=== PATIENT | male | born 1930 | race Caucasian/White ===

== ENCOUNTER 2017-01-11 11:16 | Inpatient (IN) | payer MEDICARE, MEDICAID ==
[2017-01-11 11:17] VITALS: BMI 29.6
[2017-01-11] MEDS ORDERED: Sodium Chloride 0.9% 1,000 ML IV ONE (11:29)
[2017-01-11 11:48] LABS: BASO # 0.1 K/uL (0.0-0.2); BASO % 1.3 % (0.0-2.0); EOS # 0.2 K/uL (0.0-0.7); EOS % 4.4 % (0.0-4.0); LYMPH # 1.9 K/uL (1.0-4.3); MEAN CELL VOLUME 90.6 fL (80.0-94.0); MEAN CORPUSCULAR HEMOGLOBIN 30.4 pg (27.0-31.0); MEAN CORPUSCULAR HGB CONC 33.5 g/dL (33.0-37.0); MEAN PLATELET VOLUME 8.3 fL (7.2-11.7); MONO # 0.6 K/uL (0.0-0.8); MONO % 11.4 % (0.0-10.0); NEUT # 2.5 K/uL (1.8-7.0); NEUT % 47.9 % (50.0-75.0); NRBC % 0.1 % (0.0-2.0); RBC 3.95 Mil/uL (4.40-5.90); RED CELL DISTRIBUTION WIDTH 13.4 % (11.5-14.5); WHITE BLOOD COUNT 5.3 K/uL (4.8-10.8)
[2017-01-11] MEDS ORDERED: Sodium Chloride 0.9% 1,000 ML ONE (11:48)
[2017-01-11 11:49] LABS: INR 1.1
[2017-01-11 11:58] LABS: ALBUMIN 3.6 g/dL (3.5-5.0)
[2017-01-11 12:02] LABS: ALB/GLOB RATIO 1.1 (1.0-2.1); CALCIUM 8.5 mg/dl (8.6-10.4)
--- NOTE | 2017-01-11 12:11 | C.PDOC ---
History Of Present Illness 87 y/o male, with history of HTN, DM, diverticulitis, presents to the emergency department for evaluation of abdominal pain which began around 2 weeks ago. Patient states he was evaluated and [place] [facility] for same complaint. Patient also notes he has been feeling weak. He denies fever, chills , nausea, vomiting. PMD: Dr. Carranza Time Seen by Provider: 01/11/17 11:21 Chief Complaint (Nursing): Abdominal Pain History Per: Patient History/Exam Limitations: no limitations Onset/Duration Of Symptoms: Other (2 weeks ) Current Symptoms Are (Timing): Still Present Radiation Of Pain To:: None Quality Of Discomfort: "Pain" Associated Symptoms: denies: Fever, Chills, Nausea, Vomiting Additional History Per: Patient Past Medical History Reviewed: Historical Data, Nursing Documentation, Vital Signs Vital Signs: Last Vital Signs Temp 98.1 F 01/11/17 15:45 Pulse 80 01/11/17 15:45 Resp 18 01/11/17 15:45 BP 104/62 01/11/17 15:45 Pulse Ox 96 01/11/17 15:45 - Medical History PMH: Diverticulitis, HTN Surgical History: Cholecystectomy, Pacemaker - [facility] Procedures COLONOSCOPY (11/30/14) ENDOSC POLYPECTOMY OF LG INTEST (03/13/07) Family History: States: Unknown Family Hx - Social History Hx Alcohol Use: No Hx Substance Use: No - Immunization History Hx Tetanus Toxoid Vaccination: No Hx Influenza Vaccination: Yes Hx Pneumococcal Vaccination: Yes Review Of Systems Constitutional: Negative for: Fever, Chills Gastrointestinal: Positive for: Abdominal Pain. Negative for: Nausea, Vomiting Neurological: Positive for: Weakness Physical Exam - Physical Exam Appears: Non-toxic, No Acute Distress Skin: Normal Color, Warm, Dry Head: Atraumatic Eye(s): bilateral: Normal Inspection Oral Mucosa: Moist Neck: Supple Chest: Symmetrical, No Deformity, No Tenderness Cardiovascular: Rhythm Regular, No Murmur Respiratory: Normal Breath Sounds, No Rales, No Rhonchi, No Wheezing Gastrointestinal/Abdominal: Soft, No Tenderness, No Guarding, No Rebound Back: Normal Inspection Extremity: Normal ROM, Capillary Refill (less than 2 seconds ) Neurological/Psych: Normal Speech, Normal Cognition Gait: Steady ED Course And Treatment - Laboratory Results Result Diagrams: 01/11/17 11:40 01/11/17 11:40 Lab Interpretation: No Acute Changes ECG: Interpreted By Me ECG Rhythm: V Paced ECG Interpretation: No Acute Changes O2 Sat by Pulse Oximetry: 98 (on RA) Pulse Ox Interpretation: Normal - Radiology Nexus Criteria: Focal Neuro Deficit - CT Scan/US No standard instances Other Rad Studies (CT/US): Read By Radiologist CT/US Interpretation: FINDINGS: LOWER THORAX: There is dependent atelectasis in the lung bases. There are calcified pleural plaques in the basilar pleura bilaterally. LIVER: The liver is normal in size. No gross lesion or ductal dilatation. GALLBLADDER AND BILE DUCTS: Surgically absent. PANCREAS: The pancreas is normal in size. No gross lesion or ductal dilatation. SPLEEN: The spleen is normal in size. ADRENALS: Both adrenal glands are normal in size without discrete nodule. KIDNEYS AND URETERS: Both kidneys are normal in size without hydronephrosis or nephrolithiasis. The non specific perinephric fat stranding. VASCULATURE: No aortic aneurysm. There are atherosclerotic aortoiliac calcifications. BOWEL: The small bowel loops are normal in caliber. There is left colonic diverticulosis. There is fluid in the descending and sigmoid colon. There is moderate amount of stool in the ascending and transverse colon. APPENDIX: Normal appendix. PERITONEUM: No free fluid. No free air. LYMPH NODES: No enlarged lymph nodes. BLADDER: Normal in appearance. REPRODUCTIVE: There is mild enlargement of the prostate gland. BONES: No acute fracture. Multilevel degenerative disc disease. OTHER FINDINGS : None. IMPRESSION: Extensive left colonic diverticulosis. No definite CT evidence for acute diverticulitis. No acute abdominal or pelvic abnormality constipation. 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 Progress Note: Labs, CT labs, and EKG ordered and reviewed. Patient received IV Fluids. On re-evaluation unable to ambulate Reassessment Condition: Improved - Physician Consult Information Physician Contacted: Kandi Ford Outcome Of Conversation: admit Disposition Doctor Will See Patient In The: Hospital Counseled Patient/Family Regarding: Studies Performed - Disposition Disposition: HOSPITALIZED Disposition Time: 16:00 Condition: STABLE - Clinical Impression Clinical Impression: Constipation, Abdominal discomfort, Dizziness, Kidney failure - PA / TREE KILLER / Resident Statement MD/DO has reviewed & agrees with the documentation as recorded. - Scribe Statement The provider has reviewed the documentation as recorded by the Scribe (Dee Ford) All medical record entries made by the Scribe were at my direction and personally dictated by me. I have reviewed the chart and agree that the record accurately reflects my personal performance of the history, physical exam, medical decision making, and the department course for this patient. I have also personally directed, reviewed, and agree with the discharge instructions and disposition. Decision To Admit - Pt Status Changed To: Hospital Disposition Of: Inpatient - Admit Certification Admit to Inpatient:: After my assessment, the patient will require hospitalization for at least two midnights. This is because of the severity of symptoms shown, intensity of services needed, and/or the medical risk in this patient being treated as an outpatient. - InPatient: Physician Admission Certification:: Chronic kidney Disease. Dizziness. Abdominal Pain - . Bed Request Type: Regular Admitting Physician: Todd Rizo Patient Diagnosis: Constipation, Abdominal discomfort, Dizziness, Kidney failure
--- NOTE | 2017-01-11 12:48 | CT ---
PROCEDURE: CT Abdomen and Pelvis without intravenous contrast HISTORY: Pain COMPARISON: None. TECHNIQUE: CT scan of the abdomen and pelvis was performed without administration of oral contrast. Intravenous contrast was not administered. Coronal and sagittal reformatted images were obtained. Radiation dose: Total exam DLP = 537.43 mGy-cm. This CT exam was performed using one or more of the following dose reduction techniques: Automated exposure control, adjustment of the mA and/or kV according to patient size, and/or use of iterative reconstruction technique. FINDINGS: LOWER THORAX: There is dependent atelectasis in the lung bases. There are calcified pleural plaques in the basilar pleura bilaterally. LIVER: The liver is normal in size. No gross lesion or ductal dilatation. GALLBLADDER AND BILE DUCTS: Surgically absent. PANCREAS: The pancreas is normal in size. No gross lesion or ductal dilatation. SPLEEN: The spleen is normal in size. ADRENALS: Both adrenal glands are normal in size without discrete nodule. KIDNEYS AND URETERS: Both kidneys are normal in size without hydronephrosis or nephrolithiasis. The non specific perinephric fat stranding. VASCULATURE: No aortic aneurysm. There are atherosclerotic aortoiliac calcifications. BOWEL: The small bowel loops are normal in caliber. There is left colonic diverticulosis. There is fluid in the descending and sigmoid colon. There is moderate amount of stool in the ascending and transverse colon. APPENDIX: Normal appendix. PERITONEUM: No free fluid. No free air. LYMPH NODES: No enlarged lymph nodes. BLADDER: Normal in appearance. REPRODUCTIVE: There is mild enlargement of the prostate gland. BONES: No acute fracture. Multilevel degenerative disc disease. OTHER FINDINGS: None. IMPRESSION: Extensive left colonic diverticulosis. No definite CT evidence for acute diverticulitis. No acute abdominal or pelvic abnormality constipation. 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
[2017-01-11 13:52] LABS: URINE BILIRUBIN NEGATIVE (NEGATIVE); URINE BLOOD NEGATIVE (NEGATIVE); URINE CLARITY Clear (Clear); URINE COLOR Yellow (YELLOW); URINE GLUCOSE (UA) NORMAL (Normal); URINE LEUKOCYTE ESTERASE NEG Leu/uL (Negative); URINE NITRATE NEGATIVE (NEGATIVE); URINE PROTEIN NEGATIVE (NEGATIVE); URINE UROBILINOGEN NORMAL mg/dL (0.2-1.0)
--- NOTE | 2017-01-11 18:46 | CP.PCM.HP ---
History of Present Illness - History of Present Illness History of Present Illness: Chief complaint: Weakness abdominal pain History present illness: 87-year-old male with history of hypertension diabetes diverticulosis recently was hospitalized with acute diverticulitis days, discharged to a week ago from the hospital. At home patient condition slowly got worse, he was not able to get up, he fell at least to 2 times while at home. According to the patient's family he is having unstable gait, and walking is somewhat disturbed, unable to stand up by himself, he needs assistance also. He is also having significant shaking. Recently he also started having increasing pain over the left upper quadrant, associated with the episodes of diarrhea, sometimes nausea. No fever noted, denies any chills. Shaking noted. Patient in the [facility] had treatment for diverticulosis and diverticulitis with the antibiotic. Past medical history: Hypertension diabetes diverticulosis pacemaker Allergy: No known drug allergy Personal history: Not spoken nonalcoholic lives with family members. No significant family history Review of system: Currently having no headache, but in consistent with weakness tiredness and easy fatigability. Unstable walking, and also falls. Patient has a pacemaker Vital signs reviewed No neck vein distention noted Chest good air entry bilaterally, no wheezing or rales noted CVS regular heart sound, no murmur noted Abdomen soft, nontender. Extremities no pedal edema [employer] alert awake oriented 3, no functional neurological deficit Patient is having shaking as well as tremor resting. Flapping tremor also noted occasionally. Labs reviewed Elevated creatinine level noted. 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 Abdominal pain, nonspecific, associated diverticulosis. Possible diverticulitis cannot be ruled out, dehydration, will continue the IV fluid, and intravenous Flagyl. Antibiotic. IV fluid. Monitor the fluid status. And will follow the patient Present on Admission - Present on Admission Any Indicators Present on Admission: No History of DVT/PE: No History of Uncontrolled Diabetes: No Urinary Catheter: No Decubitus Ulcer Present: No Past Patient History - Infectious Disease Hx of Infectious Diseases: None - Past Medical History & Family History Past Medical History?: Yes - Past Social History Smoking Status: Never Smoked - CARDIAC Hx Hypertension: Yes Hx Pacemaker: Yes - PULMONARY Hx Respiratory Disorders: No - NEUROLOGICAL Hx Neurological Disorder: No - HEENT Hx HEENT Problems: No - RENAL Hx Chronic Kidney Disease: No - ENDOCRINE/METABOLIC Hx Endocrine Disorders: Yes Hx Diabetes Mellitus Type 2: Yes - HEMATOLOGICAL/ONCOLOGICAL Hx Blood Disorders: No - INTEGUMENTARY Hx Dermatological Problems: No - MUSCULOSKELETAL/RHEUMATOLOGICAL Hx Musculoskeletal Disorders: No - GASTROINTESTINAL Hx Diverticulitis: Yes - GENITOURINARY/GYNECOLOGICAL Hx Genitourinary Disorders: No - PSYCHIATRIC Hx Substance Use: No - SURGICAL HISTORY Hx Cholecystectomy: Yes - ANESTHESIA Hx Anesthesia: Yes Hx Anesthesia Reactions: No Hx Malignant Hyperthermia: No Meds Allergies/Adverse Reactions: Allergies Allergy/AdvReac Type Severity Reaction Status Date / Time No Known Allergies Allergy Verified 01/11/17 11:28 Results - Vital Signs Recent Vital Signs: Last Vital Signs Temp 98.1 F 01/11/17 15:45 Pulse 80 01/11/17 15:45 Resp 18 01/11/17 15:45 BP 104/62 01/11/17 15:45 Pulse Ox 98 01/11/17 16:39 - Labs Result Diagrams: 01/11/17 11:40 01/11/17 11:40 Labs: Laboratory Results - last 24 hr 01/11/17 17:00 POC Glucose (mg/dL) 157 H
[2017-01-11] MEDS: Sodium Chloride 0.45% 1,000 ML IV SCH (19:19)
[2017-01-11 20:11] VITALS: RESP 20
--- NOTE | 2017-01-11 22:02 | CP.PCM.CON ---
History of Present Illness - History of Present Illness History of Present Illness: COVERING DR BOWERS (PATIENT KNOWN TO HIM FROM 2014 AND OFFICE) 87 yo male recently admitted to [facility] [place] for treatment of diverticulitis. Admitted today for lower abdominal pain and difficulty passing his bowels. Review of old records reveal patient had follow up colonoscopy in 11/2014 due to h/o colon polyps in the past and was found to have diverticulosis. CT Scan done in ER shows no acute findings in abdomen and pelvis other than left sided diverticular disease and moderate colonic stool and liquid. No mass, inflammation or obstruction. No bleeding, N/V. Pain is mostly in the epigastric and LUQ. Not relieved by defecation. Reports heartburn as well. Review of Systems - Constitutional Constitutional: absent: Anorexia, Weight Loss, Weakness - Cardiovascular Cardiovascular: absent: Chest Pain, Dyspnea, Irregular Heart Rhythm - Respiratory Respiratory: absent: Cough - Gastrointestinal Gastrointestinal: As Per HPI - Genitourinary Genitourinary: absent: Dysuria Past Patient History - Infectious Disease Hx of Infectious Diseases: None - Past Medical History & Family History Past Medical History?: Yes - Past Social History Smoking Status: Never Smoked Alcohol: None Drugs: Denies - CARDIAC Hx Hypertension: Yes Hx Pacemaker: Yes - PULMONARY Hx Respiratory Disorders: No - NEUROLOGICAL Hx Neurological Disorder: No - HEENT Hx HEENT Problems: No - RENAL Hx Chronic Kidney Disease: No - ENDOCRINE/METABOLIC Hx Endocrine Disorders: Yes Hx Diabetes Mellitus Type 2: Yes - HEMATOLOGICAL/ONCOLOGICAL Hx Blood Disorders: No Hx Cirrhosis: No Hx Hepatitis A: No Hx Hepatitis B: No Hx Hepatitis C: No Hx Human Immunodeficiency Virus (HIV): No - INTEGUMENTARY Hx Dermatological Problems: No - MUSCULOSKELETAL/RHEUMATOLOGICAL Hx Falls: No - GASTROINTESTINAL Hx Bowel Surgery: No Hx Clostridium Difficile: No Hx Colitis: No Hx Colostomy: No Hx Constipation: Yes Hx Crohn's Disease: No Hx Diarrhea: No Hx Diverticulitis: Yes Hx Esophageal Varices: No Hx Fatty Liver Disease: No Hx Gall Bladder Disease: No Hx Gastritis: No Hx Gastroesophageal Reflux: No Hx Hemorrhoids: Yes Hx Ileostomy: No Hx Irritable Bowel: No Hx Liver Failure: No Hx Nausea: No Hx Pancreatitis: No HX Swallowing Problems: No Hx Ulcer: No Hx Vomiting: No Other/Comment: colon polyps last colonoscopy by Dr Bowers 11/2014 - GENITOURINARY/GYNECOLOGICAL Hx Genitourinary Disorders: No - PSYCHIATRIC Hx Substance Use: No - SURGICAL HISTORY Hx Cholecystectomy: Yes - ANESTHESIA Hx Anesthesia: Yes Hx Anesthesia Reactions: No Hx Malignant Hyperthermia: No Meds Allergies/Adverse Reactions: Allergies Allergy/AdvReac Type Severity Reaction Status Date / Time No Known Allergies Allergy Verified 01/11/17 11:28 - Medications Medications: Current Medications Amlodipine Besylate (Norvasc) 10 mg PO DAILY [facility] Clopidogrel Bisulfate (Plavix) 75 mg PO DAILY [facility] Sodium Chloride (Sodium Chloride 0.45%) 1,000 mls @ 75 mls/hr IV .[id number] [facility] Last Admin: 01/11/17 19:19 Dose: 75 mls/hr Metronidazole 250 mg/ (Miscellaneous) 50 mls @ 100 mls/hr IVPB Q8 [facility] Isosorbide Mononitrate (Imdur) 30 mg PO DAILY [facility] Tamsulosin HCl (Flomax) 0.4 mg PO DAILY [facility] Physical Exam - Constitutional Appears: No Acute Distress - Head Exam Head Exam: ATRAUMATIC, NORMOCEPHALIC - Eye Exam Eye Exam: EOMI, PERRL - Neck Exam Neck exam: Negative for: Tenderness, Thyromegaly - Respiratory Exam Respiratory Exam: Clear to Auscultation Bilateral, NORMAL BREATHING PATTERN - Cardiovascular Exam Cardiovascular Exam: REGULAR RHYTHM, +S1 - GI/Abdominal Exam GI & Abdominal Exam: Normal Bowel Sounds, Soft, Tenderness. absent: Distended, Guarding, Hernia, Mass, Rebound Additional comments: Mild epigastric and LUQ tenderness to deep palpation. No masses or rebound. Normal bowel sounds - Rectal Exam Rectal Exam: NORMAL INSPECTION. absent: Black Stool, Bloody Stool - Extremities Exam Extremities exam: Positive for: normal inspection. Negative for: joint swelling , pedal edema, tenderness - Neurological Exam Neurological exam: Alert, Oriented x3 - Psychiatric Exam Psychiatric exam: Normal Affect, Normal Mood - Skin Skin Exam: Dry, Warm Results - Vital Signs Recent Vital Signs: Last Vital Signs Temp 97.1 F L 01/11/17 16:00 Pulse 72 01/11/17 16:00 Resp 20 01/11/17 16:00 BP 116/62 01/11/17 16:00 Pulse Ox 98 01/11/17 16:39 - Labs Result Diagrams: 01/12/17 08:24 01/12/17 08:24 Labs: Laboratory Results - last 24 hr 01/11/17 01/11/17 17:00 21:12 POC Glucose (mg/dL) 157 H 48 L - Imaging and Cardiology CT scan - abdomen Status: Image reviewed by me, Report reviewed by me Assessment & Plan (1) LUQ abdominal pain Assessment and Plan: No CT evidence of infection, inflammation or obstruction. Some symptoms suggestive of GERD, gastritis or PUD. Advance diet as tolerated. Protonix IV Consider EGD if symptoms persist. Colonoscopy done two years ago. Stool OBx3. Status: Acute (2) Diverticula of colon Assessment and Plan: as above. No diverticulitits seen on CT exam. Status: Acute (3) H/O adenomatous polyp of colon Assessment and Plan: f/u with Dr Bowers though age beyond that of recommended screening/surveillance by [facility]. Status: Acute
[2017-01-11] MEDS: metroNIDAZOLE IV 500 mg/100 ml 250 MG in Premixed IV 1 EA IVPB SCH (22:14)
[2017-01-12] MEDS: metroNIDAZOLE IV 500 mg/100 ml 250 MG in Premixed IV 1 EA IVPB SCH (05:20)
[2017-01-12 08:34] LABS: BASO # 0.1 K/uL (0.0-0.2); EOS # 0.3 K/uL (0.0-0.7); EOS % 4.9 % (0.0-4.0); HEMOGLOBIN 13.7 g/dL (12.0-18.0); LYMPH # 1.9 K/uL (1.0-4.3); LYMPH % 37.4 % (20.0-40.0); MEAN CELL VOLUME 90.7 fL (80.0-94.0); MEAN CORPUSCULAR HEMOGLOBIN 30.9 pg (27.0-31.0); MEAN CORPUSCULAR HGB CONC 34.1 g/dL (33.0-37.0); MEAN PLATELET VOLUME 8.4 fL (7.2-11.7); MONO # 0.5 K/uL (0.0-0.8); MONO % 10.5 % (0.0-10.0); NEUT # 2.3 K/uL (1.8-7.0); NEUT % 45.2 % (50.0-75.0); NRBC % 0.1 % (0.0-2.0); RBC 4.43 Mil/uL (4.40-5.90); RED CELL DISTRIBUTION WIDTH 13.6 % (11.5-14.5); WHITE BLOOD COUNT 5.2 K/uL (4.8-10.8)
[2017-01-12 08:44] LABS: ALB/GLOB RATIO 1.4 (1.0-2.1); ALBUMIN 3.9 g/dL (3.5-5.0)
[2017-01-12 09:40] LABS: FREE T4 0.77 ng/dL (0.78-2.19)
--- NOTE | 2017-01-12 09:52 | CT ---
PROCEDURE: CT HEAD WITHOUT CONTRAST. HISTORY: stroke /SDH COMPARISON: None available. TECHNIQUE: Axial computed tomography images were obtained through the head/brain without intravenous contrast. Radiation dose: Total exam DLP = 898.33 mGy-cm. This CT exam was performed using one or more of the following dose reduction techniques: Automated exposure control, adjustment of the mA and/or kV according to patient size, and/or use of iterative reconstruction technique. FINDINGS: HEMORRHAGE: No intracranial hemorrhage. BRAIN: There are mild chronic microangiopathic changes. There is no mass, mass effect or abnormal extra-axial fluid collection. VENTRICLES: There is moderate age-related global parenchymal volume loss and proportionate enlargement of the ventricles and cortical sulci. CALVARIUM: The skull base and calvarium are normal. PARANASAL SINUSES: Predominantly clear. MASTOID AIR CELLS: Predominantly clear. OTHER FINDINGS: None. . IMPRESSION: No acute intracranial abnormality. Mild chronic microangiopathic changes and moderate age-related global parenchymal volume loss.
[2017-01-12] MEDS: Sodium Chloride 0.45% 1,000 ML IV SCH ×2 (10:21→22:10)
[2017-01-12 11:06] LABS: FOLATE 17.4 ng/mL
--- NOTE | 2017-01-12 12:01 | CP.PCM.PN ---
Subjective - Date & Time of Evaluation Date of Evaluation: 01/12/17 Time of Evaluation: 11:59 - Subjective Subjective: Pain is better. Tolerating liquid diet. Reports a normal stool this am. Still with LUQ and epigastric mild discomfort. Lower abdomen no symptoms. Objective - Vital Signs/Intake and Output Vital Signs (last 24 hours): Temp Pulse Resp BP Pulse Ox 98.3 F 78 20 125/72 94 L 01/12/17 08:43 01/12/17 08:43 01/12/17 08:43 01/12/17 08:43 01/12/17 08:43 Intake and Output: 01/12/17 01/12/17 06:59 18:59 Intake Total 1600 Output Total 850 Balance 750 - Medications Medications: Current Medications Amlodipine Besylate (Norvasc) 10 mg PO DAILY [facility] Last Admin: 01/12/17 10:21 Dose: 10 mg Clopidogrel Bisulfate (Plavix) 75 mg PO DAILY [facility] Last Admin: 01/12/17 10:16 Dose: 75 mg Famotidine (Pepcid) 20 mg IVP Q12 [facility] Last Admin: 01/12/17 10:16 Dose: 20 mg Sodium Chloride (Sodium Chloride 0.45%) 1,000 mls @ 75 mls/hr IV .[id number] [facility] Last Admin: 01/12/17 10:21 Dose: 75 mls/hr Metronidazole (Flagyl) 250 mg in 50 mls @ 100 mls/hr IVPB Q8 [facility] Stop: 01/16/17 22:01 Isosorbide Mononitrate (Imdur) 30 mg PO DAILY [facility] Last Admin: 01/12/17 10:16 Dose: 30 mg Tamsulosin HCl (Flomax) 0.4 mg PO DAILY [facility] Last Admin: 01/12/17 10:16 Dose: 0.4 mg - Labs Labs: 01/12/17 08:24 01/12/17 08:24 PT 13.0 SECONDS (9.7-12.2) H 01/11/17 11:40 INR 1.1 01/11/17 11:40 - Constitutional Appears: No Acute Distress - Respiratory Exam Respiratory Exam: NORMAL BREATHING PATTERN - Cardiovascular Exam Cardiovascular Exam: REGULAR RHYTHM - GI/Abdominal Exam GI & Abdominal Exam: Soft, Tenderness, Normal Bowel Sounds. absent: Distended, Guarding, Rigid, Mass, Rebound - Extremities Exam Extremities Exam: Normal Inspection Assessment and Plan (1) LUQ abdominal pain Assessment & Plan: Advance diet as tolerated. Out patient follow up if tolerating diet today with Dr Mcgee. Awaiting stool OB On Protonix Status: Acute (2) Diverticula of colon Status: Acute (3) H/O adenomatous polyp of colon Status: Acute
[2017-01-12] MEDS: metroNIDAZOLE IV 250mg/50 ml 250 MG/50 ML BAG IVPB SCH ×2 (13:41→21:55)
--- NOTE | 2017-01-12 14:19 | CP.PCM.CON ---
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 PT AC REHAB WHEN MEDICALLY STABLE Past Patient History - Infectious Disease Hx of Infectious Diseases: None - Past Medical History & Family History Past Medical History?: Yes - Past Social History Smoking Status: Never Smoked Alcohol: None Drugs: Denies - CARDIAC Hx Hypertension: Yes Hx Pacemaker: Yes - PULMONARY Hx Respiratory Disorders: No - NEUROLOGICAL Hx Neurological Disorder: No - HEENT Hx HEENT Problems: No - RENAL Hx Chronic Kidney Disease: No - ENDOCRINE/METABOLIC Hx Endocrine Disorders: Yes Hx Diabetes Mellitus Type 2: Yes - HEMATOLOGICAL/ONCOLOGICAL Hx Blood Disorders: No Hx Cirrhosis: No Hx Hepatitis A: No Hx Hepatitis B: No Hx Hepatitis C: No Hx Human Immunodeficiency Virus (HIV): No - INTEGUMENTARY Hx Dermatological Problems: No - MUSCULOSKELETAL/RHEUMATOLOGICAL Hx Falls: No - GASTROINTESTINAL Hx Bowel Surgery: No Hx Clostridium Difficile: No Hx Colitis: No Hx Colostomy: No Hx Constipation: Yes Hx Crohn's Disease: No Hx Diarrhea: No Hx Diverticulitis: Yes Hx Esophageal Varices: No Hx Fatty Liver Disease: No Hx Gall Bladder Disease: No Hx Gastritis: No Hx Gastroesophageal Reflux: No Hx Hemorrhoids: Yes Hx Ileostomy: No Hx Irritable Bowel: No Hx Liver Failure: No Hx Nausea: No Hx Pancreatitis: No HX Swallowing Problems: No Hx Ulcer: No Hx Vomiting: No Other/Comment: colon polyps last colonoscopy by Dr Mcgee 11/2014 - GENITOURINARY/GYNECOLOGICAL Hx Genitourinary Disorders: No - PSYCHIATRIC Hx Substance Use: No - SURGICAL HISTORY Hx Cholecystectomy: Yes - ANESTHESIA Hx Anesthesia: Yes Hx Anesthesia Reactions: No Hx Malignant Hyperthermia: No Meds Allergies/Adverse Reactions: Allergies Allergy/AdvReac Type Severity Reaction Status Date / Time No Known Allergies Allergy Verified 01/11/17 11:28 - Medications Medications: Current Medications Amlodipine Besylate (Norvasc) 10 mg PO DAILY [facility] Last Admin: 01/12/17 10:21 Dose: 10 mg Clopidogrel Bisulfate (Plavix) 75 mg PO DAILY [facility] Last Admin: 01/12/17 10:16 Dose: 75 mg Famotidine (Pepcid) 20 mg IVP Q12 [facility] Last Admin: 01/12/17 10:16 Dose: 20 mg Sodium Chloride (Sodium Chloride 0.45%) 1,000 mls @ 75 mls/hr IV .[id number] [facility] Last Admin: 01/12/17 10:21 Dose: 75 mls/hr Metronidazole (Flagyl) 250 mg in 50 mls @ 100 mls/hr IVPB Q8 [facility] Stop: 01/16/17 22:01 Last Admin: 01/12/17 13:41 Dose: 100 mls/hr Isosorbide Mononitrate (Imdur) 30 mg PO DAILY [facility] Last Admin: 01/12/17 10:16 Dose: 30 mg Tamsulosin HCl (Flomax) 0.4 mg PO DAILY [facility] Last Admin: 01/12/17 10:16 Dose: 0.4 mg Results - Vital Signs Recent Vital Signs: Last Vital Signs Temp 98.3 F 01/12/17 08:43 Pulse 78 01/12/17 08:43 Resp 20 01/12/17 08:43 BP 125/72 01/12/17 08:43 Pulse Ox 94 L 01/12/17 08:43 - Labs Result Diagrams: 01/12/17 08:24 01/12/17 08:24 Labs: Laboratory Results - last 24 hr 01/11/17 01/11/17 01/11/17 17:00 21:12 21:50 WBC RBC Hgb Hct MCV MCH MCHC RDW Plt Count MPV Neut % (Auto) Lymph % (Auto) [place] % (Auto) Eos % (Auto) Baso % (Auto) Neut # Lymph # [place] # Eos # Baso # ESR Sodium Potassium Chloride Carbon Dioxide Anion Gap BUN Creatinine Est GFR ( Amer) Est GFR (Non-Af Amer) POC Glucose (mg/dL) 157 H 48 L 93 Random Glucose Calcium Total Bilirubin AST ALT Alkaline Phosphatase Ammonia C-React Prot High Sens Total Protein Albumin Globulin Albumin/Globulin Ratio Vitamin B12 Folate Free T4 TSH 3rd Generation 01/11/17 01/12/17 01/12/17 23:52 01:55 07:10 WBC RBC Hgb Hct MCV MCH MCHC RDW Plt Count MPV Neut % (Auto) Lymph % (Auto) [place] % (Auto) Eos % (Auto) Baso % (Auto) Neut # Lymph # [place] # Eos # Baso # ESR Sodium Potassium Chloride Carbon Dioxide Anion Gap BUN Creatinine Est GFR ( Amer) Est GFR (Non-Af Amer) POC Glucose (mg/dL) 100 74 Random Glucose Calcium Total Bilirubin AST ALT Alkaline Phosphatase Ammonia 20 C-React Prot High Sens Total Protein Albumin Globulin Albumin/Globulin Ratio Vitamin B12 Folate Free T4 TSH 3rd Generation 01/12/17 01/12/17 01/12/17 08:24 08:24 08:24 WBC 5.2 RBC 4.43 Hgb 13.7 Hct 40.2 MCV 90.7 MCH 30.9 MCHC 34.1 RDW 13.6 Plt Count 223 MPV 8.4 Neut % (Auto) 45.2 L Lymph % (Auto) 37.4 Mon[place] % (Auto) 10.5 H Eos % (Auto) 4.9 H Baso % (Auto) 2.0 Neut # 2.3 Lymph # 1.9 Monona # 0.5 Eos # 0.3 Baso # 0.1 ESR 14 Sodium 137 Potassium 4.4 Chloride 100 Carbon Dioxide 25 Anion Gap 17 BUN 20 Creatinine 1.5 Est GFR ( Amer) 54 Est GFR (Non-Af Amer) 44 POC Glucose (mg/dL) Random Glucose 109 Calcium 9.0 Total Bilirubin 0.5 AST 29 ALT 34 Alkaline Phosphatase 49 Ammonia C-React Prot High Sens 0.58 L Total Protein 6.7 Albumin 3.9 Globulin 2.8 Albumin/Globulin Ratio 1.4 Vitamin B12 444 Folate 17.4 Free T4 0.77 L TSH 3rd Generation 5.54 H 01/12/17 11:33 WBC RBC Hgb Hct MCV MCH MCHC RDW Plt Count MPV Neut % (Auto) Lymph % (Auto) [place] % (Auto) Eos % (Auto) Baso % (Auto) Neut # Lymph # [place] # Eos # Baso # ESR Sodium Potassium Chloride Carbon Dioxide Anion Gap BUN Creatinine Est GFR ( Amer) Est GFR (Non-Af Amer) POC Glucose (mg/dL) 175 H Random Glucose Calcium Total Bilirubin AST ALT Alkaline Phosphatase Ammonia C-React Prot High Sens Total Protein Albumin Globulin Albumin/Globulin Ratio Vitamin B12 Folate Free T4 TSH 3rd Generation
--- NOTE | 2017-01-12 17:24 | CON ---
ATTENDING PHYSICIAN: Dr. Todd Rizo MD LOCATION: The patient's room number 370, bed B. REASON FOR THE CONSULTATION: Dizziness and weakness. CHIEF COMPLAINT: The patient was brought into [facility] as per his primary attendant's advice because of his inability to get up by himself and history of fall at least 2 times at home. He was recently discharged from the hospital. From neurological point of view, I was called in to evaluate him for further management. HISTORY OF PRESENT ILLNESS: The patient is an 87-year-old right-handed male presenting with worsening of 2 to 3 days' history of generalized weakness, inability to walk by himself associated with fall at home. No history of loss of consciousness. This was all related to his unsteady gait. No history of association with speech and swallow evaluation. No history of visual disturbances. However, he admits dizziness whenever he sits up. No history of double vision. PAST MEDICAL HISTORY: Including diverticulitis, hypertension, diabetes mellitus. ALLERGIES: No known allergies. REVIEW OF SYSTEMS: All 12 systems being reviewed except neurological symptoms including dizziness and losing balance with fall. MEDICATIONS: Flagyl, Flomax, Imdur, Norvasc, Pepcid, Plavix, and IV fluids. PHYSICAL EXAMINATION: VITAL SIGNS: Blood pressure 125/72, mean artery pressure of 89, respiratory rate 16, temperature afebrile. NECK: Supple. No carotid bruits. HEART: Sounds *------* . LUNGS: Fair air entry. EXTREMITIES: No edema in legs. NEUROLOGICAL EXAMINATION: Mental status examination: He is awake, alert, oriented to person, place, and time. Speech intact; however, voice is too low. The patient is examined in the presence of his son. Visual field intact. Pupils reactive to light. Extraocular movements are normal. No primary gaze nystagmus. No facial sensory deficit. Mild facial asymmetry manifesting as flattening of right nasolabial fold, which maybe new versus old. Hearing is normal. Tongue is midline. Good gag. MOTOR EXAMINATION: Outstretched hand with eyes closed. No drift noted. Power is symmetric on either side. Deep tendon reflexes, biceps, brachioradialis, triceps, knee, and ankle all are absent. Plantars are upgoing on his right side, left side was downgoing. He was able to sit up by himself. Coordination of [id number] test is intact on getting out of the bed, Romberg sign negative on marching in one place leaning to his right side. CONCLUSION: Upon reviewing his history and neurological examination, the patient is presenting with generalized weakness, dizziness, history of falls due to his unsteadiness all raising the possibility of posterior cerebral artery ischemic process. The current examination also showed evidence of right hemiparesis. This is probably secondary to his underlying risk factors including hypertension, diabetes mellitus, and aging process with dehydration. WORKUP: CT of the head reviewed by me showed periventricular ischemic changes. Mild atrophy noted. EKG: Pacemaker rhythm. LABORATORY DATA: WBC 5.2, hemoglobin 13.7, hematocrit 40.2, platelets 223. Sodium 137, potassium 4.4, chloride 100, bicarbonate 17, GFR 54, glucose 175, calcium 9.0. Liver functions are normal. C-reactive protein 20, B12 444, TSH 5.54. RECOMMENDATION: 1. I agree with Plavix for now. 2. Carotid Doppler. 3. The patient cannot have MRI of the brain because of the pacemaker. 4. Hydration. 5. GI consult and recommendation to be followed. 6. The patient should be out of bed and physical therapy, including gait training, should be given while he is in the hospital. The patient's condition *------* discussed with him as well as his son. The patient will be followed while he is in the hospital. Reid Jiang MD
--- NOTE | 2017-01-12 18:44 | CP.PCM.PN ---
Subjective - Date & Time of Evaluation Date of Evaluation: 01/12/17 Time of Evaluation: 18:43 - Subjective Subjective: 87-year-old male with history of hypertension, diabetes, diverticulosis, admitted recently with acute diverticulitis. Patient readmitted with the worsening weakness, abdominal pain. Currently not able to eat well. And shaking and tremor noted, and stability upon walking. Is also having 2 episodes of fall at home. On examination: Vitals is stable. Chest good air entry bilaterally regular heart sound. Tenderness in the abdomen in the left upper quadrant region noted. Tolerating the liquid diet and this time, labs reviewed Assessment and recommendation: 87-year-old male with history diabetes, hypertension, hypercholesteremia, diuretic versus the This and diverticulitis. Admitted the patient with the worsening weakness, and also unstable gait and falling. GIneurology evaluation appreciated. Advance the diet and will follow the patient Objective - Vital Signs/Intake and Output Vital Signs (last 24 hours): Temp Pulse Resp BP Pulse Ox 97.9 F 75 20 125/67 96 01/12/17 15:00 01/12/17 15:00 01/12/17 15:00 01/12/17 15:00 01/12/17 15:00 Intake and Output: 01/12/17 01/12/17 06:59 18:59 Intake Total 1600 Output Total 850 Balance 750 - Medications Medications: Current Medications Amlodipine Besylate (Norvasc) 10 mg PO DAILY [facility] Last Admin: 01/12/17 10:21 Dose: 10 mg Clopidogrel Bisulfate (Plavix) 75 mg PO DAILY [facility] Last Admin: 01/12/17 10:16 Dose: 75 mg Diphenhydramine HCl (Benadryl) 25 mg PO HS [facility] Stop: 01/12/17 22:01 Famotidine (Pepcid) 20 mg IVP Q12 [facility] Last Admin: 01/12/17 10:16 Dose: 20 mg Sodium Chloride (Sodium Chloride 0.45%) 1,000 mls @ 75 mls/hr IV .[id number] [facility] Last Admin: 01/12/17 10:21 Dose: 75 mls/hr Metronidazole (Flagyl) 250 mg in 50 mls @ 100 mls/hr IVPB Q8 [facility] Stop: 01/16/17 22:01 Last Admin: 01/12/17 13:41 Dose: 100 mls/hr Isosorbide Mononitrate (Imdur) 30 mg PO DAILY [facility] Last Admin: 01/12/17 10:16 Dose: 30 mg Tamsulosin HCl (Flomax) 0.4 mg PO DAILY [facility] Last Admin: 01/12/17 10:16 Dose: 0.4 mg - Labs Labs: 01/12/17 08:24 01/12/17 08:24 PT 13.0 SECONDS (9.7-12.2) H 01/11/17 11:40 INR 1.1 01/11/17 11:40
[2017-01-12] MEDS ORDERED: DiphenhydrAMINE 12.5 mg/5 ml LIQ UD (5 ml) PO ONE (22:00)
[2017-01-13] MEDS: Sodium Chloride 0.45% 1,000 ML IV SCH ×2 (01:16→13:24)
[2017-01-13] MEDS: metroNIDAZOLE IV 250mg/50 ml 250 MG/50 ML BAG IVPB SCH ×3 (05:18→21:12)
--- NOTE | 2017-01-13 08:16 | PN ---
DATE: 01/13/2017 NEUROLOGICAL PROBLEM: Brainstem dysfunction manifesting with right hemiparesis, new versus old. PHYSICAL EXAMINATION GENERAL: The patient slept somewhat good, still he feels some dizziness. He did not get out of the bed. VITAL SIGNS: Blood pressure 107/69, mean arterial pressure of 81, respiratory rate 16, temperature 97.8, pulse rate 73. The current examination does not change any different than yesterday's exam. The patient is on electroencephalogram electrode placement. The patient recommended workup is on progress. Continue the present management. The patient is tolerating Plavix. The patient will be followed closely with you. Reid Jiang MD
--- NOTE | 2017-01-13 14:51 | VASCLAB ---
PROCEDURE: HISTORY: Dizziness COMPARISON: None available. TECHNIQUE: Grayscale and duplex Doppler evaluation of the cervical carotid and vertebral arteries were performed. The common carotid, carotid bifurcations and cervical Internal Carotid Artery (ICA) and proximal External Carotid Artery (ECA) were evaluated. The vertebral arteries were evaluated for gross patency and flow direction. Report prepared by Rafy Velez, BS, RVT FINDINGS: RIGHT CAROTID ARTERIES: 1. Common Carotid Artery: Minimal heterogeneous plaque formation of the right common carotid artery. Maximum Peak Systolic velocity: 75 cm/sec: End-diastolic velocity 13 cm/sec. 2. Carotid Bifurcation: Calcific plaque formation. Maximum Peak Systolic velocity: 64 cm/sec: End-diastolic velocity 10 cm/sec. 3. Internal Carotid Artery: Plaque description: Calcific 3.1. Proximal Segment: Peak systolic velocity 53 cm/sec: End-diastolic velocity 12 cm/sec - % stenosis 0-15% 3.2. Middle Segment: Peak systolic velocity 81 cm/sec: End-diastolic velocity 19 cm/sec - % stenosis 0-15% 3.3. Distal Segment: Peak systolic velocity 66 cm/sec: End-diastolic velocity 15 cm/sec - % stenosis 0-15% 4. External Carotid Artery: No significant focal plaque formation. Peak systolic velocity 78 cm/sec 5. ICA/CCA Ratio: 1.2 LEFT CAROTID ARTERIES: 1. Common Carotid Artery: Minimal heterogeneous plaque formation of the left common carotid artery. Maximum Peak Systolic velocity: 80 cm/sec: End-diastolic velocity 16 cm/sec. 2. Carotid Bifurcation: Calcific plaque formation. Maximum Peak Systolic velocity: 47 cm/sec: End-diastolic velocity 9 cm/sec. 3. Internal Carotid Artery: Plaque description: Calcific 3.1. Proximal Segment: Peak systolic velocity 66 cm/sec: End-diastolic velocity 16 cm/sec - % stenosis 0-15% 3.2. Middle Segment: Peak systolic velocity 83 cm/sec: End-diastolic velocity 20 cm/sec - % stenosis 0-15% 3.3. Distal Segment: Peak systolic velocity 74 cm/sec: End-diastolic velocity 20 cm/sec - % stenosis 0-15% 4. External Carotid Artery: No significant focal plaque formation. Peak systolic velocity 119 cm/sec 5. ICA/CCA Ratio: 1.0 VERTEBRAL ARTERIES: 1. Right Vertebral Artery: The right vertebral artery flow direction is antegrade. 2. Left Vertebral Artery: The left vertebral artery flow direction is antegrade. OTHER FINDINGS: 1. Right Brachial Blood pressure: 136 mmHg. 2. Left Brachial Blood pressure: 130 mmHg. IMPRESSION: RIGHT: Duplex scan does not suggest hemodynamically significant stenosis of the right extracranial carotid arteries. LEFT: Duplex scan does not suggest hemodynamically significant stenosis of the left extracranial carotid arteries.
--- NOTE | 2017-01-13 15:44 | CP.PCM.PN ---
Subjective - Date & Time of Evaluation Date of Evaluation: 01/13/17 Time of Evaluation: 15:42 - Subjective Subjective: CC: follow up abdominal pain upper abdominal discomfort, mild, tolerating liquids, denies constipation. On Pepcid Objective - Vital Signs/Intake and Output Vital Signs (last 24 hours): Temp Pulse Resp BP Pulse Ox 97.8 F 73 20 107/69 96 01/13/17 07:24 01/13/17 07:24 01/13/17 07:24 01/13/17 07:24 01/13/17 07:24 Intake and Output: 01/13/17 01/13/17 06:59 18:59 Intake Total 1300 1100 Output Total 800 Balance 1300 300 - Medications Medications: Current Medications Amlodipine Besylate (Norvasc) 10 mg PO DAILY [facility] Last Admin: 01/13/17 09:27 Dose: 10 mg Clopidogrel Bisulfate (Plavix) 75 mg PO DAILY [facility] Last Admin: 01/13/17 09:30 Dose: 75 mg Famotidine (Pepcid) 20 mg IVP Q12 [facility] Last Admin: 01/13/17 09:29 Dose: 20 mg Heparin Sodium (Porcine) (Heparin) 5,000 units SC Q12 [facility] Last Admin: 01/13/17 09:28 Dose: 5,000 units Sodium Chloride (Sodium Chloride 0.45%) 1,000 mls @ 75 mls/hr IV .[id number] [facility] Last Admin: 01/13/17 13:24 Dose: 75 mls/hr Metronidazole (Flagyl) 250 mg in 50 mls @ 100 mls/hr IVPB Q8 [facility] Stop: 01/16/17 22:01 Last Admin: 01/13/17 13:25 Dose: 100 mls/hr Isosorbide Mononitrate (Imdur) 30 mg PO DAILY [facility] Last Admin: 01/13/17 09:30 Dose: 30 mg Tamsulosin HCl (Flomax) 0.4 mg PO DAILY [facility] Last Admin: 01/13/17 09:30 Dose: 0.4 mg - Labs Labs: 01/12/17 08:24 PT 13.0 SECONDS (9.7-12.2) H 01/11/17 11:40 INR 1.1 01/11/17 11:40 - Constitutional Appears: Well, No Acute Distress - Head Exam Head Exam: NORMOCEPHALIC - Eye Exam Eye Exam: absent: Scleral icterus - Respiratory Exam Respiratory Exam: Clear to Ausculation Bilateral - Cardiovascular Exam Cardiovascular Exam: REGULAR RHYTHM - GI/Abdominal Exam GI & Abdominal Exam: Soft. absent: Tenderness, Mass Assessment and Plan (1) Diverticula of colon Assessment & Plan: Long history of diverticulosis. Stable. No diverticulitis Status: Acute (2) Abdominal pain Assessment & Plan: maily epigastric. ? peptic On pepcid Monitor Status: Acute
[2017-01-14] MEDS: Sodium Chloride 0.45% 1,000 ML IV SCH ×2 (00:04→13:32)
[2017-01-14 00:51] VITALS: O2SAT 97
--- NOTE | 2017-01-14 04:47 | EEG ---
DATE: 01/13/2017 This is a 16-channel electroencephalogram of awake and drowsy adult. During the study, photic stimulation was performed. Hyperventilation was not performed. The resting electroencephalogram consists of low amplitude, 20 to 30 microvolt, 8 to 9 Hz alpha activity seen at parietal and occipital leads. Anterior fast activity superimposed with 2 to 3 Hz delta activity seen at frontal and central leads. Some artifact contaminated the background rhythm. Some movement artifact also contaminated the background rhythm. The photic stimulation did not evoke driving response noted at 2 to 25 Hz. Intermittent high amplitude 3 to 4 Hz delta activity is seen. The photic stimulation did not evoke driving response noted at 2 to 25 Hz. IMPRESSION: This is a normal electroencephalogram of awake and drowsy adult. During the study neither electroencephalographic paroxysmal activities nor noted. Reid Jiang MD
[2017-01-14] MEDS: metroNIDAZOLE IV 250mg/50 ml 250 MG/50 ML BAG IVPB SCH ×2 (05:35→13:32)
[2017-01-14 07:49] VITALS: BP 131/75; PULSE 65
--- NOTE | 2017-01-14 08:08 | PN ---
DATE: 01/14/2017 NEUROLOGICAL PROBLEM: Possible posterior cerebral territory ischemic process manifesting with right hemiparesis. PHYSICAL EXAMINATION VITAL SIGNS: Blood pressure 109/59, mean arterial pressure of 75, respiratory rate is 16, temperature afebrile. NEUROLOGICAL: The patient is awake, alert, and oriented to person, place, and time. Denies dizziness. No focal weakness. The patient is stable for more than 48-hour period at present. WORKUP: CT of the brain, no acute infarct. EEG is normal for his age. No paroxysmal activities or focal swelling noted. The patient is stable with Plavix at present. No further workup is needed. The patient is neurologically stable. I would like to send him off for further assistance. Please do not hesitate to contact me. Reid Jiang MD
[2017-01-14] MEDS ORDERED: (Novolog) Insulin Aspart, Recombinant 100 u/ml 10 ml vial SC ONE (16:21)
--- NOTE | 2017-01-14 16:30 | CP.PCM.PN ---
Subjective - Date & Time of Evaluation Date of Evaluation: 01/14/17 Time of Evaluation: 16:28 - Subjective Subjective: F/U abdom pain Son is present Denies CP, SOB, fever, [facility], Rb, melena, dysphagia, Objective - Vital Signs/Intake and Output Vital Signs (last 24 hours): Temp Pulse Resp BP Pulse Ox 97.5 F L 65 20 131/75 97 01/14/17 07:46 01/14/17 07:46 01/14/17 07:46 01/14/17 07:46 01/14/17 07:46 Intake and Output: 01/14/17 01/14/17 06:59 18:59 Intake Total 1320 Balance 1320 - Medications Medications: Current Medications Amlodipine Besylate (Norvasc) 10 mg PO DAILY [facility] Last Admin: 01/14/17 09:23 Dose: 10 mg Clopidogrel Bisulfate (Plavix) 75 mg PO DAILY [facility] Last Admin: 01/14/17 09:23 Dose: 75 mg Famotidine (Pepcid) 20 mg IVP Q12 [facility] Last Admin: 01/14/17 09:23 Dose: 20 mg Heparin Sodium (Porcine) (Heparin) 5,000 units SC Q12 [facility] Last Admin: 01/14/17 09:23 Dose: 5,000 units Sodium Chloride (Sodium Chloride 0.45%) 1,000 mls @ 75 mls/hr IV .[id number] [facility] Last Admin: 01/14/17 13:32 Dose: Not Given Metronidazole (Flagyl) 250 mg in 50 mls @ 100 mls/hr IVPB Q8 [facility] Stop: 01/16/17 22:01 Last Admin: 01/14/17 13:32 Dose: 100 mls/hr Isosorbide Mononitrate (Imdur) 30 mg PO DAILY [facility] Last Admin: 01/14/17 09:23 Dose: 30 mg Tamsulosin HCl (Flomax) 0.4 mg PO DAILY [facility] Last Admin: 01/14/17 09:23 Dose: 0.4 mg - Labs Labs: 01/12/17 08:24 01/12/17 08:24 PT 13.0 SECONDS (9.7-12.2) H 01/11/17 11:40 INR 1.1 01/11/17 11:40 - Constitutional Appears: Non-toxic - Respiratory Exam Respiratory Exam: Clear to Ausculation Bilateral - Cardiovascular Exam Cardiovascular Exam: RRR - GI/Abdominal Exam GI & Abdominal Exam: Soft, Normal Bowel Sounds. absent: Tenderness - Extremities Exam Extremities Exam: absent: Calf Tenderness - Neurological Exam Neurological Exam: Alert. absent: Oriented x3 Assessment and Plan (1) Abdominal discomfort Assessment & Plan: Reports abdom pain is better Rec- F/U in office. Consider outpt EGD. Status: Acute (2) Constipation Status: Acute (3) Diverticula of colon Assessment & Plan: divert diet Status: Acute (4) H/O adenomatous polyp of colon Status: Acute
--- NOTE | 2017-01-14 16:30 | CP.PCM.PN ---
Subjective - Date & Time of Evaluation Date of Evaluation: 01/14/17 Time of Evaluation: 16:30 - Subjective Subjective: PT SEEN THIS MORNING BY DR. ENRIQUEZ DURING ROUNDS AND CLEARED FOR D/C HOME TODAY. PT TO F/.U WITH PMD, DR. ALVARADO, IN OFFICE NEXT WEEK. WILL ALSO F/U WITH CARDIOLOGY. CONTINUE ALL MEDS AT HOME. DISCUSSED PLAN AND F/U WITH PT AND SON AT LENGTH. NO FURTHER ORDERS. Objective - Vital Signs/Intake and Output Vital Signs (last 24 hours): Temp Pulse Resp BP Pulse Ox 97.5 F L 65 20 131/75 97 01/14/17 07:46 01/14/17 07:46 01/14/17 07:46 01/14/17 07:46 01/14/17 07:46 Intake and Output: 01/14/17 01/14/17 06:59 18:59 Intake Total 1320 Balance 1320 - Medications Medications: Current Medications Amlodipine Besylate (Norvasc) 10 mg PO DAILY [facility] Last Admin: 01/14/17 09:23 Dose: 10 mg Clopidogrel Bisulfate (Plavix) 75 mg PO DAILY [facility] Last Admin: 01/14/17 09:23 Dose: 75 mg Famotidine (Pepcid) 20 mg IVP Q12 [facility] Last Admin: 01/14/17 09:23 Dose: 20 mg Heparin Sodium (Porcine) (Heparin) 5,000 units SC Q12 [facility] Last Admin: 01/14/17 09:23 Dose: 5,000 units Sodium Chloride (Sodium Chloride 0.45%) 1,000 mls @ 75 mls/hr IV .[id number] [facility] Last Admin: 01/14/17 13:32 Dose: Not Given Metronidazole (Flagyl) 250 mg in 50 mls @ 100 mls/hr IVPB Q8 [facility] Stop: 01/16/17 22:01 Last Admin: 01/14/17 13:32 Dose: 100 mls/hr Isosorbide Mononitrate (Imdur) 30 mg PO DAILY [facility] Last Admin: 01/14/17 09:23 Dose: 30 mg Tamsulosin HCl (Flomax) 0.4 mg PO DAILY [facility] Last Admin: 01/14/17 09:23 Dose: 0.4 mg - Labs Labs: 01/12/17 08:24 07/30/17 08:24 PT 13.0 SECONDS (9.7-12.2) H 01/11/17 11:40 INR 1.1 01/11/17 11:40
[2017-01-14 17:06] VITALS: TEMP 97.4
--- NOTE | 2017-01-14 19:23 | CP.PCM.PN ---
Subjective - Date & Time of Evaluation Date of Evaluation: 01/14/17 Time of Evaluation: 19:22 - Subjective Subjective: Patient is currently feeling somewhat improvement in abdominal pain, no nausea vomiting, tolerating the oral feeding Vital signs stable. Chest good air entry bilaterally regular heart sound nontender abdomen Labs reviewed Assessment and recommendation: 87-year-old male with history of diabetes hypertension diverticulosis admitted with abdominal pain nonspecific. We'll continue the current treatment. Patient is currently stable. He will be discharged home, he will follow-up as an outpatient for EGD. We will continue the Protonix Objective - Vital Signs/Intake and Output Vital Signs (last 24 hours): Temp Pulse Resp BP Pulse Ox 97.4 F L 65 20 131/75 97 01/14/17 15:04 01/14/17 16:44 01/14/17 15:04 01/14/17 16:44 01/14/17 16:44 Intake and Output: 01/14/17 01/15/17 18:59 06:59 Intake Total 500 Output Total 300 Balance 200 - Medications Medications: Current Medications Amlodipine Besylate (Norvasc) 10 mg PO DAILY [facility] Last Admin: 01/14/17 09:23 Dose: 10 mg Clopidogrel Bisulfate (Plavix) 75 mg PO DAILY [facility] Last Admin: 01/14/17 09:23 Dose: 75 mg Famotidine (Pepcid) 20 mg IVP Q12 [facility] Last Admin: 01/14/17 09:23 Dose: 20 mg Heparin Sodium (Porcine) (Heparin) 5,000 units SC Q12 [facility] Last Admin: 01/14/17 09:23 Dose: 5,000 units Sodium Chloride (Sodium Chloride 0.45%) 1,000 mls @ 75 mls/hr IV .[id number] [facility] Last Admin: 01/14/17 13:32 Dose: Not Given Metronidazole (Flagyl) 250 mg in 50 mls @ 100 mls/hr IVPB Q8 [facility] Stop: 01/16/17 22:01 Last Admin: 01/14/17 13:32 Dose: 100 mls/hr Isosorbide Mononitrate (Imdur) 30 mg PO DAILY [facility] Last Admin: 01/14/17 09:23 Dose: 30 mg Tamsulosin HCl (Flomax) 0.4 mg PO DAILY [facility] Last Admin: 01/14/17 09:23 Dose: 0.4 mg - Labs Labs: 01/12/17 08:24 01/12/17 08:24 PT 13.0 SECONDS (9.7-12.2) H 01/11/17 11:40 INR 1.1 01/11/17 11:40
--- NOTE | 2017-01-15 20:59 | CP.PCM.PN ---
Subjective - Date & Time of Evaluation Date of Evaluation: 01/13/17 Time of Evaluation: 20:57 - Subjective Subjective: Patient is still having some abdominal pain. No nausea. No episodes of vomiting. Tolerating the oral feeding Patient was seen by GI. Clinically otherwise stable Chest good air entry bilaterally regular heart sound nontender abdomen Labs reviewed Patient is clinical stable otherwise. If patient continues to be improving, and there is no further management, our plan for endoscopy patient can be discharged home tomorrow. Will follow the patient Objective - Vital Signs/Intake and Output Vital Signs (last 24 hours): Temp Pulse Resp BP Pulse Ox 97.4 F L 65 20 131/75 97 01/14/17 15:04 01/14/17 16:44 01/14/17 15:04 01/14/17 16:44 01/14/17 16:44 - Labs Labs: 01/12/17 08:24 01/12/17 08:24 PT 13.0 SECONDS (9.7-12.2) H 01/11/17 11:40 INR 1.1 01/11/17 11:40
--- NOTE | 2017-01-15 21:01 | CP.PCM.DIS ---
Provider - Provider Date of Admission: 01/11/17 14:31 Attending physician: Todd Enriquez MD Time Spent in preparation of Discharge (in minutes): 45 Hospital Course - Lab Results Lab Results: Most Recent Lab Values WBC 5.2 K/uL (4.8-10.8) 01/12/17 08:24 RBC 4.43 Mil/uL (4.40-5.90) 01/12/17 08:24 Hgb 13.7 g/dL (12.0-18.0) 01/12/17 08:24 Hct 40.2 % (35.0-51.0) 01/12/17 08:24 MCV 90.7 fL (80.0-94.0) 01/12/17 08:24 MCH 30.9 pg (27.0-31.0) 01/12/17 08:24 MCHC 34.1 g/dL (33.0-37.0) 01/12/17 08:24 RDW 13.6 % (11.5-14.5) 01/12/17 08:24 Plt Count 223 K/uL (130-400) 01/12/17 08:24 MPV 8.4 fL (7.2-11.7) 01/12/17 08:24 Neut % (Auto) 45.2 % (50.0-75.0) L 01/12/17 08:24 Lymph % (Auto) 37.4 % (20.0-40.0) 01/12/17 08:24 [place] % (Auto) 10.5 % (0.0-10.0) H 01/12/17 08:24 Eos % (Auto) 4.9 % (0.0-4.0) H 01/12/17 08:24 Baso % (Auto) 2.0 % (0.0-2.0) 01/12/17 08:24 Neut # 2.3 K/uL (1.8-7.0) 01/12/17 08:24 Lymph # 1.9 K/uL (1.0-4.3) 01/12/17 08:24 [place] # 0.5 K/uL (0.0-0.8) 01/12/17 08:24 Eos # 0.3 K/uL (0.0-0.7) 01/12/17 08:24 Baso # 0.1 K/uL (0.0-0.2) 01/12/17 08:24 ESR 14 mm/hr (0-15) 01/12/17 08:24 PT 13.0 SECONDS (9.7-12.2) H 01/11/17 11:40 INR 1.1 01/11/17 11:40 Sodium 137 mmol/L (132-148) 01/12/17 08:24 Potassium 4.4 mmol/L (3.6-5.2) 01/12/17 08:24 Chloride 100 mmol/L (98-107) 01/12/17 08:24 Carbon Dioxide 25 mmol/L (22-30) 01/12/17 08:24 Anion Gap 17 (10-20) 01/12/17 08:24 BUN 20 mg/dL (9-20) 01/12/17 08:24 Creatinine 1.5 MG/DL (0.8-1.5) 01/12/17 08:24 Est GFR ( Amer) 54 01/12/17 08:24 Est GFR (Non-Af Amer) 44 01/12/17 08:24 POC Glucose (mg/dL) 277 mg/dL (65-110) H 01/14/17 16:27 Random Glucose 109 mg/dL (75-110) 01/12/17 08:24 Hemoglobin A1c 8.5 % (4.2-6.5) H 01/12/17 08:24 Lactic Acid 1.2 mmol/L (0.7-2.1) 01/11/17 11:41 Calcium 9.0 mg/dl (8.6-10.4) 01/12/17 08:24 Total Bilirubin 0.5 mg/dL (0.2-1.3) 01/12/17 08:24 AST 29 U/L (17-59) 01/12/17 08:24 ALT 34 U/L (21-72) 01/12/17 08:24 Alkaline Phosphatase 49 U/L (38-126) 01/12/17 08:24 Ammonia 20 umol/L (9-33) 01/11/17 23:52 C-React Prot High Sens 0.58 mg/L (1.00-3.00) L 01/12/17 08:24 Total Protein 6.7 g/dL (6.3-8.3) 01/12/17 08:24 Albumin 3.9 g/dL (3.5-5.0) 01/12/17 08:24 Globulin 2.8 gm/dL (2.2-3.9) 01/12/17 08:24 Albumin/Globulin Ratio 1.4 (1.0-2.1) 01/12/17 08:24 Lipase 45 U/L (23-300) 01/11/17 11:40 Vitamin B12 444 pg/mL (239-931) 01/12/17 08:24 Folate 17.4 ng/mL 01/12/17 08:24 Free T4 0.77 ng/dL (0.78-2.19) L 01/12/17 08:24 TSH 3rd Generation 5.54 mIU/L (0.46-4.68) H 01/12/17 08:24 Urine Color Yellow (YELLOW) 01/11/17 13:42 Urine Clarity Clear (Clear) 01/11/17 13:42 Urine pH 7.0 (5.0-8.0) 01/11/17 13:42 Ur Specific [place] 1.005 (1.003-1.030) 01/11/17 13:42 Urine Protein Negative mg/dL (NEGATIVE) 01/11/17 13:42 Urine Glucose (UA) Normal mg/dL (Normal) 01/11/17 13:42 Urine Ketones Negative mg/dL (NEGATIVE) 01/11/17 13:42 Urine Blood Negative (NEGATIVE) 01/11/17 13:42 Urine Nitrate Negative (NEGATIVE) 01/11/17 13:42 Urine Bilirubin Negative (NEGATIVE) 01/11/17 13:42 Urine Urobilinogen Normal mg/dL (0.2-1.0) 01/11/17 13:42 Ur Leukocyte Esterase Neg Kimberly/uL (Negative) 01/11/17 13:42 Stool Occult Blood Negative (NEGATIVE) 01/13/17 12:49 Serum Immunofixation Not detected (Not Detected) 01/12/17 08:24 - Hospital Course Hospital Course: History present illness: 87-year-old male with history of hypertension diabetes diverticulosis recently was hospitalized with acute diverticulitis days, discharged to a week ago from the hospital. At home patient condition slowly got worse, he was not able to get up, he fell at least to 2 times while at home. According to the patient's family he is having unstable gait, and walking is somewhat disturbed, unable to stand up by himself, he needs assistance also. He is also having significant shaking. Recently he also started having increasing pain over the left upper quadrant, associated with the episodes of diarrhea, sometimes nausea. No fever noted, denies any chills. Shaking noted. Patient in the [facility] had treatment for diverticulosis and diverticulitis with the antibiotic. Past medical history: Hypertension diabetes diverticulosis pacemaker Allergy: No known drug allergy Personal history: Not spoken nonalcoholic lives with family members. No significant family history Review of system: Currently having no headache, but in consistent with weakness tiredness and easy fatigability. Unstable walking, and also falls. Patient has a pacemaker Vital signs reviewed No neck vein distention noted Chest good air entry bilaterally, no wheezing or rales noted CVS regular heart sound, no murmur noted Abdomen soft, nontender. 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 Flapping tremor also noted occasionally. Labs reviewed Elevated creatinine level noted. 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 Abdominal pain, nonspecific, associated diverticulosis. Possible diverticulitis cannot be ruled out, dehydration, will continue the IV fluid, and intravenous Flagyl. Antibiotic. IV fluid. Monitor the fluid status. And will follow the patient Patient is readmitted to the hospital with a possible colitis. Started on intravenous Flagyl. Patient continues to have symptoms of epigastric discomfort. Slowly the diet was advanced to regular diet. Patient tolerated the diet very well. Also considered a neurological evaluation, patient was suspected having some cerebellar signs. But no active diagnosis was made. CAT scan of the head is negative. Carotid Doppler also negative The patient continues to improve, he is able to walk with the assistance. Less tremor noted Clinical stable at this time. Patient will be discharged home. I also spoke to the inspector and sorter, patient will undergo outpatient endoscopy, and will follow up with the PMD. Discharge Exam - Head Exam Head Exam: NORMOCEPHALIC Discharge Plan - Follow Up Plan Condition: STABLE Disposition: HOME/ ROUTINE Instructions: Chronic Kidney Disease (DC), Acute Abdominal Pain (DC) Additional Instructions: [facility] WOLFF [facility], DR. ALVARADO, EN WOLFF OFICINA TIERRA JUEVES PARA GEORGE JOSEE DE FOLLOW UP---PUEDES LLEVAR LA COPIA DE ABRAHAM RESULTADOS PARA MANTENER EN WOLFF RECORD. CONTINUA WOLFF MEDICAMENTOS EN CASA KLAUDIA NORMAL. PARA WOLFF INSULINA, NETTIE 40 UNIDOS POR AHORA HASTA QUE USTED [facility]ZO [facility] PRIMARIO. SI USTED TIENE MAS PREGUNTAS, PUEDES LLAMAR A WOLFF MEDICO O AL DR. ENRIQUEZ. Referrals: Jerel Alvarado [Staff Provider] - Reid Jiang MD [Staff Provider] - Todd Enriquez MD [Staff Provider] - Sven Walker MD [Staff Provider] - Boogie Mcgee MD [Staff Provider] -
== END 2017-01-14 17:35 | disposition home or self-care (01) | DRG 392 ==
LOC: C.ER 11:16 → C.9E 14:31 → C.3T 15:27
PROVIDERS: ADMIT Internal Medicine; ATTEND Internal Medicine
DX: K57.30 Diverticulosis of large intestine without perforation or abscess without bleeding (principal); G81.91 Hemiplegia, unspecified affecting right dominant side; N19 Unspecified kidney failure; E11.9 Type 2 diabetes mellitus without complications; E86.0 Dehydration; W19.XXXA Unspecified fall, initial encounter; E78.00 Pure hypercholesterolemia, unspecified; I10 Essential (primary) hypertension; R29.6 Repeated falls; J61 Pneumoconiosis due to asbestos and other mineral fibers; R25.1 Tremor, unspecified; Y92.009 Unspecified place in unspecified non-institutional (private) residence as the place of occurrence of the external cause; Z86.010 Personal history of colon polyps; Z91.81 History of falling; Z95.0 Presence of cardiac pacemaker; Z90.49 Acquired absence of other specified parts of digestive tract

== ENCOUNTER 2017-03-16 10:19 | Observation (INO) | payer MEDICARE, MEDICAID ==
[2017-03-16 10:19] VITALS: BMI 29.6
--- NOTE | 2017-03-16 11:13 | C.PDOC ---
History Of Present Illness 87-year-old male, presents to the emergency department with complaints of generalized weakness for the past 3-4 days. Patient states he is experiencing a tingling sensation in left arm, that is also associated with nausea. Patient also noted mild pain in abdomen. He is post-colonoscopy 1 week ago. Patient denies trauma, fever, numbness, or any other associated symptoms. No other complaints at this time. Time Seen by Provider: 03/16/17 10:44 Chief Complaint (Nursing): Weakness/Neurological Deficit History Per: Patient History/Exam Limitations: no limitations Onset/Duration Of Symptoms: Days Current Symptoms Are (Timing): Still Present Past Medical History Reviewed: Historical Data, Nursing Documentation, Vital Signs Vital Signs: Last Vital Signs Temp 98.1 F 03/16/17 14:19 Pulse 78 03/16/17 14:19 Resp 20 03/16/17 14:19 BP 137/89 03/16/17 14:19 Pulse Ox 94 L 03/16/17 14:57 - Medical History PMH: Diverticulitis, HTN Denies: Crohn's Disease, Gastritis, Gall Bladder Disease, HIV, Pancreatitis, Chronic Kidney Disease Surgical History: Cholecystectomy, Pacemaker - [facility] Procedures COLONOSCOPY (11/30/14) ENDOSC POLYPECTOMY OF LG INTEST (03/13/07) Family History: States: No Known Family Hx - Social History Hx Alcohol Use: No Hx Substance Use: No - Immunization History Hx Tetanus Toxoid Vaccination: No Hx Influenza Vaccination: Yes Hx Pneumococcal Vaccination: Yes Review Of Systems Except As Marked, All Systems Reviewed And Found Negative. Constitutional: Positive for: Weakness. Negative for: Fever, Chills Respiratory: Negative for: Shortness of Breath Gastrointestinal: Positive for: Nausea, Abdominal Pain. Negative for: Vomiting Musculoskeletal: Negative for: Back Pain Neurological: Negative for: Weakness, Numbness Physical Exam - Physical Exam Appears: Non-toxic, No Acute Distress, Chronically Ill Skin: Warm, Dry, No Rash Head: Atraumatic, Normacephalic Eye(s): bilateral: Normal Inspection Nose: Normal Oral Mucosa: Moist Neck: Normal ROM Cardiovascular: Rhythm Regular, No Murmur Respiratory: No Accessory Muscle Use Gastrointestinal/Abdominal: Bowel Sounds (active), Soft, Tenderness (diffuse, mild), No Guarding, No Rebound, No Hernia Back: Normal Inspection, No CVA Tenderness Extremity: Normal ROM, No Swelling Neurological/Psych: Oriented x3, Normal Speech, Normal Motor, Normal Sensation Gait: Steady ED Course And Treatment - Laboratory Results Result Diagrams: 03/16/17 11:10 03/16/17 11:10 ECG: Interpreted By Me, Viewed By Me ECG Rhythm: V Paced Rate From EC O2 Sat by Pulse Oximetry: 96 (on RA) Pulse Ox Interpretation: Normal Medical Decision Making Medical Decision Making: Notes and records reviewed. Patient seen in ER on 01/11/17 for abdominal cullen, patient diagnosed with diverticulitis and constipation. CT scan shows ? diverticuolsis vs possible diverticulitis. The case was discussed with Dr. Rizo (covering for [facility]) who agrees to admit the patient for possible diverticulitis, weakness, and chest pain. Disposition - Disposition Disposition: HOME/ ROUTINE Disposition Time: 15:00 Condition: FAIR - Clinical Impression Clinical Impression: Abdominal discomfort, Nausea, Chest pain - Scribe Statement The provider has reviewed the documentation as recorded by the Scribe (Haroldo Martinez) All medical record entries made by the Scribe were at my direction and personally dictated by me. I have reviewed the chart and agree that the record accurately reflects my personal performance of the history, physical exam, medical decision making, and the department course for this patient. I have also personally directed, reviewed, and agree with the discharge instructions and disposition.
[2017-03-16 11:22] LABS: CHLORIDE 100 mmol/L (98-107)
[2017-03-16 11:23] LABS: POTASSIUM 4.4 mmol/L (3.6-5.2); SODIUM 138 mmol/L (132-148)
[2017-03-16 11:25] LABS: ALB/GLOB RATIO 1.3 (1.0-2.1); AST/SGOT 23 U/L (17-59); BASO % 0.9 % (0.0-2.0); BILIRUBIN,TOTAL 0.6 mg/dL (0.2-1.3); BLOOD UREA NITROGEN 19 mg/dL (9-20); CARBON DIOXIDE 24 mmol/L (22-30); EOS # 0.3 K/uL (0.0-0.7); EOS % 5.8 % (0.0-4.0); GFR AFRICAN-AMERICAN 54; HEMATOCRIT 35.8 % (35.0-51.0); LYMPH # 1.4 K/uL (1.0-4.3); LYMPH % 27.8 % (20.0-40.0); MEAN CELL VOLUME 90.2 fL (80.0-94.0); MEAN CORPUSCULAR HEMOGLOBIN 30.8 pg (27.0-31.0); MEAN CORPUSCULAR HGB CONC 34.2 g/dL (33.0-37.0); MEAN PLATELET VOLUME 8.8 fL (7.2-11.7); MONO # 0.5 K/uL (0.0-0.8); RED CELL DISTRIBUTION WIDTH 14.1 % (11.5-14.5); TOTAL PROTEIN 7.1 g/dL (6.3-8.3); WHITE BLOOD COUNT 5.1 K/uL (4.8-10.8)
[2017-03-16 11:26] LABS: ALKALINE PHOSPHATASE 53 U/L (38-126); ALT/SGPT 28 U/L (21-72); CALCIUM 8.7 mg/dl (8.6-10.4); GLUCOSE,RANDOM 211 mg/dL (75-110)
[2017-03-16] MEDS ORDERED: Aspirin 325 mg EC Tablets PO STA (12:55)
[2017-03-16 14:21] VITALS: RESP 20
--- NOTE | 2017-03-16 14:35 | CT ---
PROCEDURE: CT abdomen and pelvis dated 03/16/2017 HISTORY: Diffuse abdominal pain, nausea ; s/p colonoscopy 1 wk ago COMPARISON: Comparison made with prior study 01/11/2017 TECHNIQUE: Contiguous axial images of the abdomen and pelvis performed without oral or intravenous contrast material. . Coronal and Sagittal reformats generated. Radiation dose: Total exam DLP = 597.77 mGy-cm. This CT exam was performed using one or more of the following dose reduction techniques: Automated exposure control, adjustment of the mA and/or kV according to patient size, and/or use of iterative reconstruction technique. FINDINGS: LOWER THORAX: Mild bibasilar atelectasis. Additionally, there are small calcified plaque changes along both hemidiaphragms unchanged from prior exam. No effusion or basilar pneumothorax. Heart appears mildly enlarged. . Questionable minimal pericardial thickening versus tiny pericardial effusion. . Small hiatal hernia. LIVER: Liver exhibits normal size measuring approximately 16.4 cm in CC dimension. No obvious hepatic mass collection or calcification GALLBLADDER AND BILE DUCTS: Re- demonstrated are changes of cholecystectomy. PANCREAS: Pancreas is slightly atrophic and fatty replaced unchanged from prior exam. SPLEEN: Spleen exhibits normal size and attenuation pattern without mass collection or calcification. ADRENALS: The no adrenal lesions. KIDNEYS AND URETERS: The kidneys demonstrate symmetric size. No evidence of nephrolithiasis or hydronephrosis. Some vague infiltration changes seen in the perinephric fat bilaterally left greater than right. BLADDER: Urinary bladder is physiologically distended. No evidence of intraluminal urinary bladder calculi. The curvilinear area of increased attenuation along the posterior inferior margin of the urinary bladder in part likely due to encroachment of enlarged prostate gland however the possibility of an intrinsic/invasive bladder wall lesion cannot be excluded. Correlate clinically. REPRODUCTIVE: Enlarged prostate gland which contains multiple tiny calcifications. Findings likely due to BPH however correlation with PSA recommended to exclude prostate malignancy. APPENDIX: Normal appendix BOWEL: Evaluation of the bowel is limited due to the lack of oral contrast material. Stomach is distended with liquid food debris and air. Visualized loops of small bowel exhibit normal contour and caliber. No evidence of acute mechanical small bowel obstruction. Multiple colonic diverticula again seen along the descending and sigmoid colon. There is localized wall thickening of a short segment of the sigmoid colon which may in part be due to a combination of peristalsis, and adherent under opacified bowel however the possibility of a localized diverticulitis core not excluded. Clinical correlation recommended. No obvious inflammatory changes seen in the adjacent mesentery. . There is also a moderate amount of stool seen within the cecum and at ascending as well as transverse colon suggesting mild fecal retention/constipation. PERITONEUM: Unremarkable. No fluid collection. No free air. Small fat containing umbilical hernia LYMPH NODES: No significant lymphadenopathy. VASCULATURE: Unremarkable. No aortic aneurysm. BONES: Mild to moderate degenerative spondylosis of the lumbar and to a lesser degree lower thoracic spine. OTHER FINDINGS: None. IMPRESSION: Extensive colonic diverticulosis predominately involving the descending and sigmoid colon. Localize wall thickening short segment of the sigmoid colon which may in part be due to incomplete distention and under opacified adherent stool however the possibility of a localized diverticulitis not excluded despite the lack of surrounding infiltration changes the adjacent mesentery. No evidence of free intraperitoneal air or fluid. Cholecystectomy. See above discussion for additional details findings and recommendations.
[2017-03-16] MEDS ORDERED: Ciprofloxacin 400mg/200ml D5W 400 MG/200 ML BAG IV STA (17:17)
--- NOTE | 2017-03-16 17:24 | RAD ---
PROCEDURE: CHEST RADIOGRAPH, 1 VIEW HISTORY: chest pain COMPARISON: Comparison chest dated 10/04/2012 FINDINGS: LUNGS: Poor inspiration with low lung volumes, crowded bronchovascular markings and mild bibasilar atelectasis. PLEURA: No pneumothorax or pleural fluid seen. CARDIOVASCULAR: No change bipolar pacemaker. Cardiomegaly. Aorta is slightly ectatic and uncoiled. OSSEOUS STRUCTURES: No significant abnormalities. VISUALIZED UPPER ABDOMEN: Normal. OTHER FINDINGS: None. IMPRESSION: Poor inspiration with low lung volumes, crowded bronchovascular markings and mild bibasilar atelectasis. Cardiomegaly.
[2017-03-16] MEDS ORDERED: Ciprofloxacin 400mg/200ml D5W 400 MG/200 ML BAG IVPB ONE (17:37)
[2017-03-16] MEDS: metroNIDAZOLE IV 500 mg/100 ml 500 MG/100 ML BAG IV STA ×2 (19:30→21:43)
[2017-03-17] MEDS ORDERED: GlipiZIDE 2.5 mg Tab PO SCH (07:30)
[2017-03-17 08:03] LABS: HEMATOCRIT 38.6 % (35.0-51.0); MEAN CELL VOLUME 89.4 fL (80.0-94.0); MEAN CORPUSCULAR HEMOGLOBIN 30.9 pg (27.0-31.0); MEAN CORPUSCULAR HGB CONC 34.6 g/dL (33.0-37.0); MEAN PLATELET VOLUME 8.7 fL (7.2-11.7); RED CELL DISTRIBUTION WIDTH 13.8 % (11.5-14.5)
[2017-03-17 08:35] LABS: POTASSIUM 4.2 mmol/L (3.6-5.2)
[2017-03-17 08:38] LABS: CALCIUM 8.9 mg/dl (8.6-10.4)
[2017-03-17 08:41] VITALS: TEMP 97.4
[2017-03-17] MEDS ORDERED: Pantoprazole 40 mg EC Tab PO SCH (10:00)
[2017-03-17 10:11] VITALS: PULSE 63; O2SAT 95
[2017-03-17] MEDS ORDERED: Influenza Virus Vaccine 45 mcg/0.5 ml Syr (36 months - 7 yrs) IM ONE (12:22)
[2017-03-17] MEDS ORDERED: Pneumococcal 23-Valent Vaccine IM ONE (12:23)
[2017-03-17] MEDS ORDERED: Influenza Vaccine 60 mcg/0.5 mL SYR (4YR UP) IM ONE (12:32)
--- NOTE | 2017-03-17 13:04 | CP.PCM.PN ---
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 ENRIQUEZ THIS MORNING. PT CLEARED FOR D/ C IF TNI IS NEG. ALL LABS REVIEWED AND CARDIAC ENZYMES ARE ALL NEG. PT CURRENTLY ADMITS TO MILD/VAGUE ABD DISCOMFORT. DENIES CP, SOB, NAUSEA, VOMITING , DYSURIA, DIARRHEA. EXAM UNREMARKABLE EXCEPT MILD TENDERNESS TO LLQ, NO DISTENTION NOTED, + NORMAL BS. TO BE D/C HOME TODAY AND CONTINUE DAILY ADULT DAY CARE SERVICES. CONTINUE ALL HOME MEDS USUAL. NEW RX TO BE GIVEN CIPRO AND FLAGYL PO X7 DAYS. PT WAITING FOR TRANSPORTATION HOME. WILL F/U WITH DR. ALVARADO OR DR. HARTMANN IN THE OFFICE WITHIN 1 WEEK. ALREADY HAS APPT TO F/U WITH HIS OWN GI MD ON 03/21/17 TO DISCUSS RECENT COLONSCOPY RESULTS. NO FURTHER ORDERS. Objective - Vital Signs/Intake and Output Vital Signs (last 24 hours): Temp Pulse Resp BP Pulse Ox 97.4 F L 63 20 175/79 H 95 03/17/17 08:00 03/17/17 10:10 03/17/17 08:00 03/17/17 10:10 03/17/17 10:10 - Medications Medications: Current Medications Amlodipine Besylate (Norvasc) 10 mg PO DAILY [facility] Clopidogrel Bisulfate (Plavix) 75 mg PO DAILY [facility] Last Admin: 03/17/17 10:07 Dose: 75 mg Glipizide (Glucotrol) 2.5 mg PO ACB [facility] Last Admin: 03/17/17 08:00 Dose: 2.5 mg Hydrochlorothiazide (Hydrodiuril) 25 mg PO DAILY [facility] Pantoprazole Sodium (Protonix Ec Tab) 40 mg PO DAILY [facility] Last Admin: 03/17/17 10:07 Dose: 40 mg Tamsulosin HCl (Flomax) 0.4 mg PO DAILY [facility] Last Admin: 03/17/17 10:07 Dose: 0.4 mg - Labs Labs: 03/17/17 07:54 03/17/17 07:54
[2017-03-17 14:58] VITALS: BP 167/82
[2017-03-18] MEDS ORDERED: Pneumococcal 23-Valent Vaccine IM ONE (10:00)
[2017-03-18] MEDS ORDERED: Influenza Vaccine 60 mcg/0.5 mL SYR (4YR UP) IM ONE (12:32)
--- NOTE | 2017-03-18 18:13 | CARD ---
APPROVED REPORT EKG Measurement Heart [id number] <Conclusion> Ventricular-paced rhythm Abnormal ECG
--- NOTE | 2017-03-31 19:25 | CP.PCM.HP ---
History of Present Illness - History of Present Illness History of Present Illness: Chief complaint: weakness, abdominal pain History present illness: 87-year-old male with history of hypertension diabetes diverticulosis recently had a colonoscopy, also had a history of acute diverticulitis in the past. patient was feeling because, tiredness. He was not able to eat. He was feeling near syncope. He was also having some because in the left upper extremity, pain and chest discomfort noted. Patient came to the margins from because of the chest discomfort Past medical history: Hypertension diabetes diverticulosis pacemaker Allergy: No known drug allergy Personal history: nonsmoking nonalcoholic lives with family members. No significant family history Review of system: Currently having no headache, but in consistent with weakness tiredness and easy fatigability. Unstable walking, and also falls. Patient has a pacemaker Vital signs reviewed No neck vein distention noted Chest good air entry bilaterally, no wheezing or rales noted CVS regular heart sound, no murmur noted Abdomen soft, nontender. 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 Flapping tremor also noted occasionally. 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 Abdominal pain, nonspecific, possible diverticulosis. Chest pain rule outcardiac cause Antibiotic. IV fluid. monitor CPK, troponin Present on Admission - Present on Admission Any Indicators Present on Admission: No History of DVT/PE: No History of Uncontrolled Diabetes: No Urinary Catheter: No Decubitus Ulcer Present: No Past Patient History - Infectious Disease Hx of Infectious Diseases: None - Past Medical History & Family History Past Medical History?: Yes - Past Social History Smoking Status: Never Smoked - CARDIAC Hx Cardiac Disorders: Yes (pace maker) Hx Hypertension: Yes - PULMONARY Hx Respiratory Disorders: No - NEUROLOGICAL Hx Neurological Disorder: No - HEENT Hx HEENT Problems: No - RENAL Hx Chronic Kidney Disease: No - ENDOCRINE/METABOLIC Hx Diabetes Mellitus Type 2: Yes - HEMATOLOGICAL/ONCOLOGICAL Hx Human Immunodeficiency Virus (HIV): No - INTEGUMENTARY Hx Dermatological Problems: No - MUSCULOSKELETAL/RHEUMATOLOGICAL Hx Arthritis: Yes (l knee) - GASTROINTESTINAL Hx Crohn's Disease: No Hx Diverticulitis: Yes Hx Gall Bladder Disease: No Hx Gastritis: No Hx Pancreatitis: No - GENITOURINARY/GYNECOLOGICAL Hx Genitourinary Disorders: No - PSYCHIATRIC Hx Substance Use: No - SURGICAL HISTORY Hx Cholecystectomy: Yes Other/Comment: colonoscopy (11/30/14). endoscopic polypectomy of large intestine (03/13/07) - ANESTHESIA Hx Anesthesia: Yes Hx Anesthesia Reactions: No Hx Malignant Hyperthermia: No Meds Home Medications: Home Medication List Medication Instructions Recorded Confirmed Type Ciprofloxacin [Cipro] 250 mg PO Q12 #14 tab 03/17/17 Rx metroNIDAZOLE [Flagyl] 250 mg PO TID #21 tab 03/17/17 Rx Allergies/Adverse Reactions: Allergies Allergy/AdvReac Type Severity Reaction Status Date / Time No Known Allergies Allergy Verified 01/11/17 11:28 Results - Vital Signs Recent Vital Signs: Last Vital Signs Temp 97.4 F L 03/17/17 08:00 Pulse 63 03/17/17 10:10 Resp 20 03/17/17 08:00 BP 167/82 H 03/17/17 14:58 Pulse Ox 95 03/17/17 10:10 - Labs Result Diagrams: 03/17/17 07:54 03/17/17 07:54
--- NOTE | 2017-03-31 19:28 | CP.PCM.DIS ---
Provider - Provider Date of Admission: 03/16/17 15:19 Attending physician: Todd Rizo MD Time Spent in preparation of Discharge (in minutes): 45 Hospital Course - Lab Results Lab Results: Most Recent Lab Values WBC 6.0 K/uL (4.8-10.8) 03/17/17 07:54 RBC 4.32 Mil/uL (4.40-5.90) L 03/17/17 07:54 Hgb 13.3 g/dL (12.0-18.0) 03/17/17 07:54 Hct 38.6 % (35.0-51.0) 03/17/17 07:54 MCV 89.4 fL (80.0-94.0) 03/17/17 07:54 MCH 30.9 pg (27.0-31.0) 03/17/17 07:54 MCHC 34.6 g/dL (33.0-37.0) 03/17/17 07:54 RDW 13.8 % (11.5-14.5) 03/17/17 07:54 Plt Count 189 K/uL (130-400) 03/17/17 07:54 MPV 8.7 fL (7.2-11.7) 03/17/17 07:54 Neut % (Auto) 55.5 % (50.0-75.0) 03/16/17 11:10 Lymph % (Auto) 27.8 % (20.0-40.0) 03/16/17 11:10 [place] % (Auto) 10.0 % (0.0-10.0) 03/16/17 11:10 Eos % (Auto) 5.8 % (0.0-4.0) H 03/16/17 11:10 Baso % (Auto) 0.9 % (0.0-2.0) 03/16/17 11:10 Neut # 2.8 K/uL (1.8-7.0) 03/16/17 11:10 Lymph # 1.4 K/uL (1.0-4.3) 03/16/17 11:10 [place] # 0.5 K/uL (0.0-0.8) 03/16/17 11:10 Eos # 0.3 K/uL (0.0-0.7) 03/16/17 11:10 Baso # 0.0 K/uL (0.0-0.2) 03/16/17 11:10 Sodium 142 mmol/L (132-148) 03/17/17 07:54 Potassium 4.2 mmol/L (3.6-5.2) 03/17/17 07:54 Chloride 100 mmol/L (98-107) 03/17/17 07:54 Carbon Dioxide 26 mmol/L (22-30) 03/17/17 07:54 Anion Gap 20 (10-20) 03/17/17 07:54 BUN 19 mg/dL (9-20) 03/17/17 07:54 Creatinine 1.6 MG/DL (0.8-1.5) H 03/17/17 07:54 Est GFR ( Amer) 50 03/17/17 07:54 Est GFR (Non-Af Amer) 41 03/17/17 07:54 POC Glucose (mg/dL) 134 mg/dL (65-110) H 03/17/17 12:00 Random Glucose 82 mg/dL (75-110) 03/17/17 07:54 Lactic Acid 1.3 mmol/L (0.7-2.1) 03/16/17 12:01 Calcium 8.9 mg/dl (8.6-10.4) 03/17/17 07:54 Total Bilirubin 0.6 mg/dL (0.2-1.3) 03/16/17 11:10 AST 23 U/L (17-59) 03/16/17 11:10 ALT 28 U/L (21-72) 03/16/17 11:10 Alkaline Phosphatase 53 U/L (38-126) 03/16/17 11:10 Total Creatine Kinase 181 U/L (55-170) H 03/17/17 07:54 CK-MB (Mass) 2.64 ng/mL (0.0-3.38) 03/17/17 07:54 Troponin I < 0.0120 ng/mL (0.00-0.120) 03/16/17 11:10 Troponin I, Quant 0.0130 ng/mL (0.00-0.120) 03/17/17 07:54 NT-Pro-B Natriuret Pep 310 pg/mL (0-900) 03/16/17 11:10 Total Protein 7.1 g/dL (6.3-8.3) 03/16/17 11:10 Albumin 3.9 g/dL (3.5-5.0) 03/16/17 11:10 Globulin 3.1 gm/dL (2.2-3.9) 03/16/17 11:10 Albumin/Globulin Ratio 1.3 (1.0-2.1) 03/16/17 11:10 - Hospital Course Hospital Course: Chief complaint: weakness, abdominal pain History present illness: 87-year-old male with history of hypertension diabetes diverticulosis recently had a colonoscopy, also had a history of acute diverticulitis in the past. patient was feeling because, tiredness. He was not able to eat. He was feeling near syncope. He was also having some because in the left upper extremity, pain and chest discomfort noted. Patient came to the margins from because of the chest discomfort Past medical history: Hypertension diabetes diverticulosis pacemaker Allergy: No known drug allergy Personal history: nonsmoking nonalcoholic lives with family members. No significant family history Review of system: Currently having no headache, but in consistent with weakness tiredness and easy fatigability. Unstable walking, and also falls. Patient has a pacemaker Vital signs reviewed No neck vein distention noted Chest good air entry bilaterally, no wheezing or rales noted CVS regular heart sound, no murmur noted Abdomen soft, nontender. 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 Flapping tremor also noted occasionally. 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 Abdominal pain, nonspecific, possible diverticulosis. Chest pain rule outcardiac cause Antibiotic. IV fluid. monitor CPK, troponin troponin, CPKs normal. clinically stable he will continue by mouth antibiotic follow-up as an outpatient. he will be discharged home. Discharge Plan - Discharge Medications Prescriptions: Ciprofloxacin [Cipro] 250 mg PO Q12 #14 tab metroNIDAZOLE [Flagyl] 250 mg PO TID #21 tab - Follow Up Plan Condition: FAIR Disposition: HOME/ ROUTINE Instructions: Ciprofloxacin (By mouth), Hydrochlorothiazide (By mouth), Metronidazole (By mouth), Amlodipine (By mouth), Chest Pain (DC), Diverticulitis (DC), Heart Healthy Diet (DC), Chronic Hypertension (DC), Low Sodium Diet (DC) Additional Instructions: FOLLOW UP WITH DR. CARRANZA OR DR. RIZO IN THE OFFICE WITHIN 1 WEEK---CALL FOR APPT TIME. CONTINUE TAKING YOUR HOME MEDICATIONS USUAL. NEW PRESCRIPTIONS INCLUDE: CIPRO 250 MG BY MOUTH TWICE A DAY; FLAGYL 250 MG BY MOUTH 3 TIMES A DAY. TAKE BOTH ANTIBIOTICS FOR 1 WEEK. YOU MAY RETURN TO YOUR ADULT DAY CARE TOMORROW. IF YOU HAVE ANY FURTHER QUESTIONS PLEASE CONTACT YOUR DOCTOR. Referrals: Jerel Carranza [Staff Provider] - 1 Week Todd Rizo MD [Staff Provider] - 1 Week
== END 2017-03-17 17:24 | disposition home or self-care (01) ==
LOC: C.ER 10:19 → C.9E 15:19 → C.5S 18:27
PROVIDERS: ADMIT Internal Medicine; ATTEND Internal Medicine
DX: R10.9 Unspecified abdominal pain (principal); R11.0 Nausea; R07.89 Other chest pain; I10 Essential (primary) hypertension
CPT/HCPCS: 36415; 71010; 74176; 80048; 80053; 82948; 83605; 83880; 84484; 85025; 85027; 93005; 96360; 97162; 97530; 99285; G0378; G8978; G8979; J0744

== ENCOUNTER 2017-04-27 11:35 | Inpatient (IN) | payer MEDICARE, MEDICAID ==
[2017-04-27 11:35] VITALS: BMI 29.6
--- NOTE | 2017-04-27 12:15 | C.PDOC ---
History Of Present Illness 87-year-old male, PMHx includes Hypertension, Diabetes, s/p Pacemaker and Diverticulosis, presents to the emergency department with complaints of dizziness, abdominal pain, for the past three days. Pain is diffuse, but worse in epigastrium. Patient denies fevers, cough, nausea/vomiting, fevers, chills, chest pain, or any other associated symptoms. No other complaints at this time. Time Seen by Provider: 04/27/17 12:01 Chief Complaint (Nursing): Abdominal Pain History Per: Patient History/Exam Limitations: no limitations Onset/Duration Of Symptoms: Days Current Symptoms Are (Timing): Still Present Severity: Moderate Location Of Pain/Discomfort: Diffuse, Epigastric, LLQ Past Medical History Reviewed: Historical Data, Nursing Documentation, Vital Signs Vital Signs: Last Vital Signs Temp 98.2 F 04/27/17 14:37 Pulse 75 04/27/17 14:37 Resp 18 04/27/17 14:37 BP 115/71 04/27/17 14:37 Pulse Ox 94 L 04/27/17 14:37 - Medical History PMH: Anemia, Arthritis (l knee), Diverticulitis, HTN Surgical History: Cholecystectomy, Pacemaker - [facility] Procedures COLONOSCOPY (11/30/14) ENDOSC POLYPECTOMY OF LG INTEST (03/13/07) Family History: States: No Known Family Hx - Social History Hx Alcohol Use: No Hx Substance Use: No - Immunization History Hx Tetanus Toxoid Vaccination: No Hx Influenza Vaccination: Yes Hx Pneumococcal Vaccination: Yes Review Of Systems Except As Marked, All Systems Reviewed And Found Negative. Constitutional: Negative for: Fever, Chills Cardiovascular: Negative for: Chest Pain, Palpitations Respiratory: Positive for: Shortness of Breath Gastrointestinal: Positive for: Abdominal Pain Musculoskeletal: Negative for: Back Pain Neurological: Positive for: Dizziness. Negative for: Weakness, Numbness, Headache Physical Exam - Physical Exam Appears: Non-toxic, No Acute Distress Skin: Warm, Dry, No Rash Head: Atraumatic, Normacephalic Eye(s): bilateral: Normal Inspection, PERRL, EOMI Nose: Normal Oral Mucosa: Moist Lips: Normal Appearing Neck: Normal ROM Chest: Symmetrical Cardiovascular: Rhythm Regular, No Murmur Respiratory: Normal Breath Sounds, No Accessory Muscle Use Gastrointestinal/Abdominal: Soft, Tenderness (mild, epigastric and LLQ.), No Guarding, No Rebound Extremity: Normal ROM Neurological/Psych: Oriented x3, Normal Speech ED Course And Treatment - Laboratory Results Result Diagrams: 04/27/17 12:11 04/27/17 12:11 ECG: Interpreted By Me, Viewed By Me ECG Rhythm: Sinus Rhythm ECG Interpretation: No Acute Changes Rate From EC O2 Sat by Pulse Oximetry: 100 Pulse Ox Interpretation: Normal Medical Decision Making Medical Decision Making: f/o colitis divericulitis, pna - labs imaging pending 315: pt reassesed: pt lives byhimself. difficulty managing at home. ct shows early diverticulitis, multiple comorbiites, accepted by dr wright for admission Disposition - Disposition Disposition: HOSPITALIZED Disposition Time: 15:15 Condition: STABLE Forms: [facility] (Bermudian) - Clinical Impression Clinical Impression: Diverticulitis, Dizziness - Scribe Statement The provider has reviewed the documentation as recorded by the Scribe (Haroldo Martinez) All medical record entries made by the Scribe were at my direction and personally dictated by me. I have reviewed the chart and agree that the record accurately reflects my personal performance of the history, physical exam, medical decision making, and the department course for this patient. I have also personally directed, reviewed, and agree with the discharge instructions and disposition.
[2017-04-27 12:23] LABS: BASO # 0.1 K/uL (0.0-0.2); BASO % 1.1 % (0.0-2.0); EOS # 0.2 K/uL (0.0-0.7); EOS % 4.2 % (0.0-4.0); HEMATOCRIT 36.3 % (35.0-51.0); LYMPH # 1.8 K/uL (1.0-4.3); LYMPH % 32.4 % (20.0-40.0); MEAN CELL VOLUME 91.1 fL (80.0-94.0); MEAN CORPUSCULAR HEMOGLOBIN 31.1 pg (27.0-31.0); MEAN CORPUSCULAR HGB CONC 34.1 g/dL (33.0-37.0); MEAN PLATELET VOLUME 8.8 fL (7.2-11.7); MONO # 0.6 K/uL (0.0-0.8); MONO % 11.4 % (0.0-10.0); RED CELL DISTRIBUTION WIDTH 14.2 % (11.5-14.5); WHITE BLOOD COUNT 5.4 K/uL (4.8-10.8)
[2017-04-27 12:30] LABS: POTASSIUM 4.6 mmol/L (3.6-5.2)
[2017-04-27 12:32] LABS: ALB/GLOB RATIO 1.4 (1.0-2.1); INR 1.1; TOTAL PROTEIN 6.9 g/dL (6.3-8.3)
[2017-04-27 12:33] LABS: CALCIUM 8.3 mg/dl (8.6-10.4)
[2017-04-27 12:44] LABS: TROPONIN I 0.012 ng/mL (0.00-0.120)
--- NOTE | 2017-04-27 12:45 | RAD ---
PROCEDURE: CHEST RADIOGRAPH, 1 VIEW HISTORY: Chest pain COMPARISON: None available. FINDINGS: LUNGS: There are low lung volumes. No focal consolidation. PLEURA: No pneumothorax or pleural fluid seen. CARDIOVASCULAR: The heart remains enlarged. There is a left-sided dual lead transvenous permanent pacing device. OSSEOUS STRUCTURES: No significant abnormalities. VISUALIZED UPPER ABDOMEN: Normal. OTHER FINDINGS: None. IMPRESSION: Low lung volumes may be related to poor inspiratory effort. No acute findings. Persistent cardiomegaly.
[2017-04-27 13:41] LABS: RBC URINE 1 /hpf (0-3); URINE BACTERIA RARE (<OCC); URINE BILIRUBIN NEGATIVE (NEGATIVE); URINE BLOOD NEGATIVE (NEGATIVE); URINE COLOR Yellow (YELLOW); URINE GLUCOSE (UA) NORMAL (Normal); URINE KETONE NEGATIVE (NEGATIVE); URINE LEUKOCYTE ESTERASE NEG Leu/uL (Negative); URINE PROTEIN NEGATIVE (NEGATIVE); URINE UROBILINOGEN NORMAL mg/dL (0.2-1.0); WBC URINE < 1 /hpf (0-5)
--- NOTE | 2017-04-27 15:08 | CT ---
PROCEDURE: CT Abdomen and Pelvis without intravenous contrast HISTORY: Abdominal pain h/o of diverticulitis COMPARISON: 03/16/2017. TECHNIQUE: CT scan of the abdomen and pelvis was performed without administration of intravenous contrast. Oral contrast was not administered. Coronal and sagittal reformatted images were obtained. Radiation dose: Total exam DLP = 527.66 mGy-cm. This CT exam was performed using one or more of the following dose reduction techniques: Automated exposure control, adjustment of the mA and/or kV according to patient size, and/or use of iterative reconstruction technique. FINDINGS: LOWER THORAX: There is dependent atelectasis in the lung bases. There are bilateral calcified pleural plaques, more extensive on the left. LIVER: Normal in size. No gross lesion or ductal dilatation. GALLBLADDER AND BILE DUCTS: Surgically absent. PANCREAS: The pancreas is normal in size. No ductal dilatation or calcifications. SPLEEN: Normal in size. ADRENALS: No discrete nodule. KIDNEYS AND URETERS: Both kidneys are normal in size. No hydronephrosis. No solid mass. VASCULATURE: No aortic aneurysm. BOWEL: The small bowel loops are normal in caliber. There is extensive left colonic diverticulosis. There is apparent mild mural thickening of the distal descending and sigmoid colon. No bowel dilatation or obstruction. APPENDIX: Normal appendix. PERITONEUM: No free fluid. No free air. LYMPH NODES: No enlarged lymph nodes. BLADDER: Partially decompressed. REPRODUCTIVE: There is mild enlargement of the prostate gland with posterior coarse calcifications. BONES: No acute fracture. OTHER FINDINGS: There are bilateral small fat containing inguinal hernias. IMPRESSION: Evaluation of the bowel is limited in the absence of oral contrast. Allowing for this apparent mild mural thickening of the distal descending and sigmoid colon could be related to underdistention however early diverticulitis cannot be excluded. Clinical correlation and follow-up is advised. 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
[2017-04-27] MEDS ORDERED: Piperacillin/Tazobact 3.375 gm 100 ML IVPB STA (15:10)
[2017-04-27] MEDS ORDERED: Piperacillin/Tazobact 3.375 gm 100 ML IVPB ONE (15:21)
--- NOTE | 2017-04-27 18:52 | CP.PCM.HP ---
History of Present Illness - History of Present Illness History of Present Illness: Chief complaint: Weakness abdominal pain History present illness: 87-year-old male with history of hypertension diabetes diverticulosis recently was hospitalized with acute diverticulitis,came to the office with abdominal pain and dizziness.pain diffuse and more over epigastric area and LLQ area note. no vomiting or no nause. constipation noted. According to the patient's family he is having unstable gait, and walking is somewhat disturbed, unable to stand up by himself, he needs assistance also. He is also having significant shaking. Recently he also started having increasing pain over the left upper quadrant, associated with the episodes of diarrhea, sometimes nausea. No fever noted, denies any chills. Shaking noted. Past medical history: Hypertension diabetes diverticulosis pacemaker Allergy: No known drug allergy Personal history: Not spoken nonalcoholic lives with family members. No significant family history Review of system: Currently having no headache, but in consistent with weakness tiredness and easy fatigability. Unstable walking, and also falls. Patient has a pacemaker Vital signs reviewed No neck vein distention noted Chest good air entry bilaterally, no wheezing or rales noted CVS regular heart sound, no murmur noted Abdomen soft, nontender. 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 Flapping tremor also noted occasionally. Labs reviewed Elevated creatinine level noted. 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 Possible diverticulitis cannot be ruled out, dehydration, will continue the IV fluid, and intravenous Flagyl. Antibiotic. IV fluid. Monitor the fluid status. And will follow the patient Past Patient History - Infectious Disease Hx of Infectious Diseases: None - Past Medical History & Family History Past Medical History?: Yes - Past Social History Smoking Status: Never Smoked - CARDIAC Hx Hypertension: Yes Hx Pacemaker: Yes - PULMONARY Hx Respiratory Disorders: No - NEUROLOGICAL Hx Neurological Disorder: No - HEENT Hx HEENT Problems: No - RENAL Hx Chronic Kidney Disease: No - ENDOCRINE/METABOLIC Hx Diabetes Mellitus Type 2: Yes - HEMATOLOGICAL/ONCOLOGICAL Hx Anemia: Yes - INTEGUMENTARY Hx Dermatological Problems: No - MUSCULOSKELETAL/RHEUMATOLOGICAL Hx Arthritis: Yes (l knee) - GASTROINTESTINAL Hx Diverticulitis: Yes - GENITOURINARY/GYNECOLOGICAL Hx Genitourinary Disorders: No - PSYCHIATRIC Hx Substance Use: No - SURGICAL HISTORY Hx Cholecystectomy: Yes - ANESTHESIA Hx Anesthesia: Yes Hx Anesthesia Reactions: No Hx Malignant Hyperthermia: No Meds Allergies/Adverse Reactions: Allergies Allergy/AdvReac Type Severity Reaction Status Date / Time No Known Allergies Allergy Verified 01/11/17 11:28 Results - Vital Signs Recent Vital Signs: Last Vital Signs Temp 98.3 F 04/27/17 17:16 Pulse 62 04/27/17 17:16 Resp 18 04/27/17 17:16 BP 143/86 04/27/17 17:48 Pulse Ox 95 04/27/17 17:16 - Labs Result Diagrams: 04/27/17 12:11 04/27/17 12:11 Labs: Laboratory Results - last 24 hr 04/27/17 04/27/17 04/27/17 12:11 12:11 12:11 WBC 5.4 RBC 3.99 L Hgb 12.4 Hct 36.3 MCV 91.1 MCH 31.1 H MCHC 34.1 RDW 14.2 Plt Count 188 MPV 8.8 Neut % (Auto) 50.9 Lymph % (Auto) 32.4 [place] % (Auto) 11.4 H Eos % (Auto) 4.2 H Baso % (Auto) 1.1 Neut # 2.8 Lymph # 1.8 [place] # 0.6 Eos # 0.2 Baso # 0.1 PT 13.0 H INR 1.1 APTT 28 Sodium 134 Potassium 4.6 Chloride 101 Carbon Dioxide 23 Anion Gap 14 BUN 27 H Creatinine 1.8 H Est GFR ( Amer) 44 Est GFR (Non-Af Amer) 36 Random Glucose 181 H Calcium 8.3 L Total Bilirubin 1.0 AST 25 ALT 33 Alkaline Phosphatase 52 Troponin I 0.0120 NT-Pro-B Natriuret Pep 389 Total Protein 6.9 Albumin 4.0 Globulin 2.9 Albumin/Globulin Ratio 1.4 Lipase 38 Urine Color Urine Clarity Urine pH Ur Specific [place] Urine Protein Urine Glucose (UA) Urine Ketones Urine Blood Urine Nitrate Urine Bilirubin Urine Urobilinogen Ur Leukocyte Esterase Urine WBC (Auto) Urine RBC (Auto) Urine Bacteria 04/27/17 13:24 WBC RBC Hgb Hct MCV MCH MCHC RDW Plt Count MPV Neut % (Auto) Lymph % (Auto) [place] % (Auto) Eos % (Auto) Baso % (Auto) Neut # Lymph # [place] # Eos # Baso # PT INR APTT Sodium Potassium Chloride Carbon Dioxide Anion Gap BUN Creatinine Est GFR ( Amer) Est GFR (Non-Af Amer) Random Glucose Calcium Total Bilirubin AST ALT Alkaline Phosphatase Troponin I NT-Pro-B Natriuret Pep Total Protein Albumin Globulin Albumin/Globulin Ratio Lipase Urine Color Yellow Urine Clarity Clear Urine pH 6.0 Ur Specific [place] 1.017 Urine Protein Negative Urine Glucose (UA) Normal Urine Ketones Negative Urine Blood Negative Urine Nitrate Negative Urine Bilirubin Negative Urine Urobilinogen Normal Ur Leukocyte Esterase Neg Urine WBC (Auto) < 1 Urine RBC (Auto) 1 Urine Bacteria Rare
[2017-04-27] MEDS: Sodium Chloride 0.45% 1,000 ML IV SCH (19:30)
[2017-04-27] MEDS: Ciprofloxacin 200mg/100ml D5W 100 ML IVPB SCH (20:00)
[2017-04-27] MEDS: metroNIDAZOLE IV 250mg/50 ml 250 MG/50 ML BAG IVPB SCH (21:50)
[2017-04-28] MEDS: metroNIDAZOLE IV 250mg/50 ml 250 MG/50 ML BAG IVPB SCH ×3 (05:00→22:22)
[2017-04-28] MEDS: Ciprofloxacin 200mg/100ml D5W 100 ML IVPB SCH ×2 (06:00→19:00)
[2017-04-28 08:30] LABS: BILIRUBIN,TOTAL 1.2 mg/dL (0.2-1.3)
[2017-04-28 08:31] LABS: ALB/GLOB RATIO 1.3 (1.0-2.1); BASO # 0.1 K/uL (0.0-0.2); BASO % 1.3 % (0.0-2.0); CALCIUM 8.2 mg/dl (8.6-10.4); EOS # 0.3 K/uL (0.0-0.7); EOS % 5.1 % (0.0-4.0); HEMATOCRIT 38.3 % (35.0-51.0); LYMPH # 1.8 K/uL (1.0-4.3); LYMPH % 31.6 % (20.0-40.0); MEAN CELL VOLUME 90.6 fL (80.0-94.0); MEAN CORPUSCULAR HGB CONC 34.2 g/dL (33.0-37.0); MEAN PLATELET VOLUME 8.8 fL (7.2-11.7); MONO # 0.7 K/uL (0.0-0.8); MONO % 11.5 % (0.0-10.0); NRBC % 0.1 % (0.0-2.0); RED CELL DISTRIBUTION WIDTH 14.2 % (11.5-14.5); TOTAL PROTEIN 6.8 g/dL (6.3-8.3); WHITE BLOOD COUNT 5.7 K/uL (4.8-10.8)
[2017-04-28] MEDS: Lactobacillus Acidophilus 500 MU Cap PO SCH ×2 (11:00→17:24)
[2017-04-28] MEDS: Sodium Chloride 0.45% 1,000 ML IV SCH (14:17)
--- NOTE | 2017-04-28 16:00 | CP.PCM.PN ---
Subjective - Date & Time of Evaluation Date of Evaluation: 04/28/17 Time of Evaluation: 16:00 - Subjective Subjective: PT SEEN AT BEDSIDE WITH SON PRESENT. PT IS EAGER TO GO HOME AND REQUESTING A D/ C BY TOMORROW. STILL C/O MILD LEFT ABDOMINAL PAIN BUT STATES ITS "BETTER THAN BEFORE"; DENIES N/V, FEVER/CHILLS, DYSURIA, BLOOD IN STOOL. HAS BEEN SEEN BY HIS GI OUTPATIENT AND ADMITS TO RECENTLY HAVING UPPER AND LOWER ENDOSCOPY---HAS AN APPT ON 05/16/17 TO F/U WITH HIS GI FOR RESULTS OF ENDOSCOPY. ON EXAM: AAOX3, SPEECH CLEAR, JAPANESE SPEAKING; ABD SOFT, ND, + MILD TENDERNESS TO LLQ ON PALPATION. NO BLADDER DISTENTION. A/P: DIVERTICULITIS PER CT SCAN (SEE OFFICIAL REPORT) CONTINUE DIET ORDERED RE-EVAL PT IN THE AM AND POSS D/C PENDING SYMPTOMS AND CONTINUING TO TOLERATING DIET. DR. ENRIQUEZ MADE AWARE AND IN AGREEMENT WITH PLAN. PT AND SON AWARE AND IN AGREEMENT WITH THE PLAN. Objective - Vital Signs/Intake and Output Vital Signs (last 24 hours): Temp Pulse Resp BP Pulse Ox 98.4 F 61 19 159/73 H 96 04/28/17 08:04 04/28/17 08:04 04/28/17 08:04 04/28/17 08:04 04/28/17 08:04 Intake and Output: 04/28/17 04/28/17 06:59 18:59 Intake Total 1050 400 Output Total 250 Balance 1050 150 - Medications Medications: Current Medications Amlodipine Besylate (Norvasc) 10 mg PO DAILY [facility] Last Admin: 04/28/17 11:00 Dose: 10 mg Clopidogrel Bisulfate (Plavix) 75 mg PO DAILY [facility] Last Admin: 04/28/17 11:00 Dose: 75 mg Glipizide (Glucotrol) 10 mg PO BID [facility] Last Admin: 04/28/17 11:00 Dose: 10 mg Heparin Sodium (Porcine) (Heparin) 5,000 units SC Q8 [facility] Last Admin: 04/28/17 14:07 Dose: 5,000 units Sodium Chloride (Sodium Chloride 0.45%) 1,000 mls @ 50 mls/hr IV .Q20H [facility] Last Admin: 04/28/17 14:17 Dose: Not Given Ciprofloxacin (Cipro 200mg/100ml D5w) 100 mls @ 67 mls/hr IVPB Q12H [facility] Last Admin: 04/28/17 06:00 Dose: 67 mls/hr Metronidazole (Flagyl) 250 mg in 50 mls @ 100 mls/hr IVPB Q8 [facility] Stop: 05/02/17 22:01 Last Admin: 04/28/17 14:07 Dose: 100 mls/hr Isosorbide Mononitrate (Imdur Er) 30 mg PO DAILY [facility] Last Admin: 04/28/17 11:00 Dose: 30 mg Lactobacillus Acidophilus (Bacid Acidophilus) 1 cap PO BID [facility] Last Admin: 04/28/17 11:00 Dose: 1 cap Pantoprazole Sodium (Protonix Inj) 40 mg IVP DAILY [facility] Last Admin: 04/28/17 10:59 Dose: 40 mg Tamsulosin HCl (Flomax) 0.4 mg PO DAILY [facility] Last Admin: 04/28/17 11:00 Dose: 0.4 mg - Labs Labs: 04/28/17 07:57 04/28/17 07:57 PT 13.0 SECONDS (9.7-12.2) H 04/27/17 12:11 INR 1.1 04/27/17 12:11 APTT 28 SECONDS (21-34) 04/27/17 12:11
[2017-04-28 17:15] VITALS: RESP 20
--- NOTE | 2017-04-28 21:40 | CARD ---
APPROVED REPORT EKG Measurement Heart [id number] <Conclusion> Normal Sinus Inferior MA, age unknown Anterior T wave abnormality, consider ischemia Ventricular-demand paced rhythm Abnormal ECG
[2017-04-29] MEDS: Sodium Chloride 0.45% 1,000 ML IV SCH ×2 (03:50→11:06)
[2017-04-29] MEDS: metroNIDAZOLE IV 250mg/50 ml 250 MG/50 ML BAG IVPB SCH ×2 (05:55→13:20)
[2017-04-29] MEDS: Ciprofloxacin 200mg/100ml D5W 100 ML IVPB SCH (06:50)
[2017-04-29] MEDS: Lactobacillus Acidophilus 500 MU Cap PO SCH (09:51)
[2017-04-29 10:03] VITALS: BP 115/74; PULSE 74; TEMP 98.7; O2SAT 96
--- NOTE | 2017-04-29 13:37 | CP.PCM.PN ---
Subjective - Date & Time of Evaluation Date of Evaluation: 04/29/17 Time of Evaluation: 13:29 - Subjective Subjective: PT SEEN THIS MORNING AND PT FEELING "GOOD AND MUCH BETTER TODAY." PT VERY EAGER FOR TO GO HOME TODAY. PT HAD NORMAL BM AND DENIES CHILLS, N/V, DYSURIA. STILL C/O "A LITTLE" LEFT ABD PAIN THAT IS "MUCH BETTER TODAY." PT TOLERATED DIET YESTERDAY EVENING AND THIS MORNING FOR BREAKFAST. NOTED YESTERDAY, HE ALREADY HAS A F/U APPT WITH HIS GI FOR 05/16/17 TO REVIEW RESULTS OF RECENT EGD AND COLONOSCOPY. ON EXAM PT APPEARS COMFORTABLE AND IN NO ACUTE DISTRESS. AAOX3, SPEECH CLEAR; + BS IN ALL QUADRANTS, ABD SOFT, ND, MILD TENDERNESS TO LLQ AREA ON PALPATION, NO BLADDER DISTENTION. DISCUSSED CASE WITH DR. ENRIQUEZ AND PT CLEARED FOR D/C HOME TODAY. WILL RX 5 DAYS OF PO FLAGYL AND CIPRO PER [facility]. PT TO RESUME CURRENT HOME MEDS (PT STATES THAT HE HAS ENOUGH MEDICATION AND NO REFILLS NEEDED). TO F/U WITH DR. ENRIQUEZ OR DR. ALVARADO (PMD) IN THE OFFICE. PT EDUCATED BY BOLT LABELER AT LENGTH ON A DIVERTICULITIS/DIVERTICULOSIS FRIENDLY DIET. WAITING TO BE PICKED UP BY SON. NO FURTHER ORDERS. Objective - Vital Signs/Intake and Output Vital Signs (last 24 hours): Temp Pulse Resp BP Pulse Ox 98.7 F 74 20 115/74 96 04/29/17 08:00 04/29/17 08:00 04/29/17 08:00 04/29/17 08:00 04/29/17 08:00 Intake and Output: 04/29/17 04/29/17 06:59 18:59 Intake Total 1000 Balance 1000 - Medications Medications: Current Medications Amlodipine Besylate (Norvasc) 10 mg PO DAILY [facility] Last Admin: 04/29/17 09:52 Dose: 10 mg Clopidogrel Bisulfate (Plavix) 75 mg PO DAILY [facility] Last Admin: 04/29/17 09:52 Dose: 75 mg Glipizide (Glucotrol) 10 mg PO BID [facility] Last Admin: 04/29/17 09:51 Dose: 10 mg Heparin Sodium (Porcine) (Heparin) 5,000 units SC Q8 [facility] Last Admin: 04/29/17 13:21 Dose: 5,000 units Sodium Chloride (Sodium Chloride 0.45%) 1,000 mls @ 50 mls/hr IV .Q20H [facility] Last Admin: 04/29/17 11:06 Dose: 50 mls/hr Ciprofloxacin (Cipro 200mg/100ml D5w) 100 mls @ 67 mls/hr IVPB Q12H [facility] Last Admin: 04/29/17 06:50 Dose: 67 mls/hr Metronidazole (Flagyl) 250 mg in 50 mls @ 100 mls/hr IVPB Q8 [facility] Stop: 05/02/17 22:01 Last Admin: 04/29/17 13:20 Dose: 100 mls/hr Isosorbide Mononitrate (Imdur Er) 30 mg PO DAILY [facility] Last Admin: 04/29/17 09:51 Dose: 30 mg Lactobacillus Acidophilus (Bacid Acidophilus) 1 cap PO BID [facility] Last Admin: 04/29/17 09:51 Dose: 1 cap Pantoprazole Sodium (Protonix Inj) 40 mg IVP DAILY [facility] Last Admin: 04/29/17 09:52 Dose: 40 mg Tamsulosin HCl (Flomax) 0.4 mg PO DAILY [facility] Last Admin: 04/29/17 09:51 Dose: 0.4 mg - Labs Labs: 04/28/17 07:57 04/28/17 07:57 PT 13.0 SECONDS (9.7-12.2) H 04/27/17 12:11 INR 1.1 04/27/17 12:11 APTT 28 SECONDS (21-34) 04/27/17 12:11
== END 2017-04-29 15:06 | disposition home or self-care (01) | DRG 392 ==
LOC: C.ER 11:35 → C.9E 15:14 → C.3T 18:46
PROVIDERS: ADMIT Internal Medicine; ATTEND Internal Medicine
DX: K57.32 Diverticulitis of large intestine without perforation or abscess without bleeding (principal); K57.30 Diverticulosis of large intestine without perforation or abscess without bleeding; E86.0 Dehydration; E11.9 Type 2 diabetes mellitus without complications; E78.00 Pure hypercholesterolemia, unspecified; D64.9 Anemia, unspecified; Z77.090 Contact with and (suspected) exposure to asbestos; I10 Essential (primary) hypertension; M17.12 Unilateral primary osteoarthritis, left knee; Z95.0 Presence of cardiac pacemaker; Z90.49 Acquired absence of other specified parts of digestive tract

== ENCOUNTER 2017-06-09 12:23 | Inpatient (IN) | payer MEDICARE, MEDICAID ==
[2017-06-09 12:23] VITALS: BMI 29.6
--- NOTE | 2017-06-09 12:57 | C.PDOC ---
Time Seen by Provider: 06/09/17 12:27 Chief Complaint (Nursing): Abdominal Pain Past Medical History - Medical History PMH: Anemia, Anxiety, Arthritis (l knee), Diverticulitis, HTN Denies: Crohn's Disease, Gastritis, Gall Bladder Disease, HIV, Pancreatitis, Chronic Kidney Disease Surgical History: Cholecystectomy, Pacemaker - [facility] Procedures COLONOSCOPY (11/30/14) ENDOSC POLYPECTOMY OF LG INTEST (03/13/07) Family History: States: No Known Family Hx - Social History Hx Alcohol Use: No Hx Substance Use: No - Immunization History Hx Tetanus Toxoid Vaccination: No Hx Influenza Vaccination: Yes Hx Pneumococcal Vaccination: Yes Review Of Systems Except As Marked, All Systems Reviewed And Found Negative. Constitutional: Negative for: Fever Respiratory: Negative for: Shortness of Breath Disposition - Disposition
--- NOTE | 2017-06-09 12:57 | C.PDOC ---
History Of Present Illness 87 y/o male presents to the ER complaining of abdominal pain which has been present since the morning. Pain is LLQ, constant, nonradiating. Patient denies having any vomiting, diarrhea, and fever. Patient has no other medical complaints. Time Seen by Provider: 06/09/17 12:27 Chief Complaint (Nursing): Abdominal Pain History Per: Patient History/Exam Limitations: no limitations Onset/Duration Of Symptoms: Hrs Current Symptoms Are (Timing): Still Present Severity: Moderate Past Medical History Reviewed: Historical Data, Nursing Documentation, Vital Signs Vital Signs: Last Vital Signs Temp 97.7 F 06/09/17 13:04 Pulse 80 06/09/17 17:57 Resp 20 06/09/17 17:57 BP 145/67 06/09/17 17:57 Pulse Ox 100 06/09/17 17:57 - Medical History PMH: Anemia, Anxiety, Arthritis (l knee), Diverticulitis, HTN Denies: Crohn's Disease, Gastritis, Gall Bladder Disease, HIV, Pancreatitis, Chronic Kidney Disease Surgical History: Cholecystectomy, Pacemaker - [facility] Procedures COLONOSCOPY (11/30/14) ENDOSC POLYPECTOMY OF LG INTEST (03/13/07) Family History: States: No Known Family Hx - Social History Hx Alcohol Use: No Hx Substance Use: No - Immunization History Hx Tetanus Toxoid Vaccination: No Hx Influenza Vaccination: Yes Hx Pneumococcal Vaccination: Yes Review Of Systems Except As Marked, All Systems Reviewed And Found Negative. Constitutional: Negative for: Fever Gastrointestinal: Positive for: Abdominal Pain. Negative for: Vomiting, Diarrhea Physical Exam - Physical Exam Additional Physical Exam Comments: Gen: No acute distress. Head: Normocephalic, atraumatic. Eyes: PERRL. ENT: Moist mucous membranes. Neck: Supple. Chest: No tenderness. CV: Regular rate. Radial pulses 2+ bilaterally. Resp: Clear to auscultation bilaterally. Abd: Soft, LLQ tenderness without guarding, no rebound Extremities: No swelling or tenderness. Skin: No rash. Neuro: Alert, no focal deficit. ED Course And Treatment - Laboratory Results Result Diagrams: 06/09/17 13:08 06/09/17 13:08 Medical Decision Making Medical Decision Making: CT Results PROCEDURE: CT Abdomen and Pelvis without intravenous contrast HISTORY: LLQ pain COMPARISON: CT scan of the abdomen pelvis dated 04/27/2017. TECHNIQUE: Contiguous images were obtained from the domes of the diaphragms to the upper thighs without the administration of intravenous contrast. Oral contrast was not administered. Radiation dose: Total exam DLP = 672.5 mGy-cm. This CT exam was performed using one or more of the following dose reduction techniques: Automated exposure control, adjustment of the mA and/or kV according to patient size, and/or use of iterative reconstruction technique. FINDINGS: LOWER THORAX: Cardiomegaly. Partially imaged implanted cardiac device leads. Small pericardial effusion. Bibasilar dependent atelectasis. Calcified pleural plaques. LIVER: Unremarkable. No gross lesion or ductal dilatation. GALLBLADDER AND BILE DUCTS: Prior cholecystectomy surgical clips redemonstrated. PANCREAS: Unremarkable. No gross lesion or ductal dilatation. SPLEEN: Unremarkable. ADRENALS: Unremarkable. No mass. KIDNEYS AND URETERS: Unremarkable. No hydronephrosis. No solid mass. VASCULATURE: Unremarkable. No aortic aneurysm. BOWEL: Extensive colonic diverticulosis without evidence for diverticulitis. No obstruction. No gross mural thickening. APPENDIX: Unremarkable. Normal appendix. PERITONEUM: Small bilateral fat containing inguinal hernias. No free fluid. No free air. LYMPH NODES: Unremarkable. No enlarged lymph nodes. BLADDER: Unremarkable. REPRODUCTIVE: Enlarged prostate. BONES: No acute fracture. OTHER FINDINGS: None. IMPRESSION: No acute abdominal pelvic pathology. No urolithiasis or evidence of recently passed genitourinary calculus. Extensive colonic diverticulosis without evidence for acute diverticulitis. Additional stable findings as above. CXR Results HISTORY: abd pain COMPARISON: Chest radiograph dated 04/27/2017. FINDINGS: LUNGS: No active pulmonary disease. PLEURA: No significant pleural effusion identified, no pneumothorax apparent. CARDIOVASCULAR: Left subclavian access to lead pacemaker redemonstrated. Cardiomediastinal silhouette stably enlarged. OSSEOUS STRUCTURES: Unchanged. VISUALIZED UPPER ABDOMEN: Right upper quadrant surgical clips redemonstrated. OTHER FINDINGS: None. IMPRESSION: No active disease. EKG Ventricularly paced rhythm, no ST elevations. Patient's blood pressure has been normal when checked on portable vitals machine. Suspect monitor blood pressure monitoring that were documented were inaccurate. Patient with acute on chronic renal insufficiency, likely secondary to dehydration. Dr. Rizo accepts patient to his service. Disposition - Disposition Disposition: HOSPITALIZED Disposition Time: 16:57 Condition: FAIR - Clinical Impression Clinical Impression: Acute on chronic renal insufficiency, Dehydration - Scribe Statement The provider has reviewed the documentation as recorded by the Scribe Michael Sevilla Provider Attestation: All medical record entries made by the Scribe were at my direction and personally dictated by me. I have reviewed the chart and agree that the record accurately reflects my personal performance of the history, physical exam, medical decision making, and the department course for this patient. I have also personally directed, reviewed, and agree with the discharge instructions and disposition.
[2017-06-09] MEDS ORDERED: Sodium Chloride 0.9% 1,000 ML IV STA (12:59)
[2017-06-09 13:12] LABS: BASO # 0.1 K/uL (0.0-0.2); BASO % 1.1 % (0.0-2.0); EOS # 0.2 K/uL (0.0-0.7); EOS % 3.5 % (0.0-4.0); HEMOGLOBIN 12.3 g/dL (12.0-18.0); LYMPH # 1.5 K/uL (1.0-4.3); LYMPH % 27.9 % (20.0-40.0); MEAN CELL VOLUME 90.8 fL (80.0-94.0); MEAN CORPUSCULAR HEMOGLOBIN 30.6 pg (27.0-31.0); MEAN CORPUSCULAR HGB CONC 33.7 g/dL (33.0-37.0); MEAN PLATELET VOLUME 8.9 fL (7.2-11.7); MONO # 0.6 K/uL (0.0-0.8); MONO % 10.5 % (0.0-10.0); NEUT # 3.1 K/uL (1.8-7.0); RBC 4.03 Mil/uL (4.40-5.90); WHITE BLOOD COUNT 5.5 K/uL (4.8-10.8)
[2017-06-09 13:26] LABS: ALB/GLOB RATIO 1.2 (1.0-2.1); ALBUMIN 3.6 g/dL (3.5-5.0)
--- NOTE | 2017-06-09 15:45 | CT ---
PROCEDURE: CT Abdomen and Pelvis without intravenous contrast HISTORY: LLQ pain COMPARISON: CT scan of the abdomen pelvis dated 04/27/2017. TECHNIQUE: Contiguous images were obtained from the domes of the diaphragms to the upper thighs without the administration of intravenous contrast. Oral contrast was not administered. Radiation dose: Total exam DLP = 672.5 mGy-cm. This CT exam was performed using one or more of the following dose reduction techniques: Automated exposure control, adjustment of the mA and/or kV according to patient size, and/or use of iterative reconstruction technique. FINDINGS: LOWER THORAX: Cardiomegaly. Partially imaged implanted cardiac device leads. Small pericardial effusion. Bibasilar dependent atelectasis. Calcified pleural plaques. LIVER: Unremarkable. No gross lesion or ductal dilatation. GALLBLADDER AND BILE DUCTS: Prior cholecystectomy surgical clips redemonstrated. PANCREAS: Unremarkable. No gross lesion or ductal dilatation. SPLEEN: Unremarkable. ADRENALS: Unremarkable. No mass. KIDNEYS AND URETERS: Unremarkable. No hydronephrosis. No solid mass. VASCULATURE: Unremarkable. No aortic aneurysm. BOWEL: Extensive colonic diverticulosis without evidence for diverticulitis. No obstruction. No gross mural thickening. APPENDIX: Unremarkable. Normal appendix. PERITONEUM: Small bilateral fat containing inguinal hernias. No free fluid. No free air. LYMPH NODES: Unremarkable. No enlarged lymph nodes. BLADDER: Unremarkable. REPRODUCTIVE: Enlarged prostate. BONES: No acute fracture. OTHER FINDINGS: None. IMPRESSION: No acute abdominal pelvic pathology. No urolithiasis or evidence of recently passed genitourinary calculus. Extensive colonic diverticulosis without evidence for acute diverticulitis. Additional stable findings as above.
--- NOTE | 2017-06-09 16:17 | RAD ---
HISTORY: abd pain COMPARISON: Chest radiograph dated 04/27/2017. FINDINGS: LUNGS: No active pulmonary disease. PLEURA: No significant pleural effusion identified, no pneumothorax apparent. CARDIOVASCULAR: Left subclavian access to lead pacemaker redemonstrated. Cardiomediastinal silhouette stably enlarged. OSSEOUS STRUCTURES: Unchanged. VISUALIZED UPPER ABDOMEN: Right upper quadrant surgical clips redemonstrated. OTHER FINDINGS: None. IMPRESSION: No active disease.
[2017-06-09 16:39] LABS: URINE BACTERIA RARE (<OCC); URINE BILIRUBIN NEGATIVE (NEGATIVE); URINE BLOOD NEGATIVE (NEGATIVE); URINE CLARITY Clear (Clear); URINE COLOR Yellow (YELLOW); URINE GLUCOSE (UA) NORMAL (Normal); URINE LEUKOCYTE ESTERASE NEG Leu/uL (Negative); URINE NITRATE NEGATIVE (NEGATIVE); URINE PROTEIN NEGATIVE (NEGATIVE); URINE UROBILINOGEN NORMAL mg/dL (0.2-1.0)
[2017-06-09] MEDS ORDERED: Sodium Chloride 0.9% 1,000 ML IV SCH (18:00)
[2017-06-09] MEDS: Sodium Chloride 0.9% 1,000 ML IV SCH (18:30)
[2017-06-09] MEDS: Lactobacillus Acidophilus 500 MU Cap PO SCH (18:30)
[2017-06-10] MEDS: Sodium Chloride 0.9% 1,000 ML IV SCH ×4 (03:45→17:13)
[2017-06-10] MEDS: Lactobacillus Acidophilus 500 MU Cap PO SCH ×2 (09:31→17:12)
[2017-06-10 11:43] LABS: CALCIUM 8.3 mg/dl (8.6-10.4)
--- NOTE | 2017-06-10 21:20 | CP.PCM.HP ---
History of Present Illness - History of Present Illness History of Present Illness: CC: abd pain and weakness History present illness: 87-year-old male with history of hypertension diabetes diverticulosis recently was hospitalized with acute diverticulitis,came to the office with abdominal pain and dizziness.pain diffuse and more over epigastric area and LLQ area note. no vomiting or no nause. constipation noted. According to the patient's family he is having unstable gait, and walking is somewhat disturbed, unable to stand up by himself, he needs assistance also. He is also having significant shaking. Recently he also started having increasing pain over the left upper quadrant, associated with the episodes of diarrhea, sometimes nausea. No fever noted, denies any chills. Shaking noted. Past medical history: Hypertension diabetes diverticulosis pacemaker Allergy: No known drug allergy Personal history: Not spoken nonalcoholic lives with family members. No significant family history Review of system: Currently having no headache, but in consistent with weakness tiredness and easy fatigability. Unstable walking, and also falls. Patient has a pacemaker Vital signs reviewed No neck vein distention noted Chest good air entry bilaterally, no wheezing or rales noted CVS regular heart sound, no murmur noted Abdomen soft, nontender. Extremities no pedal edema [employer] alert awake oriented 3, no functional neurological deficit Patient is having shaking as well as tremor resting. Flapping tremor also noted occasionally. Labs reviewed Elevated creatinine level noted. 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 Possible diverticulitis cannot be ruled out, dehydration, will continue the IV fluid, and intravenous Flagyl. Antibiotic. IV fluid. Monitor the fluid status. And will follow the patient Past Patient History - Infectious Disease Hx of Infectious Diseases: None - Past Medical History & Family History Past Medical History?: Yes - Past Social History Smoking Status: Unknown If Ever Smoked - CARDIAC Hx Hypertension: Yes - PULMONARY Hx Respiratory Disorders: No - NEUROLOGICAL Hx Neurological Disorder: No - HEENT Hx HEENT Problems: No - RENAL Hx Chronic Kidney Disease: No - ENDOCRINE/METABOLIC Hx Diabetes Mellitus Type 2: Yes - HEMATOLOGICAL/ONCOLOGICAL Hx Anemia: Yes Hx Human Immunodeficiency Virus (HIV): No - INTEGUMENTARY Hx Dermatological Problems: No - MUSCULOSKELETAL/RHEUMATOLOGICAL Hx Arthritis: Yes (l knee, BACK) - GASTROINTESTINAL Hx Crohn's Disease: No Hx Diverticulitis: Yes Hx Gall Bladder Disease: No Hx Gastritis: No Hx Pancreatitis: No - GENITOURINARY/GYNECOLOGICAL Hx Genitourinary Disorders: No - PSYCHIATRIC Hx Substance Use: No - SURGICAL HISTORY Hx Cholecystectomy: Yes - ANESTHESIA Hx Anesthesia: Yes Hx Anesthesia Reactions: No Hx Malignant Hyperthermia: No Meds Allergies/Adverse Reactions: Allergies Allergy/AdvReac Type Severity Reaction Status Date / Time No Known Allergies Allergy Verified 01/11/17 11:28 Results - Vital Signs Recent Vital Signs: Last Vital Signs Temp 97.6 F 06/10/17 16:00 Pulse 74 06/10/17 16:40 Resp 20 06/10/17 16:00 BP 148/69 06/10/17 16:40 Pulse Ox 95 06/10/17 16:40 - Labs Result Diagrams: 06/11/17 08:23 06/11/17 08:23 Labs: Laboratory Results - last 24 hr 06/09/17 06/10/17 06/10/17 21:16 07:04 11:19 Sodium 136 Potassium 4.1 Chloride 101 Carbon Dioxide 27 Anion Gap 12 BUN 28 H Creatinine 1.6 H Est GFR ( Amer) 50 Est GFR (Non-Af Amer) 41 POC Glucose (mg/dL) 201 H 114 H Random Glucose 184 H Calcium 8.3 L 06/10/17 06/10/17 06/10/17 11:27 16:23 21:09 Sodium Potassium Chloride Carbon Dioxide Anion Gap BUN Creatinine Est GFR ( Amer) Est GFR (Non-Af Amer) POC Glucose (mg/dL) 154 H 152 H 200 H Random Glucose Calcium
--- NOTE | 2017-06-10 21:21 | CP.PCM.PN ---
Subjective - Date & Time of Evaluation Date of Evaluation: 06/10/17 Time of Evaluation: 21:20 - Subjective Subjective: pt is having pain in the abd nause negative sugar elevated no chest pain eating ok epigastric pain on IV abd tenderness noted no bm labs noted cr improving will continue ivf GI eval close monitoring Objective - Vital Signs/Intake and Output Vital Signs (last 24 hours): Temp Pulse Resp BP Pulse Ox 97.6 F 74 20 148/69 95 06/10/17 16:00 06/10/17 16:40 06/10/17 16:00 06/10/17 16:40 06/10/17 16:40 Intake and Output: 06/10/17 06/11/17 18:59 06:59 Intake Total 2250 Output Total 1100 Balance 1150 - Medications Medications: Current Medications Amlodipine Besylate (Norvasc) 10 mg PO DAILY [facility] Last Admin: 06/10/17 09:32 Dose: 10 mg Clopidogrel Bisulfate (Plavix) 75 mg PO DAILY [facility] Last Admin: 06/10/17 09:31 Dose: 75 mg Famotidine (Pepcid) 20 mg IVP DAILY [facility] Last Admin: 06/10/17 09:31 Dose: 20 mg Glipizide (Glucotrol) 10 mg PO BID [facility] Last Admin: 06/10/17 17:12 Dose: 10 mg Heparin Sodium (Porcine) (Heparin) 5,000 units SC Q12 [facility] Last Admin: 06/10/17 09:32 Dose: 5,000 units Hydrochlorothiazide (Hydrodiuril) 25 mg PO DAILY [facility] Last Admin: 06/10/17 09:32 Dose: 25 mg Isosorbide Mononitrate (Imdur Er) 30 mg PO DAILY [facility] Last Admin: 06/10/17 09:31 Dose: 30 mg Lactobacillus Acidophilus (Bacid Acidophilus) 1 cap PO BID [facility] Last Admin: 06/10/17 17:12 Dose: 1 cap Losartan Potassium (Cozaar) 100 mg PO DAILY [facility] Last Admin: 06/10/17 09:32 Dose: 100 mg Metronidazole (Flagyl) 250 mg PO Q8 [facility] Last Admin: 06/10/17 13:25 Dose: 250 mg Pneumococcal Polyvalent Vaccine (Pneumovax 23 Vaccine) 0.5 ml IM .ONCE ONE Stop: 06/11/17 10:01 Tamsulosin HCl (Flomax) 0.4 mg PO DAILY [facility] Last Admin: 06/10/17 09:32 Dose: 0.4 mg - Labs Labs: 06/09/17 13:08 06/10/17 11:19
[2017-06-11 08:38] LABS: LYMPH # 1.7 K/uL (1.0-4.3); MONO # 0.7 K/uL (0.0-0.8); RED CELL DISTRIBUTION WIDTH 14.1 % (11.5-14.5)
[2017-06-11 08:43] LABS: BASO % 0.9 % (0.0-2.0); EOS # 0.2 K/uL (0.0-0.7); EOS % 4.3 % (0.0-4.0); HEMOGLOBIN 14.6 g/dL (12.0-18.0); LYMPH % 30.8 % (20.0-40.0); MEAN CELL VOLUME 90.4 fL (80.0-94.0); MEAN CORPUSCULAR HEMOGLOBIN 30.6 pg (27.0-31.0); MEAN CORPUSCULAR HGB CONC 33.9 g/dL (33.0-37.0); MEAN PLATELET VOLUME 9.2 fL (7.2-11.7); MONO % 13.1 % (0.0-10.0); NEUT # 2.9 K/uL (1.8-7.0); NEUT % 50.9 % (50.0-75.0); RBC 4.76 Mil/uL (4.40-5.90); WHITE BLOOD COUNT 5.6 K/uL (4.8-10.8)
[2017-06-11 08:45] LABS: BLOOD UREA NITROGEN 21 mg/dL (9-20); CALCIUM 8.6 mg/dl (8.6-10.4); GFR AFRICAN-AMERICAN > 60; GFR NON-AFRICAN AMERICAN 52
[2017-06-11] MEDS: Lactobacillus Acidophilus 500 MU Cap PO SCH ×2 (09:25→17:15)
--- NOTE | 2017-06-11 09:33 | CP.PCM.CON ---
History of Present Illness - History of Present Illness History of Present Illness: CC: Abdominal pain HPI: 87 year old man admitted 2 days ago with diffuse, poorly characterized, left sided abdominal pain. CT schowed left colonic diverticulosis without diverticulitis. He feels bloated. Denies fevers, chills, N/V, blood in stool. Colonoscopy ;last was done in November 2014 and showed cullen colonic diverticulosis. Patient has chronic constipation. He feels better today, and tolerated breakfast. Review of Systems - Constitutional Constitutional: absent: Chills, Fever - EENT Eyes: absent: Change in Vision Ears: absent: Ear Pain Nose/Mouth/Throat: absent: Epistaxis - Cardiovascular Cardiovascular: absent: Chest Pain - Respiratory Respiratory: absent: Dyspnea - Gastrointestinal Gastrointestinal: Abdominal Pain, Constipation. absent: Melena, Nausea - Musculoskeletal Musculoskeletal: Back Pain - Integumentary Integumentary: absent: Jaundice - Neurological Neurological: Weakness - Psychiatric Psychiatric: absent: Depression - Hematologic/Lymphatic Hematologic: absent: Easy Bruising Past Patient History - Infectious Disease Hx of Infectious Diseases: None - Past Medical History & Family History Past Medical History?: Yes - Past Social History Smoking Status: Unknown If Ever Smoked - CARDIAC Hx Hypertension: Yes - PULMONARY Hx Respiratory Disorders: No - NEUROLOGICAL Hx Neurological Disorder: No - HEENT Hx HEENT Problems: No - RENAL Hx Chronic Kidney Disease: No - ENDOCRINE/METABOLIC Hx Diabetes Mellitus Type 2: Yes - HEMATOLOGICAL/ONCOLOGICAL Hx Anemia: Yes Hx Human Immunodeficiency Virus (HIV): No - INTEGUMENTARY Hx Dermatological Problems: No - MUSCULOSKELETAL/RHEUMATOLOGICAL Hx Arthritis: Yes (l knee, BACK) - GASTROINTESTINAL Hx Crohn's Disease: No Hx Diverticulitis: Yes Hx Gall Bladder Disease: No Hx Gastritis: No Hx Pancreatitis: No - GENITOURINARY/GYNECOLOGICAL Hx Genitourinary Disorders: No - PSYCHIATRIC Hx Substance Use: No - SURGICAL HISTORY Hx Cholecystectomy: Yes - ANESTHESIA Hx Anesthesia: Yes Hx Anesthesia Reactions: No Hx Malignant Hyperthermia: No Meds Allergies/Adverse Reactions: Allergies Allergy/AdvReac Type Severity Reaction Status Date / Time No Known Allergies Allergy Verified 01/11/17 11:28 - Medications Medications: Current Medications Amlodipine Besylate (Norvasc) 10 mg PO DAILY [facility] Last Admin: 06/10/17 09:32 Dose: 10 mg Clopidogrel Bisulfate (Plavix) 75 mg PO DAILY [facility] Last Admin: 06/11/17 09:25 Dose: 75 mg Famotidine (Pepcid) 20 mg IVP DAILY [facility] Last Admin: 06/11/17 09:25 Dose: 20 mg Glipizide (Glucotrol) 10 mg PO BID [facility] Last Admin: 06/11/17 09:25 Dose: 10 mg Heparin Sodium (Porcine) (Heparin) 5,000 units SC Q12 [facility] Last Admin: 06/11/17 09:25 Dose: 5,000 units Isosorbide Mononitrate (Imdur Er) 30 mg PO DAILY [facility] Last Admin: 06/11/17 09:25 Dose: 30 mg Lactobacillus Acidophilus (Bacid Acidophilus) 1 cap PO BID [facility] Last Admin: 06/11/17 09:25 Dose: 1 cap Losartan Potassium (Cozaar) 100 mg PO DAILY [facility] Last Admin: 06/11/17 09:25 Dose: 100 mg Metronidazole (Flagyl) 250 mg PO Q8 [facility] Last Admin: 06/11/17 05:54 Dose: 250 mg Pneumococcal Polyvalent Vaccine (Pneumovax 23 Vaccine) 0.5 ml IM .ONCE ONE Stop: 06/11/17 10:01 Last Admin: 06/11/17 09:24 Dose: Not Given Tamsulosin HCl (Flomax) 0.4 mg PO DAILY [facility] Last Admin: 06/11/17 09:25 Dose: 0.4 mg Physical Exam - Constitutional Appears: Well, No Acute Distress - Head Exam Head Exam: ATRAUMATIC, NORMOCEPHALIC - Eye Exam Eye Exam: Normal appearance. absent: Scleral icterus - ENT Exam ENT Exam: Normal Exam - Neck Exam Neck exam: Positive for: Normal Inspection - Respiratory Exam Respiratory Exam: Clear to Auscultation Bilateral - Cardiovascular Exam Cardiovascular Exam: REGULAR RHYTHM - GI/Abdominal Exam GI & Abdominal Exam: Soft, Tenderness. absent: Distended, Guarding, Mass, Organomegaly, Rebound - Rectal Exam Rectal Exam: Deferred - Extremities Exam Extremities exam: Positive for: normal inspection - Back Exam Back exam: NORMAL INSPECTION - Neurological Exam Neurological exam: Alert, Oriented x3 - Psychiatric Exam Psychiatric exam: Normal Affect, Normal Mood - Skin Skin Exam: Warm Results - Vital Signs Recent Vital Signs: Last Vital Signs Temp 98.3 F 06/11/17 08:00 Pulse 60 06/11/17 08:00 Resp 20 06/11/17 08:00 BP 184/74 H 06/11/17 08:00 Pulse Ox 97 06/11/17 08:00 - Labs Result Diagrams: 06/11/17 08:23 06/11/17 08:23 Labs: Laboratory Results - last 24 hr 06/10/17 06/10/17 06/10/17 11:19 11:27 16:23 WBC RBC Hgb Hct MCV MCH MCHC RDW Plt Count MPV Neut % (Auto) Lymph % (Auto) [place] % (Auto) Eos % (Auto) Baso % (Auto) Neut # Lymph # [place] # Eos # Baso # Sodium 136 Potassium 4.1 Chloride 101 Carbon Dioxide 27 Anion Gap 12 BUN 28 H Creatinine 1.6 H Est GFR ( Amer) 50 Est GFR (Non-Af Amer) 41 POC Glucose (mg/dL) 154 H 152 H Random Glucose 184 H Calcium 8.3 L 06/10/17 06/11/17 06/11/17 21:09 08:23 08:23 WBC 5.6 RBC 4.76 Hgb 14.6 D Hct 43.0 MCV 90.4 MCH 30.6 MCHC 33.9 RDW 14.1 Plt Count 195 MPV 9.2 Neut % (Auto) 50.9 Lymph % (Auto) 30.8 [place] % (Auto) 13.1 H Eos % (Auto) 4.3 H Baso % (Auto) 0.9 Neut # 2.9 Lymph # 1.7 [place] # 0.7 Eos # 0.2 Baso # 0.0 Sodium 134 Potassium 4.5 Chloride 99 Carbon Dioxide 26 Anion Gap 14 BUN 21 H Creatinine 1.3 Est GFR ( Amer) > 60 Est GFR (Non-Af Amer) 52 POC Glucose (mg/dL) 200 H Random Glucose 141 H Calcium 8.6 Assessment & Plan (1) Abdominal pain Assessment and Plan: Mainly upper abdomen. ? Peptic. ?functional Rec: Bentyl. EGD. Continue Pepcid Status: Acute (2) Constipation Assessment and Plan: Chronic Colonoscopy 2014 without obstructing lesions/masses rec: Miralax Status: Acute (3) Diverticula of colon Assessment and Plan: Chronic diverticulosis. No evidence of diverticulitis. Abdominal pain may be related to spasms No need for antibiotics, will stop Flagyl Status: Acute
[2017-06-11] MEDS ORDERED: Pneumococcal 23-Valent Vaccine IM ONE (10:00)
[2017-06-11] MEDS ORDERED: Influenza Vaccine 60 mcg/0.5 mL SYR (4YR UP) IM ONE (10:00)
[2017-06-11] MEDS: POLYETHYLENE GLYCOL 3350 17 GM/Dose PACKET PO SCH (10:32)
--- NOTE | 2017-06-11 21:43 | CARD ---
APPROVED REPORT EKG Measurement Heart [id number] <Conclusion> Supraventricular tachycardia with frequent ventricular-paced complexes T wave abnormality, consider inferolateral ischemia Abnormal ECG
[2017-06-12] MEDS: Lactobacillus Acidophilus 500 MU Cap PO SCH ×2 (09:50→17:57)
[2017-06-12] MEDS: POLYETHYLENE GLYCOL 3350 17 GM/Dose PACKET PO SCH (09:51)
[2017-06-12] MEDS ORDERED: Lactated Ringer's 1,000 ML IV ONE (12:20)
[2017-06-12 16:44] VITALS: RESP 20
--- NOTE | 2017-06-12 22:10 | CP.PCM.PN ---
Subjective - Date & Time of Evaluation Date of Evaluation: 06/12/17 Time of Evaluation: 22:07 - Subjective Subjective: pt had endoscopy done pain in the abd noted eating ok continue ivf possible dc in am Objective - Vital Signs/Intake and Output Vital Signs (last 24 hours): Temp Pulse Resp BP Pulse Ox 97.9 F 69 20 113/71 97 06/12/17 15:00 06/12/17 15:28 06/12/17 15:00 06/12/17 15:00 06/12/17 15:28 Intake and Output: 06/12/17 06/13/17 18:59 06:59 Intake Total 360 Balance 360 - Medications Medications: Current Medications Amlodipine Besylate (Norvasc) 10 mg PO DAILY [facility] Last Admin: 06/12/17 09:50 Dose: 10 mg Clopidogrel Bisulfate (Plavix) 75 mg PO DAILY [facility] Last Admin: 06/12/17 09:51 Dose: Not Given Dicyclomine HCl (Bentyl) 10 mg PO TID [facility] Last Admin: 06/12/17 17:57 Dose: 10 mg Famotidine (Pepcid) 20 mg IVP DAILY [facility] Last Admin: 06/12/17 09:53 Dose: 20 mg Glipizide (Glucotrol) 10 mg PO BID [facility] Last Admin: 06/12/17 17:57 Dose: 10 mg Heparin Sodium (Porcine) (Heparin) 5,000 units SC Q12 [facility] Last Admin: 06/12/17 21:39 Dose: 5,000 units Isosorbide Mononitrate (Imdur Er) 30 mg PO DAILY [facility] Last Admin: 06/12/17 09:50 Dose: 30 mg Lactobacillus Acidophilus (Bacid Acidophilus) 1 cap PO BID [facility] Last Admin: 06/12/17 17:57 Dose: 1 cap Losartan Potassium (Cozaar) 100 mg PO DAILY [facility] Last Admin: 06/12/17 09:50 Dose: 100 mg Polyethylene Glycol (Miralax) 17 gm PO DAILY [facility] Last Admin: 06/12/17 09:51 Dose: Not Given Tamsulosin HCl (Flomax) 0.4 mg PO DAILY [facility] Last Admin: 06/12/17 09:50 Dose: 0.4 mg - Labs Labs: 06/11/17 08:23 06/11/17 08:23
[2017-06-13 08:41] LABS: BASO % 0.8 % (0.0-2.0); EOS # 0.3 K/uL (0.0-0.7); EOS % 4.4 % (0.0-4.0); LYMPH # 2.5 K/uL (1.0-4.3); LYMPH % 42.7 % (20.0-40.0); MEAN CELL VOLUME 90.6 fL (80.0-94.0); MEAN CORPUSCULAR HEMOGLOBIN 31.2 pg (27.0-31.0); MEAN CORPUSCULAR HGB CONC 34.4 g/dL (33.0-37.0); MEAN PLATELET VOLUME 9.4 fL (7.2-11.7); MONO # 0.9 K/uL (0.0-0.8); MONO % 15.5 % (0.0-10.0); NEUT # 2.1 K/uL (1.8-7.0); NEUT % 36.6 % (50.0-75.0); NRBC % 0.1 % (0.0-2.0); RBC 4.83 Mil/uL (4.40-5.90); WHITE BLOOD COUNT 5.9 K/uL (4.8-10.8)
[2017-06-13 08:53] LABS: CALCIUM 8.7 mg/dl (8.6-10.4)
[2017-06-13] MEDS: Lactobacillus Acidophilus 500 MU Cap PO SCH ×2 (10:06→18:09)
[2017-06-13] MEDS: POLYETHYLENE GLYCOL 3350 17 GM/Dose PACKET PO SCH (10:10)
--- NOTE | 2017-06-13 13:40 | CP.PCM.PN ---
Subjective - Date & Time of Evaluation Date of Evaluation: 06/13/17 Time of Evaluation: 13:37 - Subjective Subjective: CC: abdominal pain LUQ discomfort. Dizziness. Tolerating diet. EGD unremarkable. CT- diverticulosis but done without contrast Son at bedside states patient sees Dr Richards and had Colonoscopy 2 months ago, and is anemic, and mentioned capsule endoscopy. Patient shows normal Hgb levels here. Objective - Vital Signs/Intake and Output Vital Signs (last 24 hours): Temp Pulse Resp BP Pulse Ox 98.2 F 77 20 135/71 95 06/13/17 08:07 06/13/17 08:07 06/13/17 08:07 06/13/17 08:07 06/13/17 08:07 Intake and Output: 06/13/17 06/13/17 06:59 18:59 Intake Total 600 Output Total 300 Balance 300 - Medications Medications: Current Medications Amlodipine Besylate (Norvasc) 10 mg PO DAILY [facility] Last Admin: 06/13/17 10:06 Dose: 10 mg Clopidogrel Bisulfate (Plavix) 75 mg PO DAILY [facility] Last Admin: 06/13/17 10:06 Dose: 75 mg Dicyclomine HCl (Bentyl) 10 mg PO TID [facility] Last Admin: 06/13/17 10:06 Dose: 10 mg Famotidine (Pepcid) 20 mg IVP DAILY [facility] Last Admin: 06/13/17 10:14 Dose: 20 mg Glipizide (Glucotrol) 10 mg PO BID [facility] Last Admin: 06/13/17 10:06 Dose: 10 mg Heparin Sodium (Porcine) (Heparin) 5,000 units SC Q12 [facility] Last Admin: 06/13/17 10:07 Dose: 5,000 units Isosorbide Mononitrate (Imdur Er) 30 mg PO DAILY [facility] Last Admin: 06/13/17 10:06 Dose: 30 mg Lactobacillus Acidophilus (Bacid Acidophilus) 1 cap PO BID [facility] Last Admin: 06/13/17 10:06 Dose: 1 cap Losartan Potassium (Cozaar) 100 mg PO DAILY [facility] Last Admin: 06/13/17 10:06 Dose: 100 mg Polyethylene Glycol (Miralax) 17 gm PO DAILY [facility] Last Admin: 06/13/17 10:10 Dose: 17 gm Tamsulosin HCl (Flomax) 0.4 mg PO DAILY [facility] Last Admin: 06/13/17 10:06 Dose: 0.4 mg - Labs Labs: 06/13/17 08:27 06/13/17 08:27 - Constitutional Appears: Well, No Acute Distress - Head Exam Head Exam: NORMOCEPHALIC - Eye Exam Eye Exam: absent: Scleral icterus - ENT Exam ENT Exam: Normal Exam - Neck Exam Neck Exam: Normal Inspection - Respiratory Exam Respiratory Exam: Clear to Ausculation Bilateral - Cardiovascular Exam Cardiovascular Exam: REGULAR RHYTHM - GI/Abdominal Exam GI & Abdominal Exam: Soft. absent: Tenderness, Mass Assessment and Plan (1) Abdominal pain Assessment & Plan: Upper abdomoinal pain, chronic, cause undetermined. Also c/o constipation. Trial of Bentyl and Miralax. CT with contrast can not be done due to renal insufficiency Status: Acute (2) Constipation Status: Acute (3) Diverticula of colon Status: Acute
[2017-06-14] MEDS: POLYETHYLENE GLYCOL 3350 17 GM/Dose PACKET PO SCH (09:41)
[2017-06-14] MEDS: Lactobacillus Acidophilus 500 MU Cap PO SCH ×2 (09:41→17:40)
--- NOTE | 2017-06-14 09:59 | CP.PCM.PN ---
Subjective - Date & Time of Evaluation Date of Evaluation: 06/14/17 Time of Evaluation: 09:55 - Subjective Subjective: Patient continues to complain of vague LLQ and back pain. He denies having nausea, vomiting, diarrhea, constipation. Objective - Vital Signs/Intake and Output Vital Signs (last 24 hours): Temp Pulse Resp BP Pulse Ox 97.9 F 64 20 145/74 95 06/14/17 08:22 06/14/17 08:22 06/14/17 08:22 06/14/17 08:22 06/14/17 08:22 Intake and Output: 06/14/17 06/14/17 06:59 18:59 Intake Total 470 Balance 470 - Medications Medications: Current Medications Amlodipine Besylate (Norvasc) 10 mg PO DAILY [facility] Last Admin: 06/14/17 09:48 Dose: 10 mg Clopidogrel Bisulfate (Plavix) 75 mg PO DAILY [facility] Last Admin: 06/14/17 09:41 Dose: 75 mg Dicyclomine HCl (Bentyl) 10 mg PO TID [facility] Last Admin: 06/14/17 09:41 Dose: 10 mg Famotidine (Pepcid) 20 mg IVP DAILY [facility] Last Admin: 06/14/17 09:41 Dose: 20 mg Glipizide (Glucotrol) 10 mg PO BID [facility] Last Admin: 06/14/17 09:43 Dose: 10 mg Heparin Sodium (Porcine) (Heparin) 5,000 units SC Q12 [facility] Last Admin: 06/14/17 09:41 Dose: 5,000 units Isosorbide Mononitrate (Imdur Er) 30 mg PO DAILY [facility] Last Admin: 06/14/17 09:41 Dose: 30 mg Lactobacillus Acidophilus (Bacid Acidophilus) 1 cap PO BID [facility] Last Admin: 06/14/17 09:41 Dose: 1 cap Losartan Potassium (Cozaar) 100 mg PO DAILY [facility] Last Admin: 06/14/17 09:41 Dose: 100 mg Polyethylene Glycol (Miralax) 17 gm PO DAILY [facility] Last Admin: 06/14/17 09:41 Dose: 17 gm Tamsulosin HCl (Flomax) 0.4 mg PO DAILY [facility] Last Admin: 06/14/17 09:41 Dose: 0.4 mg - Labs Labs: 06/13/17 08:27 - Constitutional Appears: No Acute Distress - Head Exam Head Exam: ATRAUMATIC, NORMOCEPHALIC - Eye Exam Eye Exam: EOMI - Neck Exam Neck Exam: absent: Lymphadenopathy, Thyromegaly - Respiratory Exam Respiratory Exam: NORMAL BREATHING PATTERN. absent: Rales, Rhonchi, Wheezes - Cardiovascular Exam Cardiovascular Exam: REGULAR RHYTHM, +S1, +S2. absent: Gallop, Rubs, Murmur - GI/Abdominal Exam GI & Abdominal Exam: Soft, Normal Bowel Sounds. absent: Tenderness, Mass, Organomegaly - Rectal Exam Rectal Exam: Deferred - Extremities Exam Extremities Exam: absent: Calf Tenderness, Pedal Edema Assessment and Plan (1) Abdominal pain Assessment & Plan: Patient states that he has back pain as well, raising the possibility of neuropathic pain. The diverticular disease can also cause LLQ pain, but would not be expected to cause back or flank pain. Will request MRI. Status: Acute
--- NOTE | 2017-06-14 11:27 | CT ---
PROCEDURE: CT Lumbar Spine without contrast HISTORY: Back pain COMPARISON: Comparison is made with the previous CT of the abdomen and pelvis dated 06/09/2017 and 03/16/2017. TECHNIQUE: Axial computed tomography images were obtained of the lumbar spine without the use of intravenous contrast. Coronal and sagittal reformatted images were created and reviewed. Radiation dose: Total exam DLP = 638.62 mGy-cm. This CT exam was performed using one or more of the following dose reduction techniques: Automated exposure control, adjustment of the mA and/or kV according to patient size, and/or use of iterative reconstruction technique. FINDINGS: VERTEBRAE: No evidence of compression deformity or destructive bony lesion in the lumbar vertebrae. Mild to moderate diffuse osteopenia noted. Normal alignment of the lumbar vertebrae is noted. DISCS/SPINAL CANAL/NEURAL FORAMINA: L1-2: There is a small osteophyte disc bulge complex associated with posterior ligament and facet joint hypertrophy which resulting in mild spinal stenosis. L2-3: There is a small broad-based disc bulge associated with posterior ligament and facet joint hypertrophy which resulting in mild spinal stenosis. L3-4: There is a small broad-based disc bulge associated with posterior ligament and facet joint hypertrophy which resulting in mild spinal stenosis. L4-5: Small broad-based disc bulge is also noted associated with posterior ligament and facet joint hypertrophy which resulting in mild spinal stenosis. L5-S1: Small broad-based disc bulge noted without evidence of significant spinal or neural foraminal narrowing. PARASPINAL SOFT TISSUES: There is diffuse atherosclerotic calcification in the abdominal aorta. OTHER FINDINGS: None. IMPRESSION: No evidence of acute fracture or subluxation in the lumbar spine. No evidence of destructive bony lesion. Moderate degenerative disc changes/ spondylosis noted. Multilevel small broad-based disc bulge associated with posterior ligament and facet joint hypertrophy which resulting mild spinal stenosis.
[2017-06-15] MEDS: POLYETHYLENE GLYCOL 3350 17 GM/Dose PACKET PO SCH (09:46)
[2017-06-15] MEDS: Lactobacillus Acidophilus 500 MU Cap PO SCH ×2 (09:47→17:33)
--- NOTE | 2017-06-15 11:07 | CP.PCM.PN ---
Subjective - Date & Time of Evaluation Date of Evaluation: 06/15/17 Time of Evaluation: 11:04 - Subjective Subjective: Patient states that the pain is unchanged. He denies having nausea and vomiting. He has not had a bowel movement today. Objective - Vital Signs/Intake and Output Vital Signs (last 24 hours): Temp Pulse Resp BP Pulse Ox 98.5 F 60 20 118/70 97 06/15/17 09:39 06/15/17 09:39 06/15/17 09:39 06/15/17 09:39 06/15/17 09:39 Intake and Output: 06/15/17 06/15/17 06:59 18:59 Intake Total 150 Balance 150 - Medications Medications: Current Medications Amlodipine Besylate (Norvasc) 10 mg PO DAILY [facility] Last Admin: 06/15/17 09:48 Dose: 10 mg Clopidogrel Bisulfate (Plavix) 75 mg PO DAILY [facility] Last Admin: 06/15/17 09:48 Dose: 75 mg Dicyclomine HCl (Bentyl) 10 mg PO TID [facility] Last Admin: 06/15/17 09:47 Dose: 10 mg Famotidine (Pepcid) 20 mg IVP DAILY [facility] Last Admin: 06/15/17 09:48 Dose: 20 mg Glipizide (Glucotrol) 10 mg PO BID [facility] Last Admin: 06/15/17 09:47 Dose: 10 mg Heparin Sodium (Porcine) (Heparin) 5,000 units SC Q12 [facility] Last Admin: 06/15/17 09:47 Dose: 5,000 units Isosorbide Mononitrate (Imdur Er) 30 mg PO DAILY [facility] Last Admin: 06/15/17 09:48 Dose: 30 mg Lactobacillus Acidophilus (Bacid Acidophilus) 1 cap PO BID [facility] Last Admin: 06/15/17 09:47 Dose: 1 cap Losartan Potassium (Cozaar) 100 mg PO DAILY [facility] Last Admin: 06/15/17 09:47 Dose: 100 mg Polyethylene Glycol (Miralax) 17 gm PO DAILY [facility] Last Admin: 06/15/17 09:46 Dose: 17 gm Tamsulosin HCl (Flomax) 0.4 mg PO DAILY [facility] Last Admin: 06/15/17 09:47 Dose: 0.4 mg - Labs Labs: 06/13/17 08:27 06/13/17 08:27 - Constitutional Appears: No Acute Distress - Head Exam Head Exam: ATRAUMATIC, NORMOCEPHALIC - Eye Exam Eye Exam: EOMI, PERRL - Neck Exam Neck Exam: absent: Lymphadenopathy, Thyromegaly - Respiratory Exam Respiratory Exam: NORMAL BREATHING PATTERN. absent: Rales, Rhonchi, Wheezes - Cardiovascular Exam Cardiovascular Exam: REGULAR RHYTHM, +S1, +S2. absent: Gallop, Rubs, Murmur - GI/Abdominal Exam GI & Abdominal Exam: Soft, Normal Bowel Sounds. absent: Tenderness, Mass, Organomegaly - Rectal Exam Rectal Exam: Deferred - Extremities Exam Extremities Exam: absent: Calf Tenderness, Pedal Edema Assessment and Plan (1) Abdominal pain Assessment & Plan: Pain is essentially unchanged. Dicyclomine has not provided much relief. CT of lumbar spine showed moderate degenerative disc changes and mild spinal stenosis. Diffuse atherosclerotic calcification was noted in the abdominal aorta. MRI could not be performed because of the presence of a pacemaker. Contrast was not administered because of chronic kidney disease. Etiology of the pain may be symptomatic (painful) uncomplicated diverticular disease. Consider repeat colonoscopy, treatment with rifaximin Status: Acute
[2017-06-16] MEDS: Lactobacillus Acidophilus 500 MU Cap PO SCH ×2 (09:58→18:12)
[2017-06-16] MEDS: POLYETHYLENE GLYCOL 3350 17 GM/Dose PACKET PO SCH (10:00)
--- NOTE | 2017-06-16 13:32 | CP.PCM.PN ---
Subjective - Date & Time of Evaluation Date of Evaluation: 06/16/17 Time of Evaluation: 13:29 - Subjective Subjective: Patient states that the abdominal pain is unchanged. He again denies having nausea and vomiting. Objective - Vital Signs/Intake and Output Vital Signs (last 24 hours): Temp Pulse Resp BP Pulse Ox 98.8 F 67 20 141/78 95 06/16/17 08:10 06/16/17 08:10 06/16/17 08:10 06/16/17 08:10 06/16/17 08:10 Intake and Output: 06/16/17 06/16/17 06:59 18:59 Intake Total 540 Balance 540 - Medications Medications: Current Medications Amlodipine Besylate (Norvasc) 10 mg PO DAILY [facility] Last Admin: 06/16/17 09:59 Dose: 10 mg Clopidogrel Bisulfate (Plavix) 75 mg PO DAILY [facility] Last Admin: 06/16/17 09:58 Dose: 75 mg Dicyclomine HCl (Bentyl) 10 mg PO TID [facility] Last Admin: 06/16/17 13:07 Dose: 10 mg Famotidine (Pepcid) 20 mg IVP DAILY [facility] Last Admin: 06/16/17 09:58 Dose: 20 mg Glipizide (Glucotrol) 10 mg PO BID [facility] Last Admin: 06/16/17 09:59 Dose: 10 mg Isosorbide Mononitrate (Imdur Er) 30 mg PO DAILY [facility] Last Admin: 06/16/17 09:59 Dose: 30 mg Lactobacillus Acidophilus (Bacid Acidophilus) 1 cap PO BID [facility] Last Admin: 06/16/17 09:58 Dose: 1 cap Losartan Potassium (Cozaar) 100 mg PO DAILY [facility] Last Admin: 06/16/17 09:59 Dose: 100 mg Polyethylene Glycol (Miralax) 17 gm PO DAILY [facility] Last Admin: 06/16/17 10:00 Dose: 17 gm Tamsulosin HCl (Flomax) 0.4 mg PO DAILY [facility] Last Admin: 06/16/17 09:59 Dose: 0.4 mg - Labs Labs: 06/13/17 08:27 06/13/17 08:27 - Constitutional Appears: No Acute Distress - Head Exam Head Exam: ATRAUMATIC, NORMOCEPHALIC - Eye Exam Eye Exam: EOMI, PERRL - Neck Exam Neck Exam: absent: Lymphadenopathy, Thyromegaly - Respiratory Exam Respiratory Exam: NORMAL BREATHING PATTERN. absent: Rales, Rhonchi, Wheezes - Cardiovascular Exam Cardiovascular Exam: REGULAR RHYTHM, +S1, +S2. absent: Gallop, Rubs, Murmur - GI/Abdominal Exam GI & Abdominal Exam: Soft, Normal Bowel Sounds. absent: Tenderness, Mass, Organomegaly - Rectal Exam Rectal Exam: Deferred - Extremities Exam Extremities Exam: absent: Calf Tenderness, Pedal Edema Assessment and Plan (1) Abdominal pain Assessment & Plan: Pain is most likely due to symptomatic, uncomplicated diverticular disease. This may be managed with fiber and antispasmodics. Status: Acute
--- NOTE | 2017-06-16 18:13 | CP.PCM.PN ---
Subjective - Date & Time of Evaluation Date of Evaluation: 06/13/17 Time of Evaluation: 18:12 - Subjective Subjective: Patient continues to have abdominal pain, nausea, vomiting. Patient had upper endoscopy. We'll continue the IV fluid. Pain management. We'll follow the patient Objective - Vital Signs/Intake and Output Vital Signs (last 24 hours): Temp Pulse Resp BP Pulse Ox 98.5 F 65 20 115/70 97 06/16/17 15:00 06/16/17 15:00 06/16/17 15:00 06/16/17 15:00 06/16/17 15:00 Intake and Output: 06/16/17 06/16/17 06:59 18:59 Intake Total 540 600 Balance 540 600 - Medications Medications: Current Medications Amlodipine Besylate (Norvasc) 10 mg PO DAILY [facility] Last Admin: 06/16/17 09:59 Dose: 10 mg Clopidogrel Bisulfate (Plavix) 75 mg PO DAILY [facility] Last Admin: 06/16/17 09:58 Dose: 75 mg Dicyclomine HCl (Bentyl) 10 mg PO TID [facility] Last Admin: 06/16/17 13:07 Dose: 10 mg Famotidine (Pepcid) 20 mg IVP DAILY [facility] Last Admin: 06/16/17 09:58 Dose: 20 mg Glipizide (Glucotrol) 10 mg PO BID [facility] Last Admin: 06/16/17 09:59 Dose: 10 mg Heparin Sodium (Porcine) (Heparin) 5,000 units SC Q8 [facility] Isosorbide Mononitrate (Imdur Er) 30 mg PO DAILY [facility] Last Admin: 06/16/17 09:59 Dose: 30 mg Lactobacillus Acidophilus (Bacid Acidophilus) 1 cap PO BID [facility] Last Admin: 06/16/17 09:58 Dose: 1 cap Losartan Potassium (Cozaar) 100 mg PO DAILY [facility] Last Admin: 06/16/17 09:59 Dose: 100 mg Polyethylene Glycol (Miralax) 17 gm PO DAILY [facility] Last Admin: 06/16/17 10:00 Dose: 17 gm Rifaximin (Xifaxan) 550 mg PO BID [facility] Tamsulosin HCl (Flomax) 0.4 mg PO DAILY [facility] Last Admin: 06/16/17 09:59 Dose: 0.4 mg - Labs Labs: 06/13/17 08:27 06/13/17 08:27
--- NOTE | 2017-06-16 18:14 | CP.PCM.PN ---
Subjective - Date & Time of Evaluation Date of Evaluation: 06/13/17 Time of Evaluation: 18:13 - Subjective Subjective: Patient is receiving IV fluid Eating better. Nausea negative Vomiting negative Seen by medical doctor Continue the current treatment. Possible diverticulosis. But no evidence of diverticulitis Objective - Vital Signs/Intake and Output Vital Signs (last 24 hours): Temp Pulse Resp BP Pulse Ox 98.5 F 65 20 115/70 97 06/16/17 15:00 06/16/17 15:00 06/16/17 15:00 06/16/17 15:00 06/16/17 15:00 Intake and Output: 06/16/17 06/16/17 06:59 18:59 Intake Total 540 600 Balance 540 600 - Medications Medications: Current Medications Amlodipine Besylate (Norvasc) 10 mg PO DAILY [facility] Last Admin: 06/16/17 09:59 Dose: 10 mg Clopidogrel Bisulfate (Plavix) 75 mg PO DAILY [facility] Last Admin: 06/16/17 09:58 Dose: 75 mg Dicyclomine HCl (Bentyl) 10 mg PO TID [facility] Last Admin: 06/16/17 18:12 Dose: 10 mg Famotidine (Pepcid) 20 mg IVP DAILY [facility] Last Admin: 06/16/17 09:58 Dose: 20 mg Glipizide (Glucotrol) 10 mg PO BID [facility] Last Admin: 06/16/17 18:13 Dose: 10 mg Heparin Sodium (Porcine) (Heparin) 5,000 units SC Q8 [facility] Isosorbide Mononitrate (Imdur Er) 30 mg PO DAILY [facility] Last Admin: 06/16/17 09:59 Dose: 30 mg Lactobacillus Acidophilus (Bacid Acidophilus) 1 cap PO BID [facility] Last Admin: 06/16/17 18:12 Dose: 1 cap Losartan Potassium (Cozaar) 100 mg PO DAILY [facility] Last Admin: 06/16/17 09:59 Dose: 100 mg Polyethylene Glycol (Miralax) 17 gm PO DAILY [facility] Last Admin: 06/16/17 10:00 Dose: 17 gm Rifaximin (Xifaxan) 550 mg PO BID [facility] Last Admin: 06/16/17 18:13 Dose: 550 mg Tamsulosin HCl (Flomax) 0.4 mg PO DAILY [facility] Last Admin: 06/16/17 09:59 Dose: 0.4 mg - Labs Labs: 06/13/17 08:27 06/13/17 08:27
[2017-06-17 08:02] VITALS: BP 150/85; PULSE 69; TEMP 97.6; O2SAT 95
--- NOTE | 2017-06-17 08:35 | CP.PCM.PN ---
Subjective - Date & Time of Evaluation Date of Evaluation: 06/17/17 Time of Evaluation: 08:20 - Subjective Subjective: F?U abdom pain Reports less abdom pain. Reports BMS. Denies diarrhea, constip, RB, melena, fever, chills, [facility], cough, CP Objective - Vital Signs/Intake and Output Vital Signs (last 24 hours): Temp Pulse Resp BP Pulse Ox 97.6 F 69 20 150/85 95 06/17/17 08:00 06/17/17 08:00 06/17/17 08:00 06/17/17 08:00 06/17/17 08:00 Intake and Output: 06/17/17 06/17/17 06:59 18:59 Intake Total 400 150 Balance 400 150 - Medications Medications: Current Medications Amlodipine Besylate (Norvasc) 10 mg PO DAILY [facility] Last Admin: 06/16/17 09:59 Dose: 10 mg Clopidogrel Bisulfate (Plavix) 75 mg PO DAILY [facility] Last Admin: 06/16/17 09:58 Dose: 75 mg Dicyclomine HCl (Bentyl) 10 mg PO TID [facility] Last Admin: 06/16/17 18:12 Dose: 10 mg Famotidine (Pepcid) 20 mg IVP DAILY [facility] Last Admin: 06/16/17 09:58 Dose: 20 mg Glipizide (Glucotrol) 10 mg PO BID [facility] Last Admin: 06/16/17 18:13 Dose: 10 mg Heparin Sodium (Porcine) (Heparin) 5,000 units SC Q8 [facility] Last Admin: 06/17/17 07:22 Dose: 5,000 units Isosorbide Mononitrate (Imdur Er) 30 mg PO DAILY [facility] Last Admin: 06/16/17 09:59 Dose: 30 mg Lactobacillus Acidophilus (Bacid Acidophilus) 1 cap PO BID [facility] Last Admin: 06/16/17 18:12 Dose: 1 cap Losartan Potassium (Cozaar) 100 mg PO DAILY [facility] Last Admin: 06/16/17 09:59 Dose: 100 mg Polyethylene Glycol (Miralax) 17 gm PO DAILY [facility] Last Admin: 06/16/17 10:00 Dose: 17 gm Rifaximin (Xifaxan) 550 mg PO BID [facility] Last Admin: 06/16/17 18:13 Dose: 550 mg Tamsulosin HCl (Flomax) 0.4 mg PO DAILY [facility] Last Admin: 06/16/17 09:59 Dose: 0.4 mg - Labs Labs: 06/13/17 08:27 06/13/17 08:27 - Constitutional Appears: Well - Respiratory Exam Respiratory Exam: Clear to Ausculation Bilateral - Cardiovascular Exam Cardiovascular Exam: RRR - GI/Abdominal Exam GI & Abdominal Exam: Soft, Tenderness, Normal Bowel Sounds. absent: Guarding, Mass Additional comments: Minimal LLQ tenderness - Extremities Exam Extremities Exam: absent: Calf Tenderness - Neurological Exam Neurological Exam: Alert, Oriented x3 Assessment and Plan (1) Acute on chronic renal insufficiency Status: Acute (2) Abdominal pain Assessment & Plan: COnsider diverticular disease, constipation, or IBS. Pain is less. CT- no diverticulITIS. No colitis. Cont meds. Status: Acute (3) Diverticula of colon Status: Acute
[2017-06-17] MEDS: POLYETHYLENE GLYCOL 3350 17 GM/Dose PACKET PO SCH (09:13)
[2017-06-17] MEDS: Lactobacillus Acidophilus 500 MU Cap PO SCH (09:14)
--- NOTE | 2017-06-17 14:17 | CP.PCM.PN ---
Subjective - Date & Time of Evaluation Date of Evaluation: 06/17/17 Time of Evaluation: 14:17 - Subjective Subjective: CLEARED FOR D/C HOME TODAY. SEEN BY GI. PER DR. DOMINGUEZ, MAY CONTINUE XIFAXAN 550 MG PO BID X2 WEEKS. RX FOR ALL NEW GI MEDS SENT TO PT'S PHARMACY AND DISCUSSED WITH THE PT AT LENGTH. PT TO F/U WITH DR. ALVARADO OR DR. ENRIQUEZ IN THE OFFICE WITHIN 5-7 DAYS AND GI IN 10-14 DAYS. PT ALSO INSTRUCTED TO F/U WITH NEURO (DR. GOLDSTEIN) WHO SAW HIM HERE IN DECEMBER; UNSURE IF PT FOLLOWED UP OP AND HE CANNOT RECALL. PT STATES HE HAS HAD DIZZINESS ON/OFF FOR SEVERAL YEARS, HOWEVER, I DON'T THINK HE IS COMPLIANT WITH NEURO F/U APPTS. I NOTIFIED DR. ENRIQUEZ OF THIS AND RECOMMENDED THE PT F/U WITH NEURO THIS WEEK. I ALSO DISCUSSED AT LENGTH WITH HIM A GI AND DIVERTICULOSIS FRIENDLY DIET. SW TO ARRANGE TRANSPORTATION HOME TODAY. PT TO CONTINUE HIS ADULT DAY CARE MON-FRI. NO FURTHER ORDERS. SEGUIMIENTO CON EL DR. ALVARADO O DR. ENRIQUEZ EN LA OFICINA EN EL PLAZO DE 5-7 D DESPUS DE LA DESCARGA --- LLAME A LA OFICINA MAANA PARA HACER WOLFF JOSEE. SEGUIMIENTO CON EL DR. BOWERS (EL DOCTOR DE ESTMAGO) EN LA OFICINA EN EL PLAZO DE 10-14 STORM DESPUS DE LA DESCARGA --- LLAME A LA OFICINA DE MAANA PARA HACER WOLFF JOSEE. USTED NABOR UN EXAMEN COMPLETO PARA WOLFF MAREO JORGE L EL VERANO. TODOS LOS RESULTADOS FUERON DISCUTIDOS CON USTED OTRA VEZ HOY EN EL HOSPITAL. SI USTED FUE RECOMENDADO JORGE L JENNIFER TIEMPO, SIGUE CON EL DR. GOLDSTEIN (UN NEURLOGO) EN LA OFICINA. WOLFF INFORMACIN DE LA OFICINA SE LE PROPORCIONA NUEVAMENTE HOY PARA QUE PUEDA HACER GEORGE JOSEE DE SEGUIMIENTO Y DISCUTIR CUALQUIER NECESIDAD O PREOCUPACI N ADICIONAL. CONTINE TODOS LOS MEDICAMENTOS EN [facility]. LE HERNÁNDEZ PRESCRITO NUEVOS MEDICAMENTOS PARA AYUDAR CON WOLFF DOLOR ABDOMINAL (TODAS LAS PRESCRIPCIONES ENVIADAS A WOLFF FARMACIA Y PUEDE RECOGERLOS HOY): BENTYL 10 MG (1 TABLETA) POR BOCA DAVID VECES AL DA; MIRALAX 17 GM (1 PAQUETE MEZCLADO CON AGUA) BHAKTI POR LA BOCA GEORGE VEZ AL DA; BACID (1 CPSULA) POR BOCA DOS VECES AL D A. LE HERNÁNDEZ PRESCRITO UN ANTIBITICO PARA AYUDAR CON WOLFF DOLOR ABDOMINAL (LA PRESCRIPCIN ENVI A WOLFF FARMACIA Y PUEDE RECOGERLA HOY MISMO): XIFAXAN 550 MG ( 1 TABLETA) POR LA BOCA DOS VECES AL DA POR 2 SEMANAS. SEGN LAS RECOMENDACIONES DEL MDICO DEL ESTMAGO, COMA GEORGE RON RON EN FIBRA, ABUNDANTE DE HORTALIZAS Y FRUTAS, MANTNGASE HIDRATADO. NO COMA ALIMENTOS CON SEMILLAS Y PEQUEAS COSAS QUE PUEDAN CAUSAR INFLAMACIN A ABRAHAM INTESTINOS. SI TIENE ALGUNA OTRA PREGUNTA O PREOCUPACIN, PNGASE EN CONTACTO CON EL DR. ENRIQUEZ O DR. ALVARADO. FOLLOW UP WITH DR. ALVARADO OR DR. ENRIQUEZ IN THE OFFICE WITHIN 5-7 DAYS AFTER DISCHARGE---CALL THE OFFICE TOMORROW TO MAKE YOUR APPOINTMENT. FOLLOW UP WITH DR. BOWERS (THE STOMACH DOCTOR) IN THE OFFICE WITHIN 10-14 DAYS AFTER DISCHARGE---CALL THE OFFICE TOMORROW TO MAKE YOUR APPOINTMENT. YOU HAD A THOROUGH EXAM FOR YOUR DIZZINESS DURING THE SUMMER. ALL RESULTS WERE DISCUSSED WITH YOU AGAIN TODAY IN THE HOSPITAL. IF YOU IT WAS RECOMMENDED DURING THAT TIME THAT YOU FOLLOW UP WITH DR. GOLDSTEIN ( A NEUROLOGIST) IN THE OFFICE. HIS OFFICE INFORMATION IS BEING PROVIDED TO YOU AGAIN TODAY SO THAT YOU CAN MAKE A FOLLOW UP APPOINTMENT AND DISCUSS ANY FURTHER NEEDS OR CONCERNS. CONTINUE ALL HOME MEDICATIONS USUAL. YOU HAVE BEEN PRESCRIBED NEW MEDICATIONS TO HELP WITH YOUR ABDOMINAL PAIN (ALL PRESCRIPTIONS SENT TO YOUR PHARMACY AND YOU MAY PICK THEM UP TODAY): BENTYL 10 MG (1 TABLET) BY MOUTH THREE TIMES A DAY; MIRALAX 17 GM (1 PACKET MIXED WITH WATER) DRINK BY MOUTH ONCE A DAY; BACID (1 CAPSULE) BY MOUTH TWICE A DAY. YOU HAVE BEEN PRESCRIBED AN ANTIBIOTIC TO HELP WITH YOUR ABDOMINAL PAIN ( PRESCRIPTION SENT TO YOUR PHARMACY AND YOU MAY PICK IT UP TODAY): XIFAXAN 550 MG (1 TABLET) BY MOUTH TWICE A DAY FOR 2 WEEKS. PER THE STOMACH DOCTOR'S RECOMMENDATIONS, EAT A DIET HIGH IN FIBER, PLENTY OF VEGETABLES AND FRUITS, STAY HYDRATED. DO NOT EAT FOOD WITH SEEDS AND SMALL THINGS THAT CAN CAUSE INFLAMMATION TO YOUR INTESTINES. IF YOU HAVE ANY FURTHER QUESTIONS OR CONCERNS, CONTACT DR. ENRIQUEZ OR DR. ALVARADO. Objective - Vital Signs/Intake and Output Vital Signs (last 24 hours): Temp Pulse Resp BP Pulse Ox 97.6 F 69 20 150/85 95 06/17/17 08:00 06/17/17 08:00 06/17/17 08:00 06/17/17 08:00 06/17/17 08:00 Intake and Output: 06/17/17 06/17/17 06:59 18:59 Intake Total 400 150 Balance 400 150 - Medications Medications: Current Medications Amlodipine Besylate (Norvasc) 10 mg PO DAILY [facility] Last Admin: 06/16/17 09:59 Dose: 10 mg Clopidogrel Bisulfate (Plavix) 75 mg PO DAILY [facility] Last Admin: 06/17/17 09:15 Dose: 75 mg Dicyclomine HCl (Bentyl) 10 mg PO TID [facility] Last Admin: 06/17/17 13:42 Dose: 10 mg Famotidine (Pepcid) 20 mg IVP DAILY [facility] Last Admin: 06/17/17 09:14 Dose: 20 mg Glipizide (Glucotrol) 10 mg PO BID [facility] Last Admin: 06/17/17 09:15 Dose: 10 mg Heparin Sodium (Porcine) (Heparin) 5,000 units SC Q8 [facility] Last Admin: 06/17/17 13:43 Dose: 5,000 units Isosorbide Mononitrate (Imdur Er) 30 mg PO DAILY [facility] Last Admin: 06/17/17 09:14 Dose: 30 mg Lactobacillus Acidophilus (Bacid Acidophilus) 1 cap PO BID [facility] Last Admin: 06/17/17 09:14 Dose: 1 cap Losartan Potassium (Cozaar) 100 mg PO DAILY [facility] Last Admin: 06/17/17 09:15 Dose: 100 mg Polyethylene Glycol (Miralax) 17 gm PO DAILY [facility] Last Admin: 06/17/17 09:13 Dose: 17 gm Rifaximin (Xifaxan) 550 mg PO BID [facility] Last Admin: 06/17/17 09:14 Dose: 550 mg Tamsulosin HCl (Flomax) 0.4 mg PO DAILY [facility] Last Admin: 06/17/17 09:15 Dose: 0.4 mg - Labs Labs: 06/13/17 08:27 06/13/17 08:27
== END 2017-06-17 17:44 | disposition home or self-care (01) | DRG 392 ==
LOC: C.ER 12:23 → C.9E 16:56 → C.3T 17:53 → OBSVTOIN 06-10 15:14
PROVIDERS: ADMIT Internal Medicine; ATTEND Internal Medicine
PROC: 0DJ08ZZ Inspection of Upper Intestinal Tract, Via Natural or Artificial Opening Endoscopic (ICD-10-PCS; principal; 2017-06-12 12:24)
DX: K57.30 Diverticulosis of large intestine without perforation or abscess without bleeding (principal); E11.22 Type 2 diabetes mellitus with diabetic chronic kidney disease; D64.9 Anemia, unspecified; N28.9 Disorder of kidney and ureter, unspecified; E86.0 Dehydration; N18.9 Chronic kidney disease, unspecified; K29.70 Gastritis, unspecified, without bleeding; I12.9 Hypertensive chronic kidney disease with stage 1 through stage 4 chronic kidney disease, or unspecified chronic kidney disease; K59.09 Other constipation; M17.12 Unilateral primary osteoarthritis, left knee; Z90.49 Acquired absence of other specified parts of digestive tract; Z95.0 Presence of cardiac pacemaker

== ENCOUNTER 2017-06-22 15:57 | Inpatient (IN) | payer MEDICARE, MEDICAID ==
[2017-06-22 15:59] VITALS: BMI 29.6
[2017-06-22] MEDS ORDERED: Sodium Chloride 0.9% 1,000 ML IV ONE (16:47)
--- NOTE | 2017-06-22 16:50 | C.PDOC ---
History Of Present Illness Patient is an 87 y/o male, with a Hx of diverticulitis, HTN, who presents to the ED accompanied by his son for evaluation of worsening periumbilical pain for the past few days. As per son, the patient had similar symptoms for the past month and was recently admitted to the hospital. Pt describes pain as cramping " in the middle", localized, on-radiating and not related to food intake. Son admits, pt able tolerate PO well. Otherwise, patient denies fever, chills, CP{, SOB, dyspnea, palpitation, vomiting, diarrhea, UTI symptoms. Ambulate to Ed for evaluation, not in any apparent distress. FYI: Previous records from multiple ED vists review, Last visit was on 06/09/17 , pt was admitted to hospital with GI consult. Pt received CT abd/plevis on 03/24/17, 04/27/17, 06/09/17 and results review, no findings of acute diverticulitis or obstruction noted. Son is very concern now about CT and radiation. Time Seen by Provider: 06/22/17 16:15 Chief Complaint (Nursing): Abdominal Pain History Per: Patient History/Exam Limitations: no limitations Onset/Duration Of Symptoms: Days (few days), Worse Since Current Symptoms Are (Timing): Still Present Location Of Pain/Discomfort: Periumbilical Associated Symptoms: denies: Fever, Vomiting, Diarrhea, Urinary Symptoms Recent travel outside of the [place]: No Past Medical History Reviewed: Historical Data, Nursing Documentation, Vital Signs Vital Signs: Last Vital Signs Temp 97.2 F L 06/22/17 16:02 Pulse 72 06/22/17 16:02 Resp 22 06/22/17 16:02 BP 112/78 06/22/17 16:02 Pulse Ox 98 06/22/17 17:39 - Medical History PMH: Anemia, Anxiety, Arthritis (l knee, BACK), Diverticulitis, HTN Denies: Crohn's Disease, Gastritis, Gall Bladder Disease, HIV, Pancreatitis, Chronic Kidney Disease Surgical History: Cholecystectomy, Pacemaker - [facility] Procedures COLONOSCOPY (11/30/14) ENDOSC POLYPECTOMY OF LG INTEST (03/13/07) INSPECTION OF UPPER INTESTINAL TRACT, ENDO (06/10/17) Family History: States: Unknown Family Hx - Social History Hx Alcohol Use: No Hx Substance Use: No - Immunization History Hx Tetanus Toxoid Vaccination: No Hx Influenza Vaccination: Yes Hx Pneumococcal Vaccination: Yes Review Of Systems Except As Marked, All Systems Reviewed And Found Negative. Constitutional: Negative for: Fever Eyes: Negative for: Vision Change ENT: Negative for: Ear Discharge, Throat Pain Cardiovascular: Negative for: Chest Pain Respiratory: Negative for: Cough, Shortness of Breath, Wheezing Gastrointestinal: Positive for: Abdominal Pain (periumbilical). Negative for: Vomiting, Diarrhea, Melena, Hematochezia, Hematemesis Genitourinary: Negative for: Dysuria, Frequency Musculoskeletal: Negative for: Back Pain Skin: Negative for: Rash Neurological: Negative for: Headache, Dizziness Physical Exam - Physical Exam Appears: Well, Non-toxic, No Acute Distress Skin: Warm, No Rash Head: Normacephalic Eye(s): bilateral: PERRL Nose: No Flaring Oral Mucosa: Moist Throat: No Drooling Neck: Trachea Midline, Supple Cardiovascular: Rhythm Regular, No Murmur, No JVD Respiratory: No Decreased Breath Sounds, No Accessory Muscle Use, No Rales, No Rhonchi, No Wheezing Gastrointestinal/Abdominal: Soft, Tenderness (mild tenderness to umbilical area) , No Organomegaly, Distention (mild ), No Guarding, No Rebound Back: No CVA Tenderness Extremity: No Pedal Edema Neurological/Psych: Oriented x3, Normal Speech, Normal Cognition ED Course And Treatment - Laboratory Results Result Diagrams: 06/22/17 17:05 06/22/17 17:05 Lab Interpretation: No Changes Compared To Prior Results O2 Sat by Pulse Oximetry: 98 Pulse Ox Interpretation: Normal - Other Rad Abd 2 view X-Ray: Interpreted by Me, Viewed By Me Interpretation: (-) air-fluid level, gas pattern c/w constipation Progress Note: Abdomen xr, UA, and blood work ordered. Zofran, protonix, IV fluids, fleet enema administered. Blood work review and appears unchanged from previous admission. Abd xray (-) air-fluid level noted. Case discussed with , no CT requested at this time, admission with GI consult arranged. Disposition - Disposition Disposition: HOSPITALIZED Disposition Time: 17:26 - Clinical Impression Clinical Impression: Abdominal pain, Diverticulosis - Scribe Statement The provider has reviewed the documentation as recorded by the Scribe Nesha Green All medical record entries made by the Scribe were at my direction and personally dictated by me. I have reviewed the chart and agree that the record accurately reflects my personal performance of the history, physical exam, medical decision making, and the department course for this patient. I have also personally directed, reviewed, and agree with the discharge instructions and disposition.
[2017-06-22 17:08] LABS: BASO # 0.1 K/uL (0.0-0.2); BASO % 1.1 % (0.0-2.0); EOS # 0.2 K/uL (0.0-0.7); EOS % 3.8 % (0.0-4.0); HEMOGLOBIN 13.5 g/dL (12.0-18.0); LYMPH # 1.9 K/uL (1.0-4.3); LYMPH % 33.5 % (20.0-40.0); MEAN CELL VOLUME 89.7 fL (80.0-94.0); MEAN CORPUSCULAR HEMOGLOBIN 30.5 pg (27.0-31.0); MEAN PLATELET VOLUME 8.9 fL (7.2-11.7); MONO # 0.6 K/uL (0.0-0.8); NEUT # 2.9 K/uL (1.8-7.0); NEUT % 50.6 % (50.0-75.0); NRBC % 0.1 % (0.0-2.0); RBC 4.44 Mil/uL (4.40-5.90); RED CELL DISTRIBUTION WIDTH 14.1 % (11.5-14.5); WHITE BLOOD COUNT 5.7 K/uL (4.8-10.8)
[2017-06-22] MEDS ORDERED: Sodium Chloride 0.9% 1,000 ML ONE (17:09)
[2017-06-22 17:14] LABS: INR 1.2; PROTHROMBIN TIME 13.6 SECONDS (9.7-12.2)
[2017-06-22 17:21] LABS: ALB/GLOB RATIO 1.2 (1.0-2.1); ALBUMIN 3.9 g/dL (3.5-5.0); CALCIUM 7.7 mg/dl (8.6-10.4)
--- NOTE | 2017-06-22 18:33 | RAD ---
HISTORY: pain COMPARISON: No prior. FINDINGS: BOWEL: [id number] constipation. . No obstruction. No free air. BONES: Normal. OTHER FINDINGS: Multiple surgical clips seen at the right upper abdomen IMPRESSION: [id number] constipation. No evidence of SBO.
[2017-06-22 18:56] LABS: URINE BILIRUBIN NEGATIVE (NEGATIVE); URINE BLOOD NEGATIVE (NEGATIVE); URINE CLARITY Clear (Clear); URINE COLOR Yellow (YELLOW); URINE GLUCOSE (UA) NORMAL (Normal); URINE LEUKOCYTE ESTERASE NEG Leu/uL (Negative); URINE NITRATE NEGATIVE (NEGATIVE); URINE PROTEIN NEGATIVE (NEGATIVE); URINE UROBILINOGEN NORMAL mg/dL (0.2-1.0)
[2017-06-23] MEDS: Sodium Chloride 0.9% 1,000 ML IV SCH ×2 (11:33→20:31)
--- NOTE | 2017-06-23 14:27 | CP.PCM.CON ---
<Kassandra Ratliff - Last Filed: 06/23/17 14:36> History of Present Illness - History of Present Illness History of Present Illness: GI Fellow PGY4 Consult Note This is a 87yM with pmhx of HTN, HLD, DM, CKD, Sinus bradycardia s/p PPM 3yrs ago presenting with recurrent LUQ and periumbilical pain since January 2017. Pt reports a twisting pain that starts 20minutes after eating and nothing makes it better, pain also radiates to back and spine. Pt reports that when he is not eating he still has a dull ache but not as severe as eating. Denies any nausea or vomiting. Pt endorses a 10pound wt loss over 3 weeks but reports good appetite. Pt also reports he has 1-2BM daily that is regular but at certain times has constipation and takes stool softer. He reports [place] [facility] [place] did EGD/Colonoscopy in January 2017 for anemia and found only polyps Pt also sees Dr. Thomas and had an EGD 06/12/17 found to have gastritis, no biopsy, stool antigen for H.pylori was negative. Pt has had multiple admission since January 2017 and to recent June 17, 2017 and diagnosed with diverticulitis of sigmoid colon and treated with cipro/flagyl with no improvement. Recently dx with IBS and started on rifaxamin which he is still taking with no improvement. Pt has had CT A/P wo contrast due to renal disease showing mild thickening of sigmoid colon and stool in colon. Pt at the time of evaluation was having abdominal pain, left sided and appeared uncomfortable with mild relief with pain medication. ROS: A 12pt ROS was negative except as above. PmHx: As stated in HPI PsHx: Cholecystectomy 5yrs ago, PPM SHx: Denies tobacco, social drinker when younger, no drugs FHx: Denies pancreatic or colon cancer Past Patient History - Infectious Disease Hx of Infectious Diseases: None - Past Medical History & Family History Past Medical History?: Yes - Past Social History Smoking Status: Unknown If Ever Smoked - CARDIAC Hx Hypertension: Yes Hx Pacemaker: Yes - PULMONARY Hx Respiratory Disorders: No - NEUROLOGICAL Hx Neurological Disorder: No - HEENT Hx HEENT Problems: No - RENAL Hx Chronic Kidney Disease: No - ENDOCRINE/METABOLIC Hx Diabetes Mellitus Type 2: Yes - HEMATOLOGICAL/ONCOLOGICAL Hx Anemia: Yes Hx Human Immunodeficiency Virus (HIV): No - INTEGUMENTARY Hx Dermatological Problems: No - MUSCULOSKELETAL/RHEUMATOLOGICAL Hx Arthritis: Yes (l knee, BACK) - GASTROINTESTINAL Hx Crohn's Disease: No Hx Diverticulitis: Yes Hx Gall Bladder Disease: No Hx Gastritis: No Hx Pancreatitis: No - GENITOURINARY/GYNECOLOGICAL Hx Genitourinary Disorders: No - PSYCHIATRIC Hx Anxiety: Yes Hx Substance Use: No - SURGICAL HISTORY Hx Cholecystectomy: Yes - ANESTHESIA Hx Anesthesia: Yes Hx Anesthesia Reactions: No Hx Malignant Hyperthermia: No Meds Allergies/Adverse Reactions: Allergies Allergy/AdvReac Type Severity Reaction Status Date / Time No Known Allergies Allergy Verified 06/22/17 16:03 - Medications Medications: Current Medications Heparin Sodium (Porcine) (Heparin) 5,000 units SC Q12 [facility] Last Admin: 06/23/17 12:38 Dose: 5,000 units Sodium Chloride (Sodium Chloride 0.9%) 1,000 mls @ 100 mls/hr IV .Q10H [facility] Last Admin: 06/23/17 11:33 Dose: 100 mls/hr Pantoprazole Sodium (Protonix Inj) 40 mg IVP DAILY [facility] Last Admin: 06/23/17 11:33 Dose: 40 mg Physical Exam - Constitutional Appears: Non-toxic, No Acute Distress - Head Exam Head Exam: ATRAUMATIC, NORMAL INSPECTION, NORMOCEPHALIC - Eye Exam Eye Exam: EOMI, Normal appearance, PERRL - ENT Exam ENT Exam: Mucous Membranes Moist - Neck Exam Neck exam: Positive for: Normal Inspection - Respiratory Exam Respiratory Exam: Clear to Auscultation Bilateral, NORMAL BREATHING PATTERN - Cardiovascular Exam Cardiovascular Exam: RRR - GI/Abdominal Exam GI & Abdominal Exam: Guarding, Normal Bowel Sounds, Soft, Tenderness. absent: Diminished Bowel Sounds, Distended, Organomegaly, Rebound, Rigid - Rectal Exam Rectal Exam: Deferred - Extremities Exam Extremities exam: Positive for: full ROM, normal inspection - Back Exam Back exam: NORMAL INSPECTION - Neurological Exam Neurological exam: Alert, Oriented x3 - Psychiatric Exam Psychiatric exam: Normal Affect, Normal Mood - Skin Skin Exam: Dry, Intact, Normal Color, Warm Results - Vital Signs Recent Vital Signs: Last Vital Signs Temp 98 F 06/23/17 09:30 Pulse 73 06/23/17 09:30 Resp 20 06/23/17 09:30 BP 117/55 L 06/23/17 09:30 Pulse Ox 98 06/23/17 09:30 - Labs Result Diagrams: 06/22/17 17:05 06/22/17 17:05 Labs: Laboratory Results - last 24 hr 06/22/17 06/22/17 06/22/17 17:05 17:05 17:05 WBC 5.7 RBC 4.44 Hgb 13.5 Hct 39.9 MCV 89.7 MCH 30.5 MCHC 34.0 RDW 14.1 Plt Count 169 MPV 8.9 Neut % (Auto) 50.6 Lymph % (Auto) 33.5 Eagle % (Auto) 11.0 H Eos % (Auto) 3.8 Baso % (Auto) 1.1 Neut # 2.9 Lymph # 1.9 Eagle # 0.6 Eos # 0.2 Baso # 0.1 PT 13.6 H INR 1.2 APTT 26 Sodium 132 Potassium 4.6 Chloride 96 L Carbon Dioxide 22 Anion Gap 18 BUN 33 H Creatinine 2.0 H Est GFR ( Amer) 39 Est GFR (Non-Af Amer) 32 POC Glucose (mg/dL) Random Glucose 212 H Calcium 7.7 L Total Bilirubin 0.6 AST 18 ALT 23 Alkaline Phosphatase 53 Total Protein 7.2 Albumin 3.9 Globulin 3.3 Albumin/Globulin Ratio 1.2 Lipase 51 Urine Color Urine Clarity Urine pH Ur Specific [place] Urine Protein Urine Glucose (UA) Urine Ketones Urine Blood Urine Nitrate Urine Bilirubin Urine Urobilinogen Ur Leukocyte Esterase Urine WBC (Auto) Urine RBC (Auto) 06/22/17 06/22/17 06/23/17 18:46 22:26 08:20 WBC RBC Hgb Hct MCV MCH MCHC RDW Plt Count MPV Neut % (Auto) Lymph % (Auto) Eagle % (Auto) Eos % (Auto) Baso % (Auto) Neut # Lymph # Eagle # Eos # Baso # PT INR APTT Sodium Potassium Chloride Carbon Dioxide Anion Gap BUN Creatinine Est GFR ( Amer) Est GFR (Non-Af Amer) POC Glucose (mg/dL) 71 78 Random Glucose Calcium Total Bilirubin AST ALT Alkaline Phosphatase Total Protein Albumin Globulin Albumin/Globulin Ratio Lipase Urine Color Yellow Urine Clarity Clear Urine pH 6.0 Ur Specific [place] 1.018 Urine Protein Negative Urine Glucose (UA) Normal Urine Ketones Negative Urine Blood Negative Urine Nitrate Negative Urine Bilirubin Negative Urine Urobilinogen Normal Ur Leukocyte Esterase Neg Urine WBC (Auto) < 1 Urine RBC (Auto) < 1 06/23/17 12:32 WBC RBC Hgb Hct MCV MCH MCHC RDW Plt Count MPV Neut % (Auto) Lymph % (Auto) Eagle % (Auto) Eos % (Auto) Baso % (Auto) Neut # Lymph # Eagle # Eos # Baso # PT INR APTT Sodium Potassium Chloride Carbon Dioxide Anion Gap BUN Creatinine Est GFR ( Amer) Est GFR (Non-Af Amer) POC Glucose (mg/dL) 173 H Random Glucose Calcium Total Bilirubin AST ALT Alkaline Phosphatase Total Protein Albumin Globulin Albumin/Globulin Ratio Lipase Urine Color Urine Clarity Urine pH Ur Specific [place] Urine Protein Urine Glucose (UA) Urine Ketones Urine Blood Urine Nitrate Urine Bilirubin Urine Urobilinogen Ur Leukocyte Esterase Urine WBC (Auto) Urine RBC (Auto) Assessment & Plan - Assessment and Plan (Free Text) Assessment: This is a 87yM with pmhx of HTN, HLD, DM, SSS s/p PPM, CKD, presenting with complaints of chronic abdominal pain worse after eating. 1. Abdominal pain radiating to back 2. Reported unintentional weightloss Plan: -Continue supportive care with pain control -Pt having abdominal pain after eating, CT reviewed with aortic calcification, will order Duplex abdominal US to evaluate Celiac artery and SMA for possible chronic mesenteric ischemia -CT and clinical presentation not consistent with acute diverticulitis -Pt unable to get IV contrast due to CKD -Clear liquid diet -Plan for EUS on Friday to evaluate pancreas with pain radiating to back and reported unintentional weightloss -Will continue to follow closely <Ray Gaspar - Last Filed: 06/23/17 15:38> Meds - Medications Medications: Current Medications Amitriptyline HCl (Elavil) 10 mg PO HS [facility] Heparin Sodium (Porcine) (Heparin) 5,000 units SC Q12 [facility] Last Admin: 06/23/17 12:38 Dose: 5,000 units Sodium Chloride (Sodium Chloride 0.9%) 1,000 mls @ 100 mls/hr IV .Q10H [facility] Last Admin: 06/23/17 11:33 Dose: 100 mls/hr Pantoprazole Sodium (Protonix Inj) 40 mg IVP DAILY [facility] Last Admin: 06/23/17 11:33 Dose: 40 mg Polyethylene Glycol (Miralax) 17 gm PO DAILY [facility] Results - Vital Signs Recent Vital Signs: Last Vital Signs Temp 98 F 06/23/17 09:30 Pulse 73 06/23/17 09:30 Resp 20 06/23/17 09:30 BP 117/55 L 06/23/17 09:30 Pulse Ox 98 06/23/17 09:30 - Labs Result Diagrams: 06/22/17 17:05 06/22/17 17:05 Labs: Laboratory Results - last 24 hr 06/22/17 06/22/17 06/22/17 17:05 17:05 17:05 WBC 5.7 RBC 4.44 Hgb 13.5 Hct 39.9 MCV 89.7 MCH 30.5 MCHC 34.0 RDW 14.1 Plt Count 169 MPV 8.9 Neut % (Auto) 50.6 Lymph % (Auto) 33.5 Eagle % (Auto) 11.0 H Eos % (Auto) 3.8 Baso % (Auto) 1.1 Neut # 2.9 Lymph # 1.9 Eagle # 0.6 Eos # 0.2 Baso # 0.1 PT 13.6 H INR 1.2 APTT 26 Sodium 132 Potassium 4.6 Chloride 96 L Carbon Dioxide 22 Anion Gap 18 BUN 33 H Creatinine 2.0 H Est GFR ( Amer) 39 Est GFR (Non-Af Amer) 32 POC Glucose (mg/dL) Random Glucose 212 H Calcium 7.7 L Total Bilirubin 0.6 AST 18 ALT 23 Alkaline Phosphatase 53 Total Protein 7.2 Albumin 3.9 Globulin 3.3 Albumin/Globulin Ratio 1.2 Lipase 51 Urine Color Urine Clarity Urine pH Ur Specific [place] Urine Protein Urine Glucose (UA) Urine Ketones Urine Blood Urine Nitrate Urine Bilirubin Urine Urobilinogen Ur Leukocyte Esterase Urine WBC (Auto) Urine RBC (Auto) 06/22/17 06/22/17 06/23/17 18:46 22:26 08:20 WBC RBC Hgb Hct MCV MCH MCHC RDW Plt Count MPV Neut % (Auto) Lymph % (Auto) Eagle % (Auto) Eos % (Auto) Baso % (Auto) Neut # Lymph # Eagle # Eos # Baso # PT INR APTT Sodium Potassium Chloride Carbon Dioxide Anion Gap BUN Creatinine Est GFR ( Amer) Est GFR (Non-Af Amer) POC Glucose (mg/dL) 71 78 Random Glucose Calcium Total Bilirubin AST ALT Alkaline Phosphatase Total Protein Albumin Globulin Albumin/Globulin Ratio Lipase Urine Color Yellow Urine Clarity Clear Urine pH 6.0 Ur Specific [place] 1.018 Urine Protein Negative Urine Glucose (UA) Normal Urine Ketones Negative Urine Blood Negative Urine Nitrate Negative Urine Bilirubin Negative Urine Urobilinogen Normal Ur Leukocyte Esterase Neg Urine WBC (Auto) < 1 Urine RBC (Auto) < 1 06/23/17 12:32 WBC RBC Hgb Hct MCV MCH MCHC RDW Plt Count MPV Neut % (Auto) Lymph % (Auto) Eagle % (Auto) Eos % (Auto) Baso % (Auto) Neut # Lymph # [place] # Eos # Baso # PT INR APTT Sodium Potassium Chloride Carbon Dioxide Anion Gap BUN Creatinine Est GFR ( Amer) Est GFR (Non-Af Amer) POC Glucose (mg/dL) 173 H Random Glucose Calcium Total Bilirubin AST ALT Alkaline Phosphatase Total Protein Albumin Globulin Albumin/Globulin Ratio Lipase Urine Color Urine Clarity Urine pH Ur Specific [place] Urine Protein Urine Glucose (UA) Urine Ketones Urine Blood Urine Nitrate Urine Bilirubin Urine Urobilinogen Ur Leukocyte Esterase Urine WBC (Auto) Urine RBC (Auto) Attending/Attestation - Attestation I have personally seen and examined this patient.: Yes I have fully participated in the care of the patient.: Yes I have reviewed all pertinent clinical information: Yes Notes (Text): 06/23/17 15:37 87 year old male who presents with recurrent LUQ abdominal pain radiating to the back, post prandial, and associated with weight loss. Asked for second opinion/possible EUS. 1. Abdominal pain 2. Weight loss Plan: -plan for EUS friday to r/o panc mass -recommend mesenteric dopplers in the meantime to eval for chronic mesenteric ischemia
--- NOTE | 2017-06-23 15:03 | CP.PCM.CON ---
History of Present Illness - History of Present Illness History of Present Illness: CC: Abdominal pain Patient is well known to me from multiple hospital admissions for abdominal pain. Sees Dr Richards at [facility] [place], and has undergone recent colonoscopy with him. Patient admitted again after recent discharge for upper abdominal pain, constant , squeezing, unrelieved by trials of bentyl or Rifaximin. CT has shown diverticulosis without diverticulitis recently. Labwork normal. Recent EGD essentially unremarkable. Review of Systems - Constitutional Constitutional: Weight Loss, Weakness - Cardiovascular Cardiovascular: absent: Chest Pain - Gastrointestinal Gastrointestinal: Abdominal Pain, Constipation Past Patient History - Infectious Disease Hx of Infectious Diseases: None - Past Medical History & Family History Past Medical History?: Yes - Past Social History Smoking Status: Unknown If Ever Smoked - CARDIAC Hx Hypertension: Yes Hx Pacemaker: Yes - PULMONARY Hx Respiratory Disorders: No - NEUROLOGICAL Hx Neurological Disorder: No - HEENT Hx HEENT Problems: No - RENAL Hx Chronic Kidney Disease: No - ENDOCRINE/METABOLIC Hx Diabetes Mellitus Type 2: Yes - HEMATOLOGICAL/ONCOLOGICAL Hx Anemia: Yes Hx Human Immunodeficiency Virus (HIV): No - INTEGUMENTARY Hx Dermatological Problems: No - MUSCULOSKELETAL/RHEUMATOLOGICAL Hx Arthritis: Yes (l knee, BACK) - GASTROINTESTINAL Hx Crohn's Disease: No Hx Diverticulitis: Yes Hx Gall Bladder Disease: No Hx Gastritis: No Hx Pancreatitis: No - GENITOURINARY/GYNECOLOGICAL Hx Genitourinary Disorders: No - PSYCHIATRIC Hx Anxiety: Yes Hx Substance Use: No - SURGICAL HISTORY Hx Cholecystectomy: Yes - ANESTHESIA Hx Anesthesia: Yes Hx Anesthesia Reactions: No Hx Malignant Hyperthermia: No Meds Allergies/Adverse Reactions: Allergies Allergy/AdvReac Type Severity Reaction Status Date / Time No Known Allergies Allergy Verified 06/22/17 16:03 - Medications Medications: Current Medications Heparin Sodium (Porcine) (Heparin) 5,000 units SC Q12 [facility] Last Admin: 06/23/17 12:38 Dose: 5,000 units Sodium Chloride (Sodium Chloride 0.9%) 1,000 mls @ 100 mls/hr IV .Q10H [facility] Last Admin: 06/23/17 11:33 Dose: 100 mls/hr Pantoprazole Sodium (Protonix Inj) 40 mg IVP DAILY [facility] Last Admin: 06/23/17 11:33 Dose: 40 mg Physical Exam - Constitutional Appears: Well, No Acute Distress - Head Exam Head Exam: NORMOCEPHALIC - Eye Exam Eye Exam: absent: Scleral icterus - Neck Exam Neck exam: Positive for: Normal Inspection - Respiratory Exam Respiratory Exam: NORMAL BREATHING PATTERN - Cardiovascular Exam Cardiovascular Exam: REGULAR RHYTHM - GI/Abdominal Exam GI & Abdominal Exam: Normal Bowel Sounds. absent: Distended, Mass, Rebound, Tenderness Results - Vital Signs Recent Vital Signs: Last Vital Signs Temp 98 F 06/23/17 09:30 Pulse 73 06/23/17 09:30 Resp 20 06/23/17 09:30 BP 117/55 L 06/23/17 09:30 Pulse Ox 98 06/23/17 09:30 - Labs Result Diagrams: 06/22/17 17:05 06/22/17 17:05 Labs: Laboratory Results - last 24 hr 06/22/17 06/22/17 06/22/17 17:05 17:05 17:05 WBC 5.7 RBC 4.44 Hgb 13.5 Hct 39.9 MCV 89.7 MCH 30.5 MCHC 34.0 RDW 14.1 Plt Count 169 MPV 8.9 Neut % (Auto) 50.6 Lymph % (Auto) 33.5 Hand % (Auto) 11.0 H Eos % (Auto) 3.8 Baso % (Auto) 1.1 Neut # 2.9 Lymph # 1.9 Hand # 0.6 Eos # 0.2 Baso # 0.1 PT 13.6 H INR 1.2 APTT 26 Sodium 132 Potassium 4.6 Chloride 96 L Carbon Dioxide 22 Anion Gap 18 BUN 33 H Creatinine 2.0 H Est GFR ( Amer) 39 Est GFR (Non-Af Amer) 32 POC Glucose (mg/dL) Random Glucose 212 H Calcium 7.7 L Total Bilirubin 0.6 AST 18 ALT 23 Alkaline Phosphatase 53 Total Protein 7.2 Albumin 3.9 Globulin 3.3 Albumin/Globulin Ratio 1.2 Lipase 51 Urine Color Urine Clarity Urine pH Ur Specific [place] Urine Protein Urine Glucose (UA) Urine Ketones Urine Blood Urine Nitrate Urine Bilirubin Urine Urobilinogen Ur Leukocyte Esterase Urine WBC (Auto) Urine RBC (Auto) 06/22/17 06/22/17 06/23/17 18:46 22:26 08:20 WBC RBC Hgb Hct MCV MCH MCHC RDW Plt Count MPV Neut % (Auto) Lymph % (Auto) Hand % (Auto) Eos % (Auto) Baso % (Auto) Neut # Lymph # Hand # Eos # Baso # PT INR APTT Sodium Potassium Chloride Carbon Dioxide Anion Gap BUN Creatinine Est GFR ( Amer) Est GFR (Non-Af Amer) POC Glucose (mg/dL) 71 78 Random Glucose Calcium Total Bilirubin AST ALT Alkaline Phosphatase Total Protein Albumin Globulin Albumin/Globulin Ratio Lipase Urine Color Yellow Urine Clarity Clear Urine pH 6.0 Ur Specific [place] 1.018 Urine Protein Negative Urine Glucose (UA) Normal Urine Ketones Negative Urine Blood Negative Urine Nitrate Negative Urine Bilirubin Negative Urine Urobilinogen Normal Ur Leukocyte Esterase Neg Urine WBC (Auto) < 1 Urine RBC (Auto) < 1 06/23/17 12:32 WBC RBC Hgb Hct MCV MCH MCHC RDW Plt Count MPV Neut % (Auto) Lymph % (Auto) Hand % (Auto) Eos % (Auto) Baso % (Auto) Neut # Lymph # Hand # Eos # Baso # PT INR APTT Sodium Potassium Chloride Carbon Dioxide Anion Gap BUN Creatinine Est GFR ( Amer) Est GFR (Non-Af Amer) POC Glucose (mg/dL) 173 H Random Glucose Calcium Total Bilirubin AST ALT Alkaline Phosphatase Total Protein Albumin Globulin Albumin/Globulin Ratio Lipase Urine Color Urine Clarity Urine pH Ur Specific [place] Urine Protein Urine Glucose (UA) Urine Ketones Urine Blood Urine Nitrate Urine Bilirubin Urine Urobilinogen Ur Leukocyte Esterase Urine WBC (Auto) Urine RBC (Auto) Assessment & Plan (1) Abdominal pain Assessment and Plan: Chronic pain Extensive Workup negative Will check Dopplers of celiac and Mesenteric axis (MRA or CT can not be done due to pacemaker and renal disease respectively) Stop Rifaximin and Bentyl Try Elavil GI Fellow note reviewed and there is mention of EUS being planned. I agree with this. Status: Acute (2) Diverticulosis Assessment and Plan: Stable Status: Acute (3) Constipation Assessment and Plan: Chronic will order laxative Status: Acute - Date & Time Date: 06/23/17 Time: 15:06
[2017-06-23] MEDS: POLYETHYLENE GLYCOL 3350 17 GM/Dose PACKET PO SCH (17:40)
[2017-06-23 18:42] VITALS: RESP 20
[2017-06-24] MEDS: POLYETHYLENE GLYCOL 3350 17 GM/Dose PACKET PO SCH (11:00)
[2017-06-24] MEDS: Pantoprazole 40 mg EC Tab PO SCH (11:01)
[2017-06-24] MEDS: Sodium Chloride 0.9% 1,000 ML IV SCH ×3 (13:28→19:15)
--- NOTE | 2017-06-24 18:36 | CP.PCM.HP ---
Past Patient History - Infectious Disease Hx of Infectious Diseases: None - Past Medical History & Family History Past Medical History?: Yes - Past Social History Smoking Status: Never Smoked - CARDIAC Hx Hypertension: Yes Hx Pacemaker: Yes (3 years ago) - PULMONARY Hx Respiratory Disorders: No - NEUROLOGICAL Hx Neurological Disorder: No - HEENT Hx HEENT Problems: No - RENAL Hx Chronic Kidney Disease: No - ENDOCRINE/METABOLIC Hx Diabetes Mellitus Type 2: Yes - HEMATOLOGICAL/ONCOLOGICAL Hx Anemia: Yes Hx Human Immunodeficiency Virus (HIV): No - INTEGUMENTARY Hx Dermatological Problems: No - MUSCULOSKELETAL/RHEUMATOLOGICAL Hx Arthritis: Yes (l knee, BACK) Hx Falls: Yes (3 days ago) - GASTROINTESTINAL Hx Crohn's Disease: No Hx Diverticulitis: Yes Hx Gall Bladder Disease: No Hx Gastritis: No Hx Pancreatitis: No - GENITOURINARY/GYNECOLOGICAL Hx Genitourinary Disorders: No - PSYCHIATRIC Hx Anxiety: Yes Hx Substance Use: No - SURGICAL HISTORY Hx Cholecystectomy: Yes - ANESTHESIA Hx Anesthesia: Yes Hx Anesthesia Reactions: No Hx Malignant Hyperthermia: No Has any member of the family had a problem w/ anesthesia?: No Meds Allergies/Adverse Reactions: Allergies Allergy/AdvReac Type Severity Reaction Status Date / Time No Known Allergies Allergy Verified 06/22/17 16:03 Results - Vital Signs Recent Vital Signs: Last Vital Signs Temp 97 F L 06/24/17 16:00 Pulse 71 06/24/17 16:00 Resp 20 06/24/17 16:00 BP 148/76 06/24/17 16:00 Pulse Ox 96 06/24/17 16:00 - Labs Result Diagrams: 06/22/17 17:05 06/22/17 17:05 Labs: Laboratory Results - last 24 hr 06/23/17 06/24/17 06/24/17 21:01 07:02 11:10 POC Glucose (mg/dL) 165 H 96 185 H 06/24/17 16:47 POC Glucose (mg/dL) 94
[2017-06-25] MEDS: Sodium Chloride 0.9% 1,000 ML IV SCH ×3 (03:52→21:46)
[2017-06-25 07:23] LABS: INR 1.2; PROTHROMBIN TIME 13.2 SECONDS (9.7-12.2)
[2017-06-25 07:26] LABS: HEMOGLOBIN 14.3 g/dL (12.0-18.0); MEAN CORPUSCULAR HEMOGLOBIN 30.4 pg (27.0-31.0); MEAN CORPUSCULAR HGB CONC 33.7 g/dL (33.0-37.0); MEAN PLATELET VOLUME 8.7 fL (7.2-11.7); RBC 4.7 Mil/uL (4.40-5.90); RED CELL DISTRIBUTION WIDTH 13.9 % (11.5-14.5)
[2017-06-25 08:43] LABS: ALBUMIN 3.5 g/dL (3.5-5.0); ALT/SGPT 22 U/L (21-72); AST/SGOT 22 U/L (17-59); BLOOD UREA NITROGEN 15 mg/dL (9-20); GFR AFRICAN-AMERICAN > 60; GFR NON-AFRICAN AMERICAN 52
[2017-06-25] MEDS: Pantoprazole 40 mg EC Tab PO SCH (10:56)
[2017-06-25] MEDS: POLYETHYLENE GLYCOL 3350 17 GM/Dose PACKET PO SCH (10:56)
--- NOTE | 2017-06-25 11:14 | VASCLAB ---
PROCEDURE: HISTORY: Abdominal pain, evaluate Celiac, SMA for chronic mesenteric ischemia COMPARISON: None available. TECHNIQUE: Grayscale and duplex Doppler evaluation of the mesenteric arteries. Report prepared by ALESHA Tinoco, RVT FINDINGS: * Suprarenal: Peak Systolic Velocity - 119: Doppler Waveform: Triphasic.: EDV- 0 * Celiac: o Proximal Celiac : Peak Systolic Velocity - 354 : Doppler Waveform: Stenotic: EDV- 80 o Distal Celiac: Peak Systolic Velocity - 344: Doppler Waveform: Stenotic.: EDV- 81 * Proximal Hepatic: Peak Systolic Velocity - 142: Doppler Waveform: Biphasic: EDV- 16 * Proximal Splenic: Peak Systolic Velocity - 247: Doppler Waveform: Stenotic EDV- 51 * Mesenteric o Proximal Superior Mesenteric: Peak Systolic Velocity - 172: Doppler Waveform: Triphasic.: EDV- 29 o Mid Superior Mesenteric: Peak Systolic Velocity - 114: Doppler Waveform: Triphasic.: EDV- 15 o Distal Superior Mesenteric: Peak Systolic Velocity - 147: Doppler Waveform: Triphasic.: EDV- 17 o Proximal Inferior Mesenteric: Peak Systolic Velocity - 292: Doppler Waveform: Stenotic.: EDV- 59 OTHER FINDINGS: Normal velocities within the hepatic artery, superior mesenteric artery, and abdominal aorta. IMPRESSION: Hemodynamically significant stenosis of the celiac, splenic and inferior mesenteric arteries.
--- NOTE | 2017-06-25 11:42 | CP.PCM.PN ---
Subjective - Date & Time of Evaluation Date of Evaluation: 06/25/17 Time of Evaluation: 11:40 - Subjective Subjective: CC: abdominal pain Abdominal pain unchanged Celiac and SMA Dopllers done yesterday but not interpreted yet ?EUS planned too? Objective - Vital Signs/Intake and Output Vital Signs (last 24 hours): Temp Pulse Resp BP Pulse Ox 97.5 F L 67 20 158/88 H 95 06/25/17 08:00 06/25/17 08:00 06/25/17 08:00 06/25/17 08:00 06/25/17 08:00 Intake and Output: 06/25/17 06/25/17 06:59 18:59 Intake Total 950 Output Total 600 Balance 350 - Medications Medications: Current Medications Amitriptyline HCl (Elavil) 10 mg PO [facility] Last Admin: 06/24/17 22:36 Dose: 10 mg Sodium Chloride (Sodium Chloride 0.9%) 1,000 mls @ 50 mls/hr IV .Q20H [facility] Last Admin: 06/25/17 03:52 Dose: 50 mls/hr Pantoprazole Sodium (Protonix Ec Tab) 40 mg PO DAILY [facility] Last Admin: 06/25/17 10:56 Dose: Not Given Polyethylene Glycol (Miralax) 17 gm PO DAILY [facility] Last Admin: 06/25/17 10:56 Dose: Not Given Rosuvastatin Calcium (Crestor) 5 mg PO [facility] Last Admin: 06/24/17 22:36 Dose: 5 mg - Labs Labs: 06/25/17 07:12 06/25/17 07:12 PT 13.2 SECONDS (9.7-12.2) H 06/25/17 07:12 INR 1.2 06/25/17 07:12 APTT 26 SECONDS (21-34) 06/22/17 17:05 - Constitutional Appears: Well, No Acute Distress - Head Exam Head Exam: NORMOCEPHALIC - Respiratory Exam Respiratory Exam: NORMAL BREATHING PATTERN - Cardiovascular Exam Cardiovascular Exam: REGULAR RHYTHM - GI/Abdominal Exam GI & Abdominal Exam: Soft, Tenderness. absent: Distended, Guarding, Rigid, Mass , Rebound Assessment and Plan (1) Abdominal pain Assessment & Plan: vascular workup in progress Trial of Elavil Status: Acute (2) Diverticulosis Status: Acute (3) Constipation Assessment & Plan: Miralax for constipation Had Colonoscopy within the past year Status: Acute
--- NOTE | 2017-06-25 19:48 | CP.PCM.PN ---
Subjective - Date & Time of Evaluation Date of Evaluation: 06/25/17 Time of Evaluation: 19:46 - Subjective Subjective: pt is feeling better no nause no vomiting but pain on eating vitals stable severely limited flow splancnic will need IR eval pt has chronic renal failure high risk for renal failure will get REnal eval ivf will f/u Objective - Vital Signs/Intake and Output Vital Signs (last 24 hours): Temp Pulse Resp BP Pulse Ox 97.9 F 60 20 148/83 96 06/25/17 16:00 06/25/17 16:00 06/25/17 16:00 06/25/17 17:32 06/25/17 16:00 Intake and Output: 06/25/17 06/26/17 18:59 06:59 Intake Total 240 Balance 240 - Medications Medications: Current Medications Amitriptyline HCl (Elavil) 10 mg PO HS [facility] Last Admin: 06/24/17 22:36 Dose: 10 mg Sodium Chloride (Sodium Chloride 0.9%) 1,000 mls @ 50 mls/hr IV .Q20H [facility] Last Admin: 06/25/17 03:52 Dose: 50 mls/hr Pantoprazole Sodium (Protonix Ec Tab) 40 mg PO DAILY [facility] Last Admin: 06/25/17 10:56 Dose: Not Given Polyethylene Glycol (Miralax) 17 gm PO DAILY [facility] Last Admin: 06/25/17 10:56 Dose: Not Given Rosuvastatin Calcium (Crestor) 5 mg PO HS [facility] Last Admin: 06/24/17 22:36 Dose: 5 mg - Labs Labs: 06/25/17 07:12 06/25/17 07:12 PT 13.2 SECONDS (9.7-12.2) H 06/25/17 07:12 INR 1.2 06/25/17 07:12 APTT 26 SECONDS (21-34) 06/22/17 17:05
[2017-06-26] MEDS: Pantoprazole 40 mg EC Tab PO SCH (11:00)
[2017-06-26] MEDS: POLYETHYLENE GLYCOL 3350 17 GM/Dose PACKET PO SCH (11:00)
[2017-06-26] MEDS: Sodium Chloride 0.9% 1,000 ML IV SCH ×2 (11:00→18:01)
--- NOTE | 2017-06-26 11:01 | CP.PCM.PN ---
Subjective - Date & Time of Evaluation Date of Evaluation: 06/26/17 Time of Evaluation: 10:59 - Subjective Subjective: F/U abdom pain Son present Still abdom pain. Denies RB, melena, diarrhea, fever, vomiting, hematuria, hemopotysis Objective - Vital Signs/Intake and Output Vital Signs (last 24 hours): Temp Pulse Resp BP Pulse Ox 97.8 F 56 L 20 156/89 H 96 06/26/17 07:56 06/26/17 07:56 06/26/17 07:56 06/26/17 07:56 06/26/17 07:56 Intake and Output: 06/26/17 06/26/17 06:59 18:59 Intake Total 700 Balance 700 - Medications Medications: Current Medications Amitriptyline HCl (Elavil) 10 mg PO HS [facility] Last Admin: 06/25/17 21:41 Dose: 10 mg Sodium Chloride (Sodium Chloride 0.9%) 1,000 mls @ 50 mls/hr IV .Q20H [facility] Last Admin: 06/25/17 21:46 Dose: 50 mls/hr Pantoprazole Sodium (Protonix Ec Tab) 40 mg PO DAILY [facility] Last Admin: 06/25/17 10:56 Dose: Not Given Polyethylene Glycol (Miralax) 17 gm PO DAILY [facility] Last Admin: 06/25/17 10:56 Dose: Not Given Rosuvastatin Calcium (Crestor) 5 mg PO HS [facility] Last Admin: 06/25/17 21:41 Dose: 5 mg - Labs Labs: 06/25/17 07:12 06/25/17 07:12 PT 13.2 SECONDS (9.7-12.2) H 06/25/17 07:12 INR 1.2 06/25/17 07:12 APTT 26 SECONDS (21-34) 06/22/17 17:05 - Constitutional Appears: Well - Respiratory Exam Respiratory Exam: Clear to Ausculation Bilateral - Cardiovascular Exam Cardiovascular Exam: RRR - GI/Abdominal Exam GI & Abdominal Exam: Soft, Tenderness, Normal Bowel Sounds. absent: Guarding, Mass, Rebound Assessment and Plan (1) Abdominal pain Assessment & Plan: Dopplers reportedly positive. Consider vascular source for abdominal pain. Rec- vascular evaluation and treatment. Avoid constipation. Status: Acute (2) Diverticulosis Status: Acute
--- NOTE | 2017-06-26 18:52 | CP.PCM.PN ---
Subjective - Date & Time of Evaluation Date of Evaluation: 06/26/17 Time of Evaluation: 18:51 - Subjective Subjective: spoke to Dr.David Durant pt needs CT angio his basal creatinine on the high side angiogram will increase the or worsens the renal function will get nephrology eval as needed ivf vascular consult if needed Objective - Vital Signs/Intake and Output Vital Signs (last 24 hours): Temp Pulse Resp BP Pulse Ox 97.3 F L 70 20 172/94 H 94 L 06/26/17 16:00 06/26/17 17:39 06/26/17 16:00 06/26/17 17:39 06/26/17 16:00 Intake and Output: 06/26/17 06/26/17 06:59 18:59 Intake Total 700 800 Balance 700 800 - Medications Medications: Current Medications Amitriptyline HCl (Elavil) 10 mg PO HS [facility] Last Admin: 06/25/17 21:41 Dose: 10 mg Sodium Chloride (Sodium Chloride 0.9%) 1,000 mls @ 50 mls/hr IV .Q20H [facility] Last Admin: 06/26/17 18:01 Dose: 50 mls/hr Pantoprazole Sodium (Protonix Ec Tab) 40 mg PO DAILY [facility] Last Admin: 06/26/17 11:00 Dose: 40 mg Polyethylene Glycol (Miralax) 17 gm PO DAILY [facility] Last Admin: 06/26/17 11:00 Dose: 17 gm Rosuvastatin Calcium (Crestor) 5 mg PO HS [facility] Last Admin: 06/25/17 21:41 Dose: 5 mg - Labs Labs: 06/25/17 07:12 06/25/17 07:12 PT 13.2 SECONDS (9.7-12.2) H 06/25/17 07:12 INR 1.2 06/25/17 07:12 APTT 26 SECONDS (21-34) 06/22/17 17:05
[2017-06-27] MEDS: Sodium Chloride 0.9% 1,000 ML IV SCH (06:16)
[2017-06-27] MEDS: Pantoprazole 40 mg EC Tab PO SCH (10:28)
[2017-06-27] MEDS: POLYETHYLENE GLYCOL 3350 17 GM/Dose PACKET PO SCH (10:28)
[2017-06-27 12:10] LABS: HEMOGLOBIN 14.3 g/dL (12.0-18.0); MEAN CELL VOLUME 88.7 fL (80.0-94.0); MEAN CORPUSCULAR HEMOGLOBIN 30.9 pg (27.0-31.0); MEAN CORPUSCULAR HGB CONC 34.8 g/dL (33.0-37.0); MEAN PLATELET VOLUME 8.2 fL (7.2-11.7); RBC 4.62 Mil/uL (4.40-5.90); RED CELL DISTRIBUTION WIDTH 13.9 % (11.5-14.5); WHITE BLOOD COUNT 6.7 K/uL (4.8-10.8)
[2017-06-27 12:23] LABS: ALBUMIN 3.5 g/dL (3.5-5.0); ALT/SGPT 24 U/L (21-72); AST/SGOT 26 U/L (17-59); BLOOD UREA NITROGEN 12 mg/dL (9-20); CALCIUM 8.3 mg/dl (8.6-10.4); GFR AFRICAN-AMERICAN > 60; GFR NON-AFRICAN AMERICAN 52
--- NOTE | 2017-06-27 12:43 | CP.PCM.PN ---
Subjective - Date & Time of Evaluation Date of Evaluation: 06/27/17 Time of Evaluation: 12:40 - Subjective Subjective: CC: Abdominal pain Seemingly comfortable but patient states he is in constant pain. Says he hasn't eaten in 4 days and wants to eat. Will be going for angiogram today. Labwork is normal Objective - Vital Signs/Intake and Output Vital Signs (last 24 hours): Temp Pulse Resp BP Pulse Ox 97.5 F L 72 20 150/79 94 L 06/27/17 07:58 06/27/17 07:58 06/27/17 07:58 06/27/17 07:58 06/27/17 07:58 Intake and Output: 06/27/17 06/27/17 06:59 18:59 Intake Total 1440 Balance 1440 - Medications Medications: Current Medications Amitriptyline HCl (Elavil) 10 mg PO [facility] Last Admin: 06/26/17 22:28 Dose: 10 mg Sodium Chloride (Sodium Chloride 0.9%) 1,000 mls @ 50 mls/hr IV .Q20H [facility] Last Admin: 06/27/17 06:16 Dose: Not Given Pantoprazole Sodium (Protonix Ec Tab) 40 mg PO DAILY [facility] Last Admin: 06/27/17 10:28 Dose: 40 mg Polyethylene Glycol (Miralax) 17 gm PO DAILY [facility] Last Admin: 06/27/17 10:28 Dose: 17 gm Rosuvastatin Calcium (Crestor) 5 mg PO [facility] Last Admin: 06/26/17 22:28 Dose: 5 mg - Labs Labs: 06/27/17 12:02 06/27/17 12:02 PT 13.2 SECONDS (9.7-12.2) H 06/25/17 07:12 INR 1.2 06/25/17 07:12 APTT 26 SECONDS (21-34) 06/22/17 17:05 - Constitutional Appears: Well, No Acute Distress - Head Exam Head Exam: NORMOCEPHALIC - Eye Exam Eye Exam: absent: Scleral icterus - Neck Exam Neck Exam: Normal Inspection - Respiratory Exam Respiratory Exam: NORMAL BREATHING PATTERN - Cardiovascular Exam Cardiovascular Exam: REGULAR RHYTHM - GI/Abdominal Exam GI & Abdominal Exam: Soft. absent: Guarding, Tenderness, Mass, Rebound Assessment and Plan (1) Abdominal pain Assessment & Plan: Chronic constant abdominal abdominal pain, without tenderness or lab abnormalities. Extensive workup has not revealed a source of this pain. Numerous admissions to this hospital with abdominal pain spanning the last few years. Celiac and ALEXIA disease noted on doppler study. This will be followed up with additional vascular studies Rec: Vascular consultation is recommended Status: Acute (2) Diverticulosis Assessment & Plan: Asymptomatic Status: Acute (3) Constipation Status: Acute
--- NOTE | 2017-06-27 12:57 | CP.PCM.CON ---
History of Present Illness - History of Present Illness History of Present Illness: 87yM with pmhx of HTN, HLD, DM, CKD, Sinus bradycardia s/p PPM 3yrs ago presenting with recurrent LUQ and periumbilical pain since January 2017. Pt reports a twisting pain that starts 20minutes after eating and nothing makes it better, pain also radiates to back and spine. Pt reports that when he is not eating he still has a dull ache but not as severe as eating. Denies any nausea or vomiting. Pt endorses a 10pound wt loss over 3 weeks but reports good appetite. Pt also reports he has 1-2BM daily that is regular but at certain times has constipation and takes stool softer. He reports has two GI doctors one [place] [facility] [place] Mrat[place] who did EGD/Colonoscopy in January 2017 for anemia and found only polyps Pt also sees Dr. Thomas and had an EGD 06/12/17 found to have gastritis, no biopsy, stool antigen for H.pylori was negative. Pt has had multiple admission since January 2017 and to recent June 17, 2017 and diagnosed with diverticulitis of sigmoid colon and treated with cipro/flagyl with no improvement. Recently dx with IBS and started on rifaxamin which he is still taking with no improvement. Pt has had CT A/P wo contrast due to renal disease showing mild thickening of sigmoid colon and stool in colon. ROS: A 12pt ROS was negative except as above. PmHx: As stated in HPI; CKD has been stable- stage 3 PsHx: Cholecystectomy 5yrs ago, PPM SHx: Denies tobacco, social drinker when younger, no drugs FHx: Denies pancreatic or colon cancer; no CKD Review of Systems - Review of Systems All systems: reviewed and no additional remarkable complaints except Review of Systems: as stated in HPI Past Patient History - Infectious Disease Hx of Infectious Diseases: None - Past Medical History & Family History Past Medical History?: Yes Past Family History: Reviewed and not pertinent - Past Social History Smoking Status: Never Smoked Chewing Tobacco Use: No Cigar Use: No Drugs: Denies Home Situation {Lives}: With Family - CARDIAC Hx Cardiac Disorders: Yes (HX PM) Hx Hypertension: Yes - PULMONARY Hx Respiratory Disorders: No - NEUROLOGICAL Hx Neurological Disorder: No - HEENT Hx HEENT Problems: No - RENAL Hx Chronic Kidney Disease: No - ENDOCRINE/METABOLIC Hx Diabetes Mellitus Type 2: Yes - HEMATOLOGICAL/ONCOLOGICAL Hx Anemia: Yes Hx Human Immunodeficiency Virus (HIV): No - INTEGUMENTARY Hx Dermatological Problems: No - MUSCULOSKELETAL/RHEUMATOLOGICAL Hx Arthritis: Yes (l knee, BACK) - GASTROINTESTINAL Hx Crohn's Disease: No Hx Diverticulitis: Yes Hx Gall Bladder Disease: No Hx Gastritis: No Hx Pancreatitis: No - GENITOURINARY/GYNECOLOGICAL Hx Genitourinary Disorders: No - PSYCHIATRIC Hx Anxiety: Yes Hx Substance Use: No - SURGICAL HISTORY Hx Cholecystectomy: Yes - ANESTHESIA Hx Anesthesia: Yes Hx Anesthesia Reactions: No Hx Malignant Hyperthermia: No Has any member of the family had a problem w/ anesthesia?: No Meds Allergies/Adverse Reactions: Allergies Allergy/AdvReac Type Severity Reaction Status Date / Time No Known Allergies Allergy Verified 06/22/17 16:03 - Medications Medications: Current Medications Amitriptyline HCl (Elavil) 10 mg PO HS [facility] Last Admin: 06/26/17 22:28 Dose: 10 mg Sodium Chloride (Sodium Chloride 0.9%) 1,000 mls @ 50 mls/hr IV .Q20H [facility] Last Admin: 06/27/17 06:16 Dose: Not Given Pantoprazole Sodium (Protonix Ec Tab) 40 mg PO DAILY [facility] Last Admin: 06/27/17 10:28 Dose: 40 mg Polyethylene Glycol (Miralax) 17 gm PO DAILY [facility] Last Admin: 06/27/17 10:28 Dose: 17 gm Rosuvastatin Calcium (Crestor) 5 mg PO [facility] Last Admin: 06/26/17 22:28 Dose: 5 mg Physical Exam - Constitutional Appears: No Acute Distress, Chronically Ill - Head Exam Head Exam: ATRAUMATIC, NORMAL INSPECTION - Eye Exam Eye Exam: EOMI, Normal appearance - Neck Exam Neck exam: Positive for: Normal Inspection. Negative for: Tenderness - Respiratory Exam Respiratory Exam: Clear to Auscultation Bilateral, NORMAL BREATHING PATTERN - Cardiovascular Exam Cardiovascular Exam: REGULAR RHYTHM, +S1 - GI/Abdominal Exam GI & Abdominal Exam: Soft, Tenderness - Extremities Exam Extremities exam: Positive for: normal inspection. Negative for: tenderness - Neurological Exam Neurological exam: Alert, CN II-XII Intact - Skin Skin Exam: Dry, Warm Results - Vital Signs Recent Vital Signs: Last Vital Signs Temp 97.5 F L 06/27/17 07:58 Pulse 72 06/27/17 07:58 Resp 20 06/27/17 07:58 BP 150/79 06/27/17 07:58 Pulse Ox 94 L 06/27/17 07:58 - Labs Result Diagrams: 06/27/17 12:02 06/27/17 12:02 Labs: Laboratory Results - last 24 hr 06/26/17 06/26/17 06/27/17 16:03 21:08 07:06 WBC RBC Hgb Hct MCV MCH MCHC RDW Plt Count MPV Sodium Potassium Chloride Carbon Dioxide Anion Gap BUN Creatinine Est GFR ( Amer) Est GFR (Non-Af Amer) POC Glucose (mg/dL) 147 H 186 H 135 H Random Glucose Calcium Total Bilirubin AST ALT Alkaline Phosphatase Total Protein Albumin Globulin Albumin/Globulin Ratio 06/27/17 06/27/17 06/27/17 11:36 12:02 12:02 WBC 6.7 RBC 4.62 Hgb 14.3 Hct 41.0 MCV 88.7 MCH 30.9 MCHC 34.8 RDW 13.9 Plt Count 174 MPV 8.2 Sodium 132 Potassium 4.0 Chloride 102 Carbon Dioxide 23 Anion Gap 11 BUN 12 Creatinine 1.3 Est GFR ( Amer) > 60 Est GFR (Non-Af Amer) 52 POC Glucose (mg/dL) 143 H Random Glucose 153 H Calcium 8.3 L Total Bilirubin 1.1 AST 26 ALT 24 Alkaline Phosphatase 56 Total Protein 7.1 Albumin 3.5 Globulin 3.6 Albumin/Globulin Ratio 1.0 Assessment & Plan (1) JENISE (acute kidney injury) Status: Acute (2) CKD (chronic kidney disease) stage 3, GFR 30-59 ml/min Status: Acute (3) CKD stage 3 due to type 2 diabetes mellitus Status: Acute (4) Diverticulosis Status: Acute - Assessment and Plan (Free Text) Assessment: Recent increase in creat related to dehydration CKD 3 has been stable for many years- followed in office. Creat decreaed to 1.3 now - believe pt can have CTA- evaluate for ischemic bowel Recheck urine studies Serial chemistries Would continue IV fluids for 4 hours post CTA Plan: As above
[2017-06-27] MEDS ORDERED: Iodixanol 320 MG/ML 100 ML BOTTLE IV ONE (13:11)
--- NOTE | 2017-06-27 16:11 | CT ---
CTA abdomen Indication: STENOSIS CELIAC, SPLENIC, ALEXIA Comparison: CT abdomen pelvis without contrast performed 06/09/17, SMA and celiac duplex ultrasound performed 06/24/17 Technique: Contrast dose: 100 mL Visipaque Total exam DLP: 656.46 Axial computed tomographic angiogram images of the abdomen and pelvis were performed after bolus administration of nonionic intravenous contrast. Multiplanar, 3D (maximum intensity projection) reconstructions of the aorta were created in the coronal and sagittal planes by the computed tomography technologist. This CT exam was performed using 1 or more of the falling dose reduction techniques: Automated exposure control, adjustment of the MAA and/or kV according to patient size, and/or use of iterative reconstruction technique. Findings: Mild bibasilar atelectasis. No visible pleural effusion or definite pneumothorax. Borderline cardiomegaly. Partially imaged pacer wires. Small pericardial effusion. Dense coronary artery calcifications. 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 There is normal course and contour of the abdominal aorta and common iliac arteries. Atherosclerotic calcifications of the aorta as well as at the level of the celiac and superior mesenteric artery origins. The celiac artery origin appears mildly narrowed. The celiac artery origin, superior mesenteric artery origin, and inferior mesenteric artery origin appear patent. Evidence of 2 left renal arteries and 1 right renal artery which appear patent. The liver appears within normal limits of size and morphology. The pancreas, spleen, and adrenal glands appear unremarkable. The kidneys enhance symmetrically without evidence of hydronephrosis or obstructing renal calculi. Cholecystectomy. No enlarged abdominal lymphadenopathy is identified. Visualized bowel loops appear within normal limits of caliber without evidence of obstruction. Extensive diverticulosis without CT evidence of acute diverticulitis. The appendix appears normal. No inflammatory changes are seen in the right lower quadrant to suggest acute appendicitis. No definite free air. The urinary bladder appears unremarkable. The prostate measures approximately 4.6 x 5.3 cm. No significant pelvic free fluid is identified. Degenerative changes of the spine. Impression: The celiac artery origin appears mildly narrowed. Celiac artery, SMA artery, and ALEXIA artery origins appear patent. Cholecystectomy. Extensive diverticulosis without CT evidence of acute diverticulitis. Enlarged prostate gland. Recommend correlation with PSA. Mild bibasilar atelectasis. Borderline cardiomegaly. Partially imaged pacer wires. Small pericardial effusion. Dense coronary artery calcifications. 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 Additional findings as above.
[2017-06-27 22:28] LABS: SQUAMOUS EPITHIAL < 1 /hpf (0-5); URINE BACTERIA RARE (<OCC); URINE BILIRUBIN NEGATIVE (NEGATIVE); URINE BLOOD NEGATIVE (NEGATIVE); URINE CLARITY Clear (Clear); URINE COLOR Yellow (YELLOW); URINE GLUCOSE (UA) 1+ mg/dL (Normal); URINE LEUKOCYTE ESTERASE NEG Leu/uL (Negative); URINE NITRATE NEGATIVE (NEGATIVE); URINE PROTEIN NEGATIVE (NEGATIVE)
[2017-06-28 08:27] LABS: HEMOGLOBIN 13.3 g/dL (12.0-18.0); MEAN CELL VOLUME 88.5 fL (80.0-94.0); MEAN CORPUSCULAR HEMOGLOBIN 30.8 pg (27.0-31.0); MEAN CORPUSCULAR HGB CONC 34.8 g/dL (33.0-37.0); MEAN PLATELET VOLUME 8.7 fL (7.2-11.7); RBC 4.31 Mil/uL (4.40-5.90); RED CELL DISTRIBUTION WIDTH 13.9 % (11.5-14.5)
[2017-06-28 08:48] LABS: ALB/GLOB RATIO 1.1 (1.0-2.1); ALBUMIN 3.3 g/dL (3.5-5.0); CALCIUM 8.1 mg/dl (8.6-10.4); MAGNESIUM 1.3 mg/dL (1.6-2.3)
[2017-06-28] MEDS: POLYETHYLENE GLYCOL 3350 17 GM/Dose PACKET PO SCH (10:17)
[2017-06-28] MEDS: Pantoprazole 40 mg EC Tab PO SCH (10:18)
[2017-06-28] MEDS: Sodium Chloride 0.9% 1,000 ML IV SCH (10:23)
--- NOTE | 2017-06-28 12:08 | CP.PCM.PN ---
Subjective - Date & Time of Evaluation Date of Evaluation: 06/28/17 Time of Evaluation: 12:06 - Subjective Subjective: continued abdominal pain no chest pain no urinary issues appetite ok no chest pain no rash no fever no headache Objective - Vital Signs/Intake and Output Vital Signs (last 24 hours): Temp Pulse Resp BP Pulse Ox 98.4 F 60 20 162/84 H 96 06/28/17 08:00 06/28/17 08:00 06/28/17 08:00 06/28/17 08:00 06/28/17 08:00 Intake and Output: 06/28/17 06/28/17 06:59 18:59 Intake Total 1140 Output Total 700 Balance 440 - Medications Medications: Current Medications Amitriptyline HCl (Elavil) 10 mg PO [facility] Last Admin: 06/27/17 21:39 Dose: 10 mg Sodium Chloride (Sodium Chloride 0.9%) 1,000 mls @ 50 mls/hr IV .Q20H [facility] Last Admin: 06/28/17 10:23 Dose: 50 mls/hr Isosorbide Mononitrate (Imdur Er) 30 mg PO DAILY [facility] Last Admin: 06/28/17 10:17 Dose: 30 mg Pantoprazole Sodium (Protonix Ec Tab) 40 mg PO DAILY [facility] Last Admin: 06/28/17 10:18 Dose: 40 mg Polyethylene Glycol (Miralax) 17 gm PO DAILY [facility] Last Admin: 06/28/17 10:17 Dose: 17 gm Rosuvastatin Calcium (Crestor) 5 mg PO [facility] Last Admin: 06/27/17 21:39 Dose: 5 mg - Labs Labs: 06/28/17 08:18 06/28/17 08:18 PT 13.2 SECONDS (9.7-12.2) H 06/25/17 07:12 INR 1.2 06/25/17 07:12 APTT 26 SECONDS (21-34) 06/22/17 17:05 - Constitutional Appears: Non-toxic, In Acute Distress - Head Exam Head Exam: ATRAUMATIC, NORMAL INSPECTION - Eye Exam Eye Exam: EOMI, Normal appearance - ENT Exam ENT Exam: Mucous Membranes Moist - Neck Exam Neck Exam: Full ROM. absent: Lymphadenopathy - Respiratory Exam Respiratory Exam: absent: Accessory Muscle Use - Cardiovascular Exam Cardiovascular Exam: REGULAR RHYTHM. absent: Rubs - GI/Abdominal Exam GI & Abdominal Exam: Distended, Guarding, Normal Bowel Sounds - Neurological Exam Neurological Exam: Alert, Awake, Oriented x3 Assessment and Plan - Assessment and Plan (Free Text) Assessment: ckd post contrast procedure continue to trend labs and offer gentle hydration while patient is NPO GI and surgery follow up for chronic abdominal pain
--- NOTE | 2017-06-28 12:59 | CP.PCM.PN ---
Subjective - Date & Time of Evaluation Date of Evaluation: 06/28/17 Time of Evaluation: 12:56 - Subjective Subjective: COVERING DR BOWERS/ANGELICA Still with pain but tolerating liquids Review of CTA shows mild narrowing of Celiac axis/origin but normal patent vessels below. Objective - Vital Signs/Intake and Output Vital Signs (last 24 hours): Temp Pulse Resp BP Pulse Ox 98.4 F 60 20 162/84 H 96 06/28/17 08:00 06/28/17 08:00 06/28/17 08:00 06/28/17 08:00 06/28/17 08:00 Intake and Output: 06/28/17 06/28/17 06:59 18:59 Intake Total 1140 Output Total 700 Balance 440 - Medications Medications: Current Medications Amitriptyline HCl (Elavil) 10 mg PO [facility] Last Admin: 06/27/17 21:39 Dose: 10 mg Sodium Chloride (Sodium Chloride 0.9%) 1,000 mls @ 50 mls/hr IV .Q20H [facility] Last Admin: 06/28/17 10:23 Dose: 50 mls/hr Isosorbide Mononitrate (Imdur Er) 30 mg PO DAILY [facility] Last Admin: 06/28/17 10:17 Dose: 30 mg Pantoprazole Sodium (Protonix Ec Tab) 40 mg PO DAILY [facility] Last Admin: 06/28/17 10:18 Dose: 40 mg Polyethylene Glycol (Miralax) 17 gm PO DAILY [facility] Last Admin: 06/28/17 10:17 Dose: 17 gm Rosuvastatin Calcium (Crestor) 5 mg PO [facility] Last Admin: 06/27/17 21:39 Dose: 5 mg - Labs Labs: 06/28/17 08:18 06/28/17 08:18 PT 13.2 SECONDS (9.7-12.2) H 06/25/17 07:12 INR 1.2 06/25/17 07:12 APTT 26 SECONDS (21-34) 06/22/17 17:05 - Constitutional Appears: Older Than Stated Age - Head Exam Head Exam: ATRAUMATIC, NORMOCEPHALIC - Eye Exam Eye Exam: EOMI, PERRL - Respiratory Exam Respiratory Exam: NORMAL BREATHING PATTERN - Cardiovascular Exam Cardiovascular Exam: REGULAR RHYTHM - GI/Abdominal Exam GI & Abdominal Exam: Soft, Normal Bowel Sounds. 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 Vascular surgical evaluation advised by Dr Bowers. Status: Acute (2) Abdominal pain Assessment & Plan: Etiology unclear. ?Celiac AA stenosis with abdominal angina? Status: Acute (3) Diverticulosis Status: Acute
--- NOTE | 2017-06-28 16:06 | CP.PCM.CON ---
History of Present Illness - History of Present Illness History of Present Illness: Vascular Surgery Dr. Pizano 87 y/o M w PMHx of HTN, DM2 presented to the ED on 06/22/17 c/o abd pain. Pt reports intermittent abd pain for the last few months to years. Pt has had multiple admissions 2/2 this abd pain. Pain is largely unchanged from past episodes. Pt indicated pain from periumbilical to (L) flank. Pt admits to diarrhea but denies F/C, N/V, hematochezia/melena. There are conflicting reports in the EMR as to whether this pain is associated w/ PO intake. Surgery consulted for celiac stenosis seen on abd CTA. PMHX: see above, anemia, CKD Meds: reviewed in chart NKDA PSHx: pacemaker, cholecystectomy SHx: denies tobacco, EtOH, drug use FHx: noncontributory Review of Systems - Review of Systems All systems: reviewed and no additional remarkable complaints except (see HPI) Past Patient History - Infectious Disease Hx of Infectious Diseases: None - Past Medical History & Family History Past Medical History?: Yes Past Family History: Reviewed and not pertinent - Past Social History Smoking Status: Never Smoked Chewing Tobacco Use: No Cigar Use: No Drugs: Denies Home Situation {Lives}: With Family - CARDIAC Hx Cardiac Disorders: Yes (HX PM) Hx Hypertension: Yes - PULMONARY Hx Respiratory Disorders: No - NEUROLOGICAL Hx Neurological Disorder: No - HEENT Hx HEENT Problems: No - RENAL Hx Chronic Kidney Disease: No - ENDOCRINE/METABOLIC Hx Diabetes Mellitus Type 2: Yes - HEMATOLOGICAL/ONCOLOGICAL Hx Anemia: Yes Hx Human Immunodeficiency Virus (HIV): No - INTEGUMENTARY Hx Dermatological Problems: No - MUSCULOSKELETAL/RHEUMATOLOGICAL Hx Arthritis: Yes (l knee, BACK) - GASTROINTESTINAL Hx Crohn's Disease: No Hx Diverticulitis: Yes Hx Gall Bladder Disease: No Hx Gastritis: No Hx Pancreatitis: No - GENITOURINARY/GYNECOLOGICAL Hx Genitourinary Disorders: No - PSYCHIATRIC Hx Anxiety: Yes Hx Substance Use: No - SURGICAL HISTORY Hx Cholecystectomy: Yes - ANESTHESIA Hx Anesthesia: Yes Hx Anesthesia Reactions: No Hx Malignant Hyperthermia: No Has any member of the family had a problem w/ anesthesia?: No Meds Allergies/Adverse Reactions: Allergies Allergy/AdvReac Type Severity Reaction Status Date / Time No Known Allergies Allergy Verified 06/22/17 16:03 - Medications Medications: Current Medications Amitriptyline HCl (Elavil) 10 mg PO HS [facility] Last Admin: 06/27/17 21:39 Dose: 10 mg Sodium Chloride (Sodium Chloride 0.9%) 1,000 mls @ 50 mls/hr IV .Q20H [facility] Last Admin: 06/28/17 10:23 Dose: 50 mls/hr Isosorbide Mononitrate (Imdur Er) 30 mg PO DAILY [facility] Last Admin: 06/28/17 10:17 Dose: 30 mg Pantoprazole Sodium (Protonix Ec Tab) 40 mg PO DAILY [facility] Last Admin: 06/28/17 10:18 Dose: 40 mg Polyethylene Glycol (Miralax) 17 gm PO DAILY [facility] Last Admin: 06/28/17 10:17 Dose: 17 gm Rosuvastatin Calcium (Crestor) 5 mg PO [facility] Last Admin: 06/27/17 21:39 Dose: 5 mg Physical Exam - Constitutional Appears: Non-toxic, No Acute Distress - Head Exam Head Exam: NORMAL INSPECTION - Eye Exam Eye Exam: Normal appearance - ENT Exam ENT Exam: Mucous Membranes Moist - Respiratory Exam Respiratory Exam: NORMAL BREATHING PATTERN. absent: Accessory Muscle Use, Respiratory Distress - GI/Abdominal Exam GI & Abdominal Exam: Soft. absent: Distended, Firm, Guarding, Rebound, Rigid, Tenderness - Extremities Exam Extremities exam: Positive for: normal inspection - Neurological Exam Neurological exam: Alert, Oriented x3 - Psychiatric Exam Psychiatric exam: Normal Affect, Normal Mood - Skin Skin Exam: Dry, Intact, Normal Color, Warm Results - Vital Signs Recent Vital Signs: Last Vital Signs Temp 98.4 F 06/28/17 08:00 Pulse 60 06/28/17 08:00 Resp 20 06/28/17 08:00 BP 162/84 H 06/28/17 08:00 Pulse Ox 96 06/28/17 08:00 - Labs Result Diagrams: 06/28/17 08:18 06/28/17 08:18 Labs: Laboratory Results - last 24 hr 06/27/17 06/27/17 06/27/17 16:35 21:52 22:20 WBC RBC Hgb Hct MCV MCH MCHC RDW Plt Count MPV Sodium Potassium Chloride Carbon Dioxide Anion Gap BUN Creatinine Est GFR ( Amer) Est GFR (Non-Af Amer) POC Glucose (mg/dL) 139 H 191 H Random Glucose Calcium Phosphorus Magnesium Total Bilirubin AST ALT Alkaline Phosphatase Total Protein Albumin Globulin Albumin/Globulin Ratio Urine Color Yellow Urine Clarity Clear Urine pH 6.0 Ur Specific [place] 1.021 Urine Protein Negative Urine Glucose (UA) 1+ H Urine Ketones Negative Urine Blood Negative Urine Nitrate Negative Urine Bilirubin Negative Urine Urobilinogen 2.0 Ur Leukocyte Esterase Neg Urine WBC (Auto) < 1 Urine RBC (Auto) < 1 Ur Squamous Epith Cells < 1 Urine Bacteria Rare Ur Random Sodium 06/27/17 06/28/17 06/28/17 22:20 07:06 08:18 WBC 5.0 RBC 4.31 L Hgb 13.3 Hct 38.1 MCV 88.5 MCH 30.8 MCHC 34.8 RDW 13.9 Plt Count 166 MPV 8.7 Sodium Potassium Chloride Carbon Dioxide Anion Gap BUN Creatinine Est GFR ( Amer) Est GFR (Non-Af Amer) POC Glucose (mg/dL) 139 H Random Glucose Calcium Phosphorus Magnesium Total Bilirubin AST ALT Alkaline Phosphatase Total Protein Albumin Globulin Albumin/Globulin Ratio Urine Color Urine Clarity Urine pH Ur Specific [place] Urine Protein Urine Glucose (UA) Urine Ketones Urine Blood Urine Nitrate Urine Bilirubin Urine Urobilinogen Ur Leukocyte Esterase Urine WBC (Auto) Urine RBC (Auto) Ur Squamous Epith Cells Urine Bacteria Ur Random Sodium 60 06/28/17 06/28/17 08:18 11:17 WBC RBC Hgb Hct MCV MCH MCHC RDW Plt Count MPV Sodium 133 Potassium 3.7 Chloride 103 Carbon Dioxide 24 Anion Gap 10 BUN 11 Creatinine 1.4 Est GFR ( Amer) 58 Est GFR (Non-Af Amer) 48 POC Glucose (mg/dL) 202 H Random Glucose 139 H Calcium 8.1 L Phosphorus 3.2 Magnesium 1.3 L Total Bilirubin 1.3 AST 22 ALT 27 Alkaline Phosphatase 50 Total Protein 6.4 Albumin 3.3 L Globulin 3.1 Albumin/Globulin Ratio 1.1 Urine Color Urine Clarity Urine pH Ur Specific [place] Urine Protein Urine Glucose (UA) Urine Ketones Urine Blood Urine Nitrate Urine Bilirubin Urine Urobilinogen Ur Leukocyte Esterase Urine WBC (Auto) Urine RBC (Auto) Ur Squamous Epith Cells Urine Bacteria Ur Random Sodium - Imaging and Cardiology CT scan - abdomen Status: Report reviewed by me Assessment & Plan - Assessment and Plan (Free Text) Assessment: 87 y/o M w/ chronic abd pain - CTA read as mild celiac stenosis --> unlikely the cause of his abd pain - f/u GI recs - cont pain management - advance diet as tolerated - no surgical intervention - cont medical management Pt discussed w/ Dr. Harinder Whitlock DO PGY2
--- NOTE | 2017-06-28 16:16 | CON ---
DATE: 06/28/2017 HISTORY OF PRESENT ILLNESS: The patient is an 87-year-old man admitted to the hospital with abdominal pain and I was asked to see because a number of tests done suggested perhaps intestinal ischemia. In particular, the patient had a duplex scan done of his celiac and SMA, which showed some increased velocities, particularly in the celiac access. Also with some findings of inferior mesenteric artery. Nonetheless, superior mesenteric artery was widely patent without any evidence of any ischemia. Subsequently, a CT angiogram was done and this did not show significant occlusive disease. There is some mild narrowing with some calcification at the origin of the celiac axis but the SMA was widely open and it appears that the inferior mesenteric artery although abnormal on the duplex scan appears to be normal on the CT angiogram. IMPRESSION: So, my impression is this is not a case of mesenteric ischemia. The patient has few risk factors for the same and I think that he could be managed expectantly. The cause of his pain, however, is entirely different matter and at this point, we have been unable to identify the cause of his rather acute abdominal pain, but it does not appear to be on the basis of intestinal ischemia. As all 3 vessels are open, there is some moderate stenosis of the celiac, but the superior mesenteric and inferior mesenteric arteries are patent. Marek Pizano Jr., MD
[2017-06-28] MEDS: Magnesium Sulfate 1 gm in D5W 1 GM/100 ML BAG IVPB SCH ×2 (16:25→17:24)
[2017-06-29] MEDS: Sodium Chloride 0.9% 1,000 ML IV SCH (05:33)
--- NOTE | 2017-06-29 08:37 | CP.PCM.PN ---
Subjective - Date & Time of Evaluation Date of Evaluation: 06/29/17 Time of Evaluation: 07:00 - Subjective Subjective: Vascular Surgery Dr. Pizano Pt S&E @bedside. NAEO. pt reports improved abd pain. denies F/C, N/V, D/C. tolerating diet. Objective - Vital Signs/Intake and Output Vital Signs (last 24 hours): Temp Pulse Resp BP Pulse Ox 98.1 F 65 20 137/70 98 06/29/17 00:00 06/29/17 00:00 06/29/17 00:00 06/29/17 00:00 06/29/17 00:00 Intake and Output: 06/29/17 06/29/17 06:59 18:59 Intake Total 600 Balance 600 - Medications Medications: Current Medications Amitriptyline HCl (Elavil) 10 mg PO [facility] Last Admin: 06/28/17 21:50 Dose: 10 mg Sodium Chloride (Sodium Chloride 0.9%) 1,000 mls @ 50 mls/hr IV .Q20H [facility] Last Admin: 06/29/17 05:33 Dose: 50 mls/hr Isosorbide Mononitrate (Imdur Er) 30 mg PO DAILY [facility] Last Admin: 06/28/17 10:17 Dose: 30 mg Pantoprazole Sodium (Protonix Ec Tab) 40 mg PO DAILY [facility] Last Admin: 06/28/17 10:18 Dose: 40 mg Polyethylene Glycol (Miralax) 17 gm PO DAILY [facility] Last Admin: 06/28/17 10:17 Dose: 17 gm Rosuvastatin Calcium (Crestor) 5 mg PO [facility] Last Admin: 06/28/17 21:50 Dose: 5 mg - Labs Labs: 06/28/17 08:18 06/28/17 08:18 PT 13.2 SECONDS (9.7-12.2) H 06/25/17 07:12 INR 1.2 06/25/17 07:12 APTT 26 SECONDS (21-34) 06/22/17 17:05 - Constitutional Appears: Non-toxic, No Acute Distress - Head Exam Head Exam: NORMAL INSPECTION - Eye Exam Eye Exam: Normal appearance - ENT Exam ENT Exam: Mucous Membranes Moist - Respiratory Exam Respiratory Exam: NORMAL BREATHING PATTERN. absent: Accessory Muscle Use, Respiratory Distress - GI/Abdominal Exam GI & Abdominal Exam: Soft. absent: Distended, Tenderness - Extremities Exam Extremities Exam: Normal Inspection - Neurological Exam Neurological Exam: Alert, Awake, Oriented x3 - Psychiatric Exam Psychiatric exam: Normal Affect, Normal Mood - Skin Skin Exam: Dry, Intact, Normal Color, Warm Assessment and Plan - Assessment and Plan (Free Text) Assessment: 87 y/o M w/ chronic abd pain - cont pain management - f/u GI recs - advance diet as tolerated - GI/DVT PPx - encourage OOB to chair/Amb - no surgical intervention - cont medical management Pt discussed w/ Dr. Harinder Whitlock DO PGY2
[2017-06-29] MEDS: Pantoprazole 40 mg EC Tab PO SCH (09:47)
[2017-06-29] MEDS: POLYETHYLENE GLYCOL 3350 17 GM/Dose PACKET PO SCH (09:47)
--- NOTE | 2017-06-29 12:55 | CP.PCM.PN ---
Subjective - Date & Time of Evaluation Date of Evaluation: 06/29/17 Time of Evaluation: 12:53 - Subjective Subjective: COVERING DR BOWERS/ANGELICA Much less pain and tolerating diet Objective - Vital Signs/Intake and Output Vital Signs (last 24 hours): Temp Pulse Resp BP Pulse Ox 98.7 F 61 20 169/82 H 97 06/29/17 08:38 06/29/17 08:38 06/29/17 08:38 06/29/17 08:38 06/29/17 08:38 Intake and Output: 06/29/17 06/29/17 06:59 18:59 Intake Total 600 Balance 600 - Medications Medications: Current Medications Amitriptyline HCl (Elavil) 10 mg PO HS [facility] Last Admin: 06/28/17 21:50 Dose: 10 mg Sodium Chloride (Sodium Chloride 0.9%) 1,000 mls @ 50 mls/hr IV .Q20H [facility] Last Admin: 06/29/17 05:33 Dose: 50 mls/hr Isosorbide Mononitrate (Imdur Er) 30 mg PO DAILY [facility] Last Admin: 06/29/17 09:47 Dose: 30 mg Pantoprazole Sodium (Protonix Ec Tab) 40 mg PO DAILY [facility] Last Admin: 06/29/17 09:47 Dose: 40 mg Polyethylene Glycol (Miralax) 17 gm PO DAILY [facility] Last Admin: 06/29/17 09:47 Dose: 17 gm Rosuvastatin Calcium (Crestor) 5 mg PO HS [facility] Last Admin: 06/28/17 21:50 Dose: 5 mg - Labs Labs: 06/28/17 08:18 06/28/17 08:18 PT 13.2 SECONDS (9.7-12.2) H 06/25/17 07:12 INR 1.2 06/25/17 07:12 APTT 26 SECONDS (21-34) 06/22/17 17:05 - Constitutional Appears: Older Than Stated Age - Head Exam Head Exam: ATRAUMATIC, NORMOCEPHALIC - Respiratory Exam Respiratory Exam: NORMAL BREATHING PATTERN - Cardiovascular Exam Cardiovascular Exam: REGULAR RHYTHM - GI/Abdominal Exam GI & Abdominal Exam: Distended, Soft, Normal Bowel Sounds. absent: Tenderness Additional comments: mildly distended with guarding to deep palpation only, no rebound or masses - Extremities Exam Extremities Exam: Normal Inspection Assessment and Plan (1) Celiac artery stenosis Assessment & Plan: Unlikely to be candidate for vascular procedure given patent flow. Status: Acute (2) Abdominal pain Assessment & Plan: Pain has improved Continue supportive care Status: Acute (3) Diverticulosis Status: Chronic
[2017-06-30] MEDS: Sodium Chloride 0.9% 1,000 ML IV SCH (02:45)
[2017-06-30 08:37] LABS: BASO # 0.1 K/uL (0.0-0.2); BASO % 1.4 % (0.0-2.0); EOS # 0.4 K/uL (0.0-0.7); EOS % 7.5 % (0.0-4.0); HEMOGLOBIN 14.2 g/dL (12.0-18.0); LYMPH # 1.8 K/uL (1.0-4.3); LYMPH % 36.8 % (20.0-40.0); MEAN CELL VOLUME 88.6 fL (80.0-94.0); MEAN CORPUSCULAR HEMOGLOBIN 30.7 pg (27.0-31.0); MEAN CORPUSCULAR HGB CONC 34.7 g/dL (33.0-37.0); MEAN PLATELET VOLUME 8.8 fL (7.2-11.7); MONO # 0.6 K/uL (0.0-0.8); MONO % 11.2 % (0.0-10.0); NEUT # 2.1 K/uL (1.8-7.0); NEUT % 43.1 % (50.0-75.0); NRBC % 0.1 % (0.0-2.0); RBC 4.63 Mil/uL (4.40-5.90); RED CELL DISTRIBUTION WIDTH 13.8 % (11.5-14.5)
[2017-06-30 09:10] LABS: ALB/GLOB RATIO 1.1 (1.0-2.1); ALBUMIN 3.6 g/dL (3.5-5.0); CALCIUM 7.9 mg/dl (8.6-10.4)
[2017-06-30] MEDS: POLYETHYLENE GLYCOL 3350 17 GM/Dose PACKET PO SCH (09:44)
[2017-06-30] MEDS: Pantoprazole 40 mg EC Tab PO SCH (09:44)
--- NOTE | 2017-06-30 11:46 | CP.PCM.PN ---
Subjective - Date & Time of Evaluation Date of Evaluation: 06/30/17 Time of Evaluation: 11:43 - Subjective Subjective: CTA results noted On advancing diet Still on IV fluids Creat stable at 1.4 Less abdominal pain overall Objective - Vital Signs/Intake and Output Vital Signs (last 24 hours): Temp Pulse Resp BP Pulse Ox 97.9 F 62 20 152/83 H 97 06/30/17 08:15 06/30/17 08:15 06/30/17 08:15 06/30/17 08:15 06/30/17 08:15 Intake and Output: 06/30/17 06/30/17 06:59 18:59 Intake Total 300 Balance 300 - Medications Medications: Current Medications Amitriptyline HCl (Elavil) 10 mg PO HS [facility] Last Admin: 06/29/17 22:02 Dose: 10 mg Sodium Chloride (Sodium Chloride 0.9%) 1,000 mls @ 50 mls/hr IV .Q20H [facility] Last Admin: 06/30/17 02:45 Dose: 50 mls/hr Isosorbide Mononitrate (Imdur Er) 30 mg PO DAILY [facility] Last Admin: 06/30/17 09:44 Dose: 30 mg Pantoprazole Sodium (Protonix Ec Tab) 40 mg PO DAILY [facility] Last Admin: 06/30/17 09:44 Dose: 40 mg Polyethylene Glycol (Miralax) 17 gm PO DAILY [facility] Last Admin: 06/30/17 09:44 Dose: 17 gm Rosuvastatin Calcium (Crestor) 5 mg PO [facility] Last Admin: 06/29/17 22:02 Dose: 5 mg - Labs Labs: 06/30/17 08:27 06/30/17 08:27 PT 13.2 SECONDS (9.7-12.2) H 06/25/17 07:12 INR 1.2 06/25/17 07:12 APTT 26 SECONDS (21-34) 06/22/17 17:05 - Constitutional Appears: No Acute Distress, Chronically Ill - Head Exam Head Exam: ATRAUMATIC, NORMAL INSPECTION - Eye Exam Eye Exam: EOMI, Normal appearance - Neck Exam Neck Exam: Normal Inspection. absent: Tenderness - Respiratory Exam Respiratory Exam: Clear to Ausculation Bilateral, NORMAL BREATHING PATTERN - Cardiovascular Exam Cardiovascular Exam: REGULAR RHYTHM, +S1 - GI/Abdominal Exam GI & Abdominal Exam: Soft, Tenderness - Extremities Exam Extremities Exam: Normal Inspection. absent: Tenderness - Neurological Exam Neurological Exam: Alert, CN II-XII Intact - Skin Skin Exam: Dry, Warm Assessment and Plan (1) JENISE (acute kidney injury) Status: Acute (2) CKD (chronic kidney disease) stage 3, GFR 30-59 ml/min Status: Acute (3) CKD stage 3 due to type 2 diabetes mellitus Status: Acute (4) Diverticulosis Status: Chronic - Assessment and Plan (Free Text) Plan: Stop IV fluids Advance diet Monitor for increased pain
--- NOTE | 2017-06-30 12:02 | CP.PCM.PN ---
Subjective - Date & Time of Evaluation Date of Evaluation: 06/30/17 Time of Evaluation: 11:58 - Subjective Subjective: Surgery Pt s&e. Pt reports abd pain. Denies F/C/N/v/D/CP/SOB. Reports bloody stool. Objective - Vital Signs/Intake and Output Vital Signs (last 24 hours): Temp Pulse Resp BP Pulse Ox 97.9 F 62 20 152/83 H 97 06/30/17 08:15 06/30/17 08:15 06/30/17 08:15 06/30/17 08:15 06/30/17 08:15 Intake and Output: 06/30/17 06/30/17 06:59 18:59 Intake Total 300 Balance 300 - Medications Medications: Current Medications Amitriptyline HCl (Elavil) 10 mg PO [facility] Last Admin: 06/29/17 22:02 Dose: 10 mg Isosorbide Mononitrate (Imdur Er) 30 mg PO DAILY [facility] Last Admin: 06/30/17 09:44 Dose: 30 mg Pantoprazole Sodium (Protonix Ec Tab) 40 mg PO DAILY [facility] Last Admin: 06/30/17 09:44 Dose: 40 mg Polyethylene Glycol (Miralax) 17 gm PO DAILY [facility] Last Admin: 06/30/17 09:44 Dose: 17 gm Rosuvastatin Calcium (Crestor) 5 mg PO HS [facility] Last Admin: 06/29/17 22:02 Dose: 5 mg - Labs Labs: 06/30/17 08:27 06/30/17 08:27 PT 13.2 SECONDS (9.7-12.2) H 06/25/17 07:12 INR 1.2 06/25/17 07:12 APTT 26 SECONDS (21-34) 06/22/17 17:05 - Constitutional Appears: No Acute Distress - Head Exam Head Exam: ATRAUMATIC, NORMAL INSPECTION, NORMOCEPHALIC - Eye Exam Eye Exam: EOMI, Normal appearance, PERRL Pupil Exam: NORMAL ACCOMODATION, PERRL - ENT Exam ENT Exam: Mucous Membranes Moist, Normal Exam - Neck Exam Neck Exam: Full ROM, Normal Inspection. absent: Lymphadenopathy - Respiratory Exam Respiratory Exam: Clear to Ausculation Bilateral, NORMAL BREATHING PATTERN - Cardiovascular Exam Cardiovascular Exam: REGULAR RHYTHM, +S1, +S2. absent: Murmur - GI/Abdominal Exam GI & Abdominal Exam: Soft, Tenderness, Normal Bowel Sounds Additional comments: L abd TTP. - Extremities Exam Extremities Exam: Full ROM, Normal Capillary Refill, Normal Inspection. absent : Joint Swelling, Pedal Edema - Back Exam Back Exam: NORMAL INSPECTION - Neurological Exam Neurological Exam: Alert, Awake, CN II-XII Intact, Normal Gait, Oriented x3 - Psychiatric Exam Psychiatric exam: Normal Affect, Normal Mood - Skin Skin Exam: Dry, Intact, Normal Color, Warm Assessment and Plan - Assessment and Plan (Free Text) Assessment: 87 y/o M w/ chronic abd pain CTA : Celiac, SMA, ALEXIA patent - cont pain management - f/u GI recs - advance diet as tolerated - GI/DVT PPx - encourage OOB to chair/Amb - no surgical intervention - cont medical management Pt discussed w/ Dr. Pizano
--- NOTE | 2017-06-30 16:25 | CP.PCM.PN ---
Subjective - Date & Time of Evaluation Date of Evaluation: 06/30/17 Time of Evaluation: 16:25 - Subjective Subjective: Clinically unchanged Abdominal pain intermittently present. Extensive workup completed Objective - Vital Signs/Intake and Output Vital Signs (last 24 hours): Temp Pulse Resp BP Pulse Ox 97.9 F 62 20 152/83 H 97 06/30/17 08:15 06/30/17 08:15 06/30/17 08:15 06/30/17 08:15 06/30/17 08:15 Intake and Output: 06/30/17 06/30/17 06:59 18:59 Intake Total 300 350 Balance 300 350 - Medications Medications: Current Medications Amitriptyline HCl (Elavil) 10 mg PO HS [facility] Last Admin: 06/29/17 22:02 Dose: 10 mg Isosorbide Mononitrate (Imdur Er) 30 mg PO DAILY [facility] Last Admin: 06/30/17 09:44 Dose: 30 mg Pantoprazole Sodium (Protonix Ec Tab) 40 mg PO DAILY [facility] Last Admin: 06/30/17 09:44 Dose: 40 mg Polyethylene Glycol (Miralax) 17 gm PO DAILY [facility] Last Admin: 06/30/17 09:44 Dose: 17 gm Rosuvastatin Calcium (Crestor) 5 mg PO HS [facility] Last Admin: 06/29/17 22:02 Dose: 5 mg - Labs Labs: 06/30/17 08:27 06/30/17 08:27 PT 13.2 SECONDS (9.7-12.2) H 06/25/17 07:12 INR 1.2 06/25/17 07:12 APTT 26 SECONDS (21-34) 06/22/17 17:05 Assessment and Plan (1) Abdominal pain Status: Acute (2) Diverticulosis Status: Chronic (3) Constipation Status: Acute
--- NOTE | 2017-06-30 20:15 | CP.PCM.PN ---
Subjective - Date & Time of Evaluation Date of Evaluation: 06/30/17 Time of Evaluation: 20:15 - Subjective Subjective: pt is feeling ok no chest pain doing well will advance the diet seen by vascular no surgical intervention now Objective - Vital Signs/Intake and Output Vital Signs (last 24 hours): Temp Pulse Resp BP Pulse Ox 98.1 F 59 L 20 139/81 98 06/30/17 15:00 06/30/17 15:00 06/30/17 15:00 06/30/17 15:00 06/30/17 15:00 Intake and Output: 06/30/17 07/01/17 18:59 06:59 Intake Total 350 Balance 350 - Medications Medications: Current Medications Amitriptyline HCl (Elavil) 10 mg PO HS [facility] Last Admin: 06/29/17 22:02 Dose: 10 mg Isosorbide Mononitrate (Imdur Er) 30 mg PO DAILY [facility] Last Admin: 06/30/17 09:44 Dose: 30 mg Pantoprazole Sodium (Protonix Ec Tab) 40 mg PO DAILY [facility] Last Admin: 06/30/17 09:44 Dose: 40 mg Polyethylene Glycol (Miralax) 17 gm PO DAILY [facility] Last Admin: 06/30/17 09:44 Dose: 17 gm Rosuvastatin Calcium (Crestor) 5 mg PO HS [facility] Last Admin: 06/29/17 22:02 Dose: 5 mg - Labs Labs: 06/30/17 08:27 06/30/17 08:27 PT 13.2 SECONDS (9.7-12.2) H 06/25/17 07:12 INR 1.2 06/25/17 07:12 APTT 26 SECONDS (21-34) 06/22/17 17:05
[2017-07-01] MEDS: Pantoprazole 40 mg EC Tab PO SCH (11:06)
[2017-07-01] MEDS: POLYETHYLENE GLYCOL 3350 17 GM/Dose PACKET PO SCH (11:07)
--- NOTE | 2017-07-01 11:58 | CP.PCM.PN ---
Subjective - Date & Time of Evaluation Date of Evaluation: 07/01/17 Time of Evaluation: 11:56 - Subjective Subjective: pt seen and examined c/o left sided abdominal pain radiating to back no nausea vomiting diarrhea constipation fevers chills sob chest pain dysuria headache s/p ct sngio, noted no labs today Objective - Vital Signs/Intake and Output Vital Signs (last 24 hours): Temp Pulse Resp BP Pulse Ox 97.8 F 63 20 176/90 H 96 07/01/17 08:00 07/01/17 08:00 07/01/17 08:00 07/01/17 08:00 07/01/17 08:00 Intake and Output: 07/01/17 07/01/17 06:59 18:59 Intake Total 240 Balance 240 - Medications Medications: Current Medications Amitriptyline HCl (Elavil) 10 mg PO [facility] Last Admin: 06/30/17 21:25 Dose: 10 mg Isosorbide Mononitrate (Imdur Er) 30 mg PO DAILY [facility] Last Admin: 07/01/17 11:07 Dose: 30 mg Pantoprazole Sodium (Protonix Ec Tab) 40 mg PO DAILY [facility] Last Admin: 07/01/17 11:06 Dose: 40 mg Polyethylene Glycol (Miralax) 17 gm PO DAILY [facility] Last Admin: 07/01/17 11:07 Dose: 17 gm Rosuvastatin Calcium (Crestor) 5 mg PO [facility] Last Admin: 06/30/17 21:25 Dose: 5 mg - Labs Labs: 06/30/17 08:27 06/30/17 08:27 PT 13.2 SECONDS (9.7-12.2) H 06/25/17 07:12 INR 1.2 06/25/17 07:12 APTT 26 SECONDS (21-34) 06/22/17 17:05 - Constitutional Appears: Non-toxic, No Acute Distress - Head Exam Head Exam: NORMAL INSPECTION - Eye Exam Eye Exam: Normal appearance Pupil Exam: PERRL - ENT Exam ENT Exam: Mucous Membranes Moist, Normal Exam - Neck Exam Neck Exam: Normal Inspection - Respiratory Exam Respiratory Exam: Clear to Ausculation Bilateral, NORMAL BREATHING PATTERN - Cardiovascular Exam Cardiovascular Exam: REGULAR RHYTHM, RRR - GI/Abdominal Exam GI & Abdominal Exam: Distended (tenderness llq), Soft - Extremities Exam Extremities Exam: Normal Inspection Assessment and Plan (1) Hypertension Status: Acute (2) JENISE (acute kidney injury) Status: Acute (3) CKD (chronic kidney disease) stage 3, GFR 30-59 ml/min Status: Acute (4) CKD stage 3 due to type 2 diabetes mellitus Status: Acute (5) Abdominal discomfort Status: Acute - Assessment and Plan (Free Text) Assessment: labs ordered for tomorrow, monitor add norvasc for bp control abdominal pain work and management per primary team
--- NOTE | 2017-07-01 13:39 | CP.PCM.PN ---
Subjective - Date & Time of Evaluation Date of Evaluation: 07/01/17 Time of Evaluation: 13:38 - Subjective Subjective: F/U abdom pain SOn is present. reports still has abdom pain- variable locations- today left mid lateral. On and off. Denies CP, SOB, [facility], coughm constip , diarrh, RB, melena,SZ Objective - Vital Signs/Intake and Output Vital Signs (last 24 hours): Temp Pulse Resp BP Pulse Ox 97.8 F 63 20 176/90 H 96 07/01/17 08:00 07/01/17 08:00 07/01/17 08:00 07/01/17 08:00 07/01/17 08:00 Intake and Output: 07/01/17 07/01/17 06:59 18:59 Intake Total 240 Balance 240 - Medications Medications: Current Medications Amitriptyline HCl (Elavil) 10 mg PO [facility] Last Admin: 06/30/17 21:25 Dose: 10 mg Amlodipine Besylate (Norvasc) 5 mg PO DAILY [facility] Last Admin: 07/01/17 13:00 Dose: 5 mg Isosorbide Mononitrate (Imdur Er) 30 mg PO DAILY [facility] Last Admin: 07/01/17 11:07 Dose: 30 mg Pantoprazole Sodium (Protonix Ec Tab) 40 mg PO DAILY [facility] Last Admin: 07/01/17 11:06 Dose: 40 mg Polyethylene Glycol (Miralax) 17 gm PO DAILY [facility] Last Admin: 07/01/17 11:07 Dose: 17 gm Rosuvastatin Calcium (Crestor) 5 mg PO [facility] Last Admin: 06/30/17 21:25 Dose: 5 mg - Labs Labs: 06/30/17 08:27 06/30/17 08:27 PT 13.2 SECONDS (9.7-12.2) H 06/25/17 07:12 INR 1.2 06/25/17 07:12 APTT 26 SECONDS (21-34) 06/22/17 17:05 - Constitutional Appears: Well - Respiratory Exam Respiratory Exam: Clear to Ausculation Bilateral - Cardiovascular Exam Cardiovascular Exam: RRR - GI/Abdominal Exam GI & Abdominal Exam: Normal Bowel Sounds. absent: Guarding, Tenderness, Hernia , Mass - Neurological Exam Neurological Exam: Alert, Oriented x3 - Psychiatric Exam Psychiatric exam: Normal Affect Assessment and Plan (1) Abdominal pain Assessment & Plan: Unclear etiology. CTA was negative., but still consider vascular disease. COnsider IBS. EGD was done. Vascular reports NO intervention planned. Consider Neurology evaluation. Status: Acute (2) Diverticulosis Status: Chronic (3) Diabetes mellitus Assessment & Plan: Was on insulin in past, Status: Acute
--- NOTE | 2017-07-01 16:50 | CP.PCM.PN ---
Subjective - Date & Time of Evaluation Date of Evaluation: 07/01/17 Time of Evaluation: 16:25 - Subjective Subjective: PT CLEARED FOR D/C HOME TODAY BY DR. ENRIQUEZ AND CONSULTS; GI CLEARED. NO SURGICAL INTERVENTION BY SURGERY. PT TO F/U WITH DR. ALVARADO OR DR. ENRIQUEZ ON 07/04/17. SEE BELOW FOR D/C INFORMATION SENT WITH PT. ALL NEW RX SENT TO PHARMACY. NO FURTHER ORDERS. FOLLOW UP WITH DR. ENRIQUEZ OR DR. ALVARADO IN THE OFFICE THIS WEEK ON FRIDAY--- CALL FOR APPOINTMENT TIME. FOLLOW UP WITH DR. DOMINGUEZ OR ELISSA (STOMACH DOCTOR) IN THE OFFICE NEXT WEEK--- CALL FOR APPOINTMENT TIME. YOUR STOMACH PAIN MAY BE RELATED TO YOUR DIVERTICULOSIS AND SOME STIFFENING OF THE VESSELS IN YOUR ABDOMINAL AREA. AT THIS TIME THERE IS NO SURGERY THAT IS NECESSARY TO CORRECT THIS. IT IS VERY IMPORTANT THAT YOU FOLLOW UP WITH YOUR DOCTORS TO CONTINUOUSLY MONITOR THE PAIN. IF IT GETS WORSE DR. ENRIQUEZ CAN HAVE YOU SEEN IN THE OFFICE BY ANOTHER SPECIALIST. CONTINUE DAY CARE. CONTINUE YOUR HOME MEDICATIONS USUAL. YOU HAVE BEEN PRESCRIBED BY YOUR DOCTORS A NEW MEDICATION FOR YOUR BLOOD PRESSURE, ONE FOR CHOLESTEROL AND HEART PROTECTION, AND TWO TO HELP WITH THE STOMACH PAIN AND CONSTIPATION. CLINICAL INFORMATICS PHYSICIAN AT YOUR PHARMACY TONIGHT OR TOMORROW. FOR FURTHER QUESTIONS, CONTACT DR. ENRIQUEZ. Objective - Vital Signs/Intake and Output Vital Signs (last 24 hours): Temp Pulse Resp BP Pulse Ox 97.8 F 71 20 161/71 H 97 07/01/17 08:00 07/01/17 13:55 07/01/17 13:55 07/01/17 13:55 07/01/17 13:55 Intake and Output: 07/01/17 07/01/17 06:59 18:59 Intake Total 240 Balance 240 - Medications Medications: Current Medications Amitriptyline HCl (Elavil) 10 mg PO [facility] Last Admin: 06/30/17 21:25 Dose: 10 mg Amlodipine Besylate (Norvasc) 5 mg PO DAILY [facility] Last Admin: 07/01/17 13:00 Dose: 5 mg Isosorbide Mononitrate (Imdur Er) 30 mg PO DAILY [facility] Last Admin: 07/01/17 11:07 Dose: 30 mg Pantoprazole Sodium (Protonix Ec Tab) 40 mg PO DAILY [facility] Last Admin: 07/01/17 11:06 Dose: 40 mg Polyethylene Glycol (Miralax) 17 gm PO DAILY [facility] Last Admin: 07/01/17 11:07 Dose: 17 gm Rosuvastatin Calcium (Crestor) 5 mg PO [facility] Last Admin: 06/30/17 21:25 Dose: 5 mg - Labs Labs: 06/30/17 08:27 06/30/17 08:27 PT 13.2 SECONDS (9.7-12.2) H 06/25/17 07:12 INR 1.2 06/25/17 07:12 APTT 26 SECONDS (21-34) 06/22/17 17:05
--- NOTE | 2017-07-01 22:41 | CP.PCM.DIS ---
Provider - Provider Date of Admission: 06/22/17 17:27 Attending physician: Todd Enriquez MD Hospital Course - Lab Results Lab Results: Most Recent Lab Values WBC 5.0 K/uL (4.8-10.8) 06/30/17 08: RBC 4.63 Mil/uL (4.40-5.90) 06/30/17 08: Hgb 14.2 g/dL (12.0-18.0) 06/30/17 08: Hct 41.0 % (35.0-51.0) 06/30/17 08: MCV 88.6 fL (80.0-94.0) 06/30/17: MCH 30.7 pg (27.0-31.0) 06/30/17 08: MCHC 34.7 g/dL (33.0-37.0) 06/30/17: RDW 13.8 % (11.5-14.5) 06/30/17: Plt Count 176 K/uL (130-400) 06/30/17 08: MPV 8.8 fL (7.2-11.7) 06/30/17 08: Neut % (Auto) 43.1 % (50.0-75.0) L 06/30/17: Lymph % (Auto) 36.8 % (20.0-40.0) 06/30/17: [place] % (Auto) 11.2 % (0.0-10.0) H 06/30/17: Eos % (Auto) 7.5 % (0.0-4.0) H 06/30/17: Baso % (Auto) 1.4 % (0.0-2.0) 06/30/17: Neut # 2.1 K/uL (1.8-7.0) 06/30/17: Lymph # 1.8 K/uL (1.0-4.3) 06/30/17 08: [place] # 0.6 K/uL (0.0-0.8) 06/30/17 08: Eos # 0.4 K/uL (0.0-0.7) 06/30/17: Baso # 0.1 K/uL (0.0-0.2) 06/30/17 08:27 PT 13.2 SECONDS (9.7-12.2) H 06/25/17 07:12 INR 1.2 06/25/17 07:12 APTT 26 SECONDS (21-34) 06/22/17 17:05 Sodium 134 mmol/L (132-148) 06/30/17 08:27 Potassium 3.8 mmol/L (3.6-5.2) 06/30/17 08:27 Chloride 103 mmol/L (98-107) 06/30/17 08:27 Carbon Dioxide 23 mmol/L (22-30) 06/30/17 08:27 Anion Gap 12 (10-20) 06/30/17 08:27 BUN 9 mg/dL (9-20) 06/30/17 08:27 Creatinine 1.4 mg/dL (0.8-1.5) 06/30/17 08:27 Est GFR ( Amer) 58 06/30/17 08:27 Est GFR (Non-Af Amer) 48 06/30/17 08:27 POC Glucose (mg/dL) 188 mg/dL (65-110) H 07/01/17 16:30 Random Glucose 187 mg/dL (75-110) H 06/30/17 08:27 Calcium 7.9 mg/dl (8.6-10.4) L 06/30/17 08:27 Phosphorus 3.2 mg/dL (2.5-4.5) 06/28/17 08:18 Magnesium 1.3 mg/dL (1.6-2.3) L 06/28/17 08:18 Total Bilirubin 1.4 mg/dL (0.2-1.3) H 06/30/17 08:27 AST 31 U/L (17-59) 06/30/17 08:27 ALT 23 U/L (21-72) 06/30/17 08:27 Alkaline Phosphatase 60 U/L (38-126) 06/30/17 08:27 Total Protein 6.9 g/dL (6.3-8.3) 06/30/17 08:27 Albumin 3.6 g/dL (3.5-5.0) 06/30/17 08:27 Globulin 3.3 gm/dL (2.2-3.9) 06/30/17 08:27 Albumin/Globulin Ratio 1.1 (1.0-2.1) 06/30/17 08:27 Lipase 51 U/L (23-300) 06/22/17 17:05 Urine Color Yellow (YELLOW) 06/27/17 22:20 Urine Clarity Clear (Clear) 06/27/17 22:20 Urine pH 6.0 (5.0-8.0) 06/27/17 22:20 Ur Specific [place] 1.021 (1.003-1.030) 06/27/17 22:20 Urine Protein Negative mg/dL (NEGATIVE) 06/27/17 22:20 Urine Glucose (UA) 1+ mg/dL (Normal) H 06/27/17 22:20 Urine Ketones Negative mg/dL (NEGATIVE) 06/27/17 22:20 Urine Blood Negative (NEGATIVE) 06/27/17 22:20 Urine Nitrate Negative (NEGATIVE) 06/27/17 22:20 Urine Bilirubin Negative (NEGATIVE) 06/27/17 22:20 Urine Urobilinogen 2.0 mg/dL (0.2-1.0) 06/27/17 22:20 Ur Leukocyte Esterase Neg [place]/uL (Negative) 06/27/17 22:20 Urine WBC (Auto) < 1 /hpf (0-5) 06/27/17 22:20 Urine RBC (Auto) < 1 /hpf (0-3) 06/27/17 22:20 Ur Squamous Epith Cells < 1 /hpf (0-5) 06/27/17 22:20 Urine Bacteria Rare (<OCC) 06/27/17 22:20 Ur Random Sodium 60 mmol/L 06/27/17 22:20 Urine Chloride 67 mmol/L (32-290) 06/27/17 22:20 Discharge Exam - Head Exam Head Exam: NORMAL INSPECTION Discharge Plan - Discharge Medications Prescriptions: Rosuvastatin Calcium [Crestor] 5 mg PO HS #30 tab Amitriptyline [Elavil] 10 mg PO HS #30 tab Polyethylene Glycol 3350 [Miralax] 17 gm PO DAILY #30 packet amLODIPine [Norvasc] 5 mg PO DAILY #30 tab Pantoprazole [Protonix EC Tab] 40 mg PO DAILY #30 ect - Follow Up Plan Condition: GOOD Disposition: HOME/ ROUTINE Instructions: Amitriptyline (By mouth), Amlodipine (By mouth), Pantoprazole ( By mouth), Polyethylene Glycol 3350 (By mouth), Rosuvastatin (By mouth), Diverticulosis (DC), Chronic Kidney Disease (DC), Abdominal Pain (ED) Additional Instructions: FOLLOW UP WITH DR. ENRIQUEZ OR DR. ALVARADO IN THE OFFICE THIS WEEK ON FRIDAY--- CALL FOR APPOINTMENT TIME. FOLLOW UP WITH DR. DOMINGUEZ OR ELISSA (STOMACH DOCTOR) IN THE OFFICE NEXT WEEK--- CALL FOR APPOINTMENT TIME. YOUR STOMACH PAIN MAY BE RELATED TO YOUR DIVERTICULOSIS AND SOME STIFFENING OF THE VESSELS IN YOUR ABDOMINAL AREA. AT THIS TIME THERE IS NO SURGERY THAT IS NECESSARY TO CORRECT THIS. IT IS VERY IMPORTANT THAT YOU FOLLOW UP WITH YOUR DOCTORS TO CONTINUOUSLY MONITOR THE PAIN. IF IT GETS WORSE DR. ENRIQUEZ CAN HAVE YOU SEEN IN THE OFFICE BY ANOTHER SPECIALIST. CONTINUE DAY CARE. CONTINUE YOUR HOME MEDICATIONS USUAL. YOU HAVE BEEN PRESCRIBED BY YOUR DOCTORS A NEW MEDICATION FOR YOUR BLOOD PRESSURE, ONE FOR CHOLESTEROL AND HEART PROTECTION, AND TWO TO HELP WITH THE STOMACH PAIN AND CONSTIPATION. SUSTAINMENT LOGISTICS ANALYST AT YOUR PHARMACY TONIGHT OR TOMORROW. FOR FURTHER QUESTIONS, CONTACT DR. ENRIQUEZ. Referrals: Jin Latif MD [Staff Provider] - Marek Pizano Jr., MD [Staff Provider] - Todd Enriquez MD [Staff Provider] - Chuck Dominguez MD [Staff Provider] - Boogie Mcgee MD [Staff Provider] -
[2017-07-01 23:05] VITALS: PULSE 68; O2SAT 96
[2017-07-02] VITALS: BP 109/68; TEMP 98.1
== END 2017-07-01 23:25 | disposition home or self-care (01) | DRG 392 ==
LOC: C.ER 15:57 → C.9E 17:27 → C.3T 06-23 15:12
PROVIDERS: ADMIT Internal Medicine; ATTEND Internal Medicine
DX: K57.10 Diverticulosis of small intestine without perforation or abscess without bleeding (principal); N17.9 Acute kidney failure, unspecified; K55.1 Chronic vascular disorders of intestine; I77.4 Celiac artery compression syndrome; E11.22 Type 2 diabetes mellitus with diabetic chronic kidney disease; N18.3 Chronic kidney disease, stage 3 (moderate); E86.0 Dehydration; K58.9 Irritable bowel syndrome, unspecified; K59.00 Constipation, unspecified; E78.5 Hyperlipidemia, unspecified; F41.9 Anxiety disorder, unspecified; M47.9 Spondylosis, unspecified; Z95.0 Presence of cardiac pacemaker; Z90.49 Acquired absence of other specified parts of digestive tract; M17.12 Unilateral primary osteoarthritis, left knee; I12.9 Hypertensive chronic kidney disease with stage 1 through stage 4 chronic kidney disease, or unspecified chronic kidney disease

== ENCOUNTER 2017-07-04 16:39 | Emergency (ER) | payer MEDICARE, MEDICAID ==
[2017-07-04 16:57] VITALS: BMI 27.6
--- NOTE | 2017-07-04 17:29 | C.PDOC ---
History Of Present Illness 87-YEAR-OLD MALE, PRESENTS TO THE EMERGENCY DEPARTMENT SP TRIP/FALL ON SIDEWALK PRIOR TO ARRIVAL. PATIENT STATES HE HIT HIS HEAD AND LEFT SHOULDER. NO LOSS OF CONSCIOUSNESS, NO NAUSEA/VOMITING. PATIENT STATES FAMILY IS AT BEDSIDE. 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 NO DIZZINESS, CHEST PAIN, SOB. OF NOTE, PT AMBULATORY ON SCENE. - HPI Time Seen by Provider: 07/04/17 17:21 Chief Complaint (Nursing): Trauma History Per: Patient History/Exam Limitations: no limitations Injury Occurred (Timing): Just Before Arrival Past Medical History Reviewed: Historical Data, Nursing Documentation, Vital Signs Vital Signs: Last Vital Signs Temp 97.5 F L 07/04/17 16:59 Pulse 82 07/04/17 17:50 Resp 17 07/04/17 17:50 BP 183/90 H 07/04/17 17:50 Pulse Ox 96 07/04/17 18:29 - Medical History PMH: Anemia, Anxiety, Arthritis (l knee, BACK), Diverticulitis, HTN Denies: Crohn's Disease, Gastritis, Gall Bladder Disease, HIV, Pancreatitis, Chronic Kidney Disease Surgical History: Cholecystectomy, Pacemaker (3 years ago) - [facility] Procedures COLONOSCOPY (11/30/14) ENDOSC POLYPECTOMY OF LG INTEST (03/13/07) INSPECTION OF UPPER INTESTINAL TRACT, ENDO (06/10/17) Family History: States: No Known Family Hx - Social History Hx Alcohol Use: No Hx Substance Use: No - Immunization History Hx Tetanus Toxoid Vaccination: No Hx Influenza Vaccination: Yes (2017) Hx Pneumococcal Vaccination: Yes Review Of Systems Except As Marked, All Systems Reviewed And Found Negative. Constitutional: Negative for: Fever, Chills Cardiovascular: Negative for: Chest Pain Respiratory: Negative for: Shortness of Breath Gastrointestinal: Negative for: Nausea, Vomiting, Abdominal Pain Musculoskeletal: Positive for: Shoulder Pain (LEFT) Neurological: Positive for: Other (HEAD INJ S/P MECH FALL). Negative for: Weakness, Numbness Physical Exam - Physical Exam Appears: Non-toxic, No Acute Distress Skin: Warm, Dry, No Rash Head: Abrasion, Other (ABRASION/HEMATOMA ON LEFT SCALP) Eye(s): bilateral: Normal Inspection, PERRL, EOMI Nose: Normal Oral Mucosa: Moist Lips: Normal Appearing Neck: Normal ROM, No Midline Cervical Tenderness, No Paracervical Tenderness, No Step Off Deformity Chest: Symmetrical Cardiovascular: Rhythm Regular, No Murmur Respiratory: Normal Breath Sounds, No Accessory Muscle Use Extremity: Tenderness, Deformity, Other (L SHOULDER LIMITED RANGE OF MOTION DUE TO PAIN W/ GROSS DEFORM) Pulses: Left Radial: Normal, Right Radial: Normal Neurological/Psych: Oriented x3, Normal Speech ED Course And Treatment O2 Sat by Pulse Oximetry: 96 - Other Rad L SHOULDER X-Ray: Interpreted by Me (NEG) Progress - Data Reviewed Data Reviewed: Lab, Diagnostic imaging, Old records Disposition - Disposition Disposition Time: 19:00 Condition: STABLE Forms: [email or web address] ([place]est[place]) - Clinical Impression Clinical Impression: Head injury due to trauma, Scalp abrasion, Shoulder injury - Scribe Statement The provider has reviewed the documentation as recorded by the Scribe (CURT HOOKER) All medical record entries made by the Scribe were at my direction and personally dictated by me. I have reviewed the chart and agree that the record accurately reflects my personal performance of the history, physical exam, medical decision making, and the department course for this patient. I have also personally directed, reviewed, and agree with the discharge instructions and disposition. Physician Patient Turnover Patient Signed Over To: Romana Han Handoff Comments: HALEY CT, DISPO
[2017-07-04] MEDS ORDERED: Tetanus/Diphtheria Toxoids 0.5 ml Syringe IM ONE ×2 (17:31→17:55)
[2017-07-04 17:35] VITALS: TEMP 97.5
--- NOTE | 2017-07-04 18:57 | CT ---
PROCEDURE: CT HEAD WITHOUT CONTRAST. HISTORY: TRAUMA COMPARISON: 01/12/2017 TECHNIQUE: Axial computed tomography images were obtained through the head/brain without intravenous contrast. Radiation dose: Total exam DLP = 1043.38 mGy-cm. This CT exam was performed using one or more of the following dose reduction techniques: Automated exposure control, adjustment of the mA and/or kV according to patient size, and/or use of iterative reconstruction technique. FINDINGS: HEMORRHAGE: No intracranial hemorrhage. BRAIN: No mass effect or edema. Mild diffuse atrophy consistent with patient age. No evidence of acute infarct. VENTRICLES: Unremarkable. No hydrocephalus. CALVARIUM: Unremarkable. PARANASAL SINUSES: Unremarkable as visualized. No significant inflammatory changes. MASTOID AIR CELLS: Unremarkable as visualized. No inflammatory changes. OTHER FINDINGS: None. IMPRESSION: No intracranial hemorrhage. Mild diffuse age-appropriate cerebral atrophy.
--- NOTE | 2017-07-04 19:01 | CT ---
PROCEDURE: CT Cervical Spine without contrast HISTORY: <TRAUMA> COMPARISON: None available. TECHNIQUE: Axial computed tomography images were obtained of the cervical spine without the use of intravenous contrast. Coronal and sagittal reformatted images were created and reviewed. Radiation dose: Total exam DLP = 471.53 mGy-cm. This CT exam was performed using one or more of the following dose reduction techniques: Automated exposure control, adjustment of the mA and/or kV according to patient size, and/or use of iterative reconstruction technique. FINDINGS: VERTEBRAE: The vertebral bodies are maintained in height. Normal vertebral alignment is maintained. The atlantoaxial articulation and odontoid process are intact. DISCS/SPINAL CANAL/NEURAL FORAMINA: There is narrowing of the C3-4, C5-6 and C6-7 intervertebral disc spaces consistent with degenerative disc disease. There is mild central cervical spinal stenosis at the C3-4 intervertebral disc space level. There is mild central spinal stenosis at the C5-6 and C6-7 intervertebral disc space levels. PARASPINAL SOFT TISSUES: Unremarkable. OTHER FINDINGS: None. IMPRESSION: No evidence of fracture or dislocation. Multilevel degenerative disc disease. Mild central spinal stenosis at multiple levels as above.
[2017-07-04 19:22] VITALS: BP 208/90; PULSE 54; RESP 20; O2SAT 98
--- NOTE | 2017-07-05 08:37 | RAD ---
PROCEDURE: Radiographs of the Left Shoulder HISTORY: TRAUMA COMPARISON: No prior. FINDINGS: BONES: Normal. No fracture. JOINTS: Glenohumeral articulation unremarkable. Acromioclavicular degenerative arthritis noted SOFT TISSUES: Normal. OTHER FINDINGS: None. IMPRESSION: Acromioclavicular degenerative arthritis. Otherwise unremarkable.
== END 2017-07-04 20:24 | disposition home or self-care (01) ==
LOC: C.ER 16:39
DX: S00.03XA Contusion of scalp, initial encounter (principal); S00.01XA Abrasion of scalp, initial encounter; S49.92XA Unspecified injury of left shoulder and upper arm, initial encounter; W01.0XXA Fall on same level from slipping, tripping and stumbling without subsequent striking against object, initial encounter; Y92.480 Sidewalk as the place of occurrence of the external cause

== ENCOUNTER 2018-10-10 12:49 | Inpatient (IN) | payer MEDICARE, MEDICAID | END 2018-11-04 18:26 | LOC: C.3T 10-11 21:05 → C.5S 10-23 10:39 → C.3T 10-26 14:20 → C.5S 10-28 10:16 → C.ER 12:49 → C.9I 10-16 21:36 → C.5S 10-23 22:13 → C.3T 17:47 | DX: L03.213 Periorbital cellulitis (principal); A41.9 Sepsis, unspecified organism; J96.00 Acute respiratory failure, unspecified whether with hypoxia or hypercapnia; J69.0 Pneumonitis due to inhalation of food and vomit; R65.20 Severe sepsis without septic shock; N17.9 Acute kidney failure, unspecified; I13.0 Hypertensive heart and chronic kidney disease with heart failure and stage 1 through stage 4 chronic kidney disease, or unspecified chronic kidney disease; N18.3 Chronic kidney disease, stage 3 (moderate); Z95.0 Presence of cardiac pacemaker; Z77.090 Contact with and (suspected) exposure to asbestos; H10.89 Other conjunctivitis; F41.9 Anxiety disorder, unspecified; E78.00 Pure hypercholesterolemia, unspecified; E11.319 Type 2 diabetes mellitus with unspecified diabetic retinopathy without macular edema ==